=== PATIENT | male | born 1950 | race Caucasian/White ===

== ENCOUNTER → 2017-04-26 | Outpatient (CLI) | payer OTHER ==
[~2017-04-26] MED LIST: ASPI-482 PO; CANA300T PO; CARV12.5 PO; CELE200C PO; CHOL10003 PO; CHOL500016 PO; FOLI1TAB16 PO; GLUC100018 PO; HYDR-2758 PO; LISI2.5T PO; MELA300T PO; SIMV10TA3 PO; TORS20TA2 PO; TRAM50TA PO; UBID200C8 PO; VITA80003 PO
--- NOTE | 2017-04-26 16:24 | RAD ---
FDG tumor localization scan, PET/CT, 04/26/2017: History: Restaging melanoma Following IV injection of 13.6 mCi of 18 F-FDG imaging was performed from the skull base through the proximal thighs. The patient refused to allow his legs to be scanned at this time. The noncontrast CT component was performed for attenuation correction and anatomic localization purposes rather than for primary diagnosis. The patient's blood glucose level at the time of injection was 107 MG/DL. There appears to have been prior surgical resection of the left parotid gland. There is a small hypermetabolic focus along the superior aspect of the surgical site along the lateral aspect of the left mandibular condyle. The maximum SUV at this level is 4.0. Just medial to this level along the posterior inferior aspect of the left mandibular condyle there is a smaller focus of mildly increased FDG uptake demonstrating a maximum SUV of 2.8. Just inferior to this level on the left there is an additional small focus of mildly increased activity demonstrated a maximum SUV of 3.1. This lies along the superior margin of a cluster of surgical clips. No other significant abnormal FDG uptake is seen in the neck. No abnormal pulmonary or mediastinal FDG uptake is seen. Normal GI tract and urinary tract activity is present in the abdomen and pelvis. No hypermetabolic abdominal or pelvic process is seen. There is a tiny focus of mildly increased activity involving the skin along the dorsal aspect of the distal left forearm. This is a nonspecific appearance and may be inflammatory. Clinical correlation is suggested. Incidental CT findings include the presence of scattered coronary artery calcifications. There is mild nonspecific prostatic enlargement. IMPRESSION: 1. Status post left parotid gland resection with small foci of increased FDG uptake near the surgical bed as described above. Tumor recurrence is a possibility. 2. No PET evidence of distant metastatic disease.
== END | disposition home or self-care (01) ==
LOC: PETSC 12:33
PROVIDERS: ATTEND Radiology Radiation Oncology
DX: N40.0 Benign prostatic hyperplasia without lower urinary tract symptoms (principal); C43.9 Malignant melanoma of skin, unspecified
CPT/HCPCS: 78815; A9552

== ENCOUNTER → 2017-06-01 | Outpatient (CLI) | payer OTHER ==
[2017-06-01] MEDS: GADOBUTROL 10 MMOL/10 ML VIAL IV (11:22)
== END | disposition home or self-care (01) ==
LOC: MRI 10:17
DX: R51 Headache (principal); C07 Malignant neoplasm of parotid gland; C77.0 Secondary and unspecified malignant neoplasm of lymph nodes of head, face and neck; C44.320 Squamous cell carcinoma of skin of unspecified parts of face; Z98.890 Other specified postprocedural states
CPT/HCPCS: 70553; A9585

== ENCOUNTER → 2017-11-15 | Outpatient (CLI) | payer OTHER | END | disposition home or self-care (01) | LOC: PETSC 10:37 | DX: C07 Malignant neoplasm of parotid gland (principal); I10 Essential (primary) hypertension; Z92.3 Personal history of irradiation | CPT/HCPCS: 78815; A9552 ==

== ENCOUNTER 2017-11-16 06:39 | Outpatient (CLI) | payer OTHER ==
[2017-11-16 07:04] LABS: ADD MAN DIFF? NO; BASO % 1 % (0-3); EOS # 0.2 x10^3/uL (0.0-0.7); EOS % 3 % (0-3); HEMATOCRIT 41.3 % (39.0-53.0); HEMOGLOBIN 14.5 g/dL (13.0-17.5); LYMPH # 0.9 x10^3/uL (1.0-4.8); LYMPH % 12 % (24-48); MEAN CORPUSCULAR HEMOGLOBIN 33 pg (25-35); MEAN CORPUSCULAR HGB CONC 35 g/dL (31-37); MEAN CORPUSCULAR VOLUME 95 fL (79-100); MONO # 0.7 x10^3/uL (0.0-1.1); MONO % 9 % (0-9); NEUT # 5.6 x10^3uL (1.8-7.7); NEUT % 75 % (31-73); PLATELET COUNT 241 x10^3/uL (140-400); RED BLOOD COUNT 4.38 x10^6/uL (4.30-5.70); RED CELL DISTRIBUTION WIDTH 12.8 % (11.5-14.5); WHITE BLOOD COUNT 7.4 x10^3/uL (4.0-11.0)
[2017-11-16 07:31] LABS: ANION GAP 2 (6-14); BLOOD UREA NITROGEN 21 mg/dL (8-26); CALCIUM 9.6 mg/dL (8.5-10.1); CARBON DIOXIDE 31 mmol/L (21-32); CHLORIDE 103 mmol/L (98-107); CREATININE 0.9 mg/dL (0.7-1.3); GFR 84.2; GLUCOSE 123 mg/dL (70-99); POTASSIUM 4.1 mmol/L (3.5-5.1); SODIUM 136 mmol/L (136-145)
[2017-11-16 07:51] LABS: INR 1.2 (0.8-1.1); PARTIAL THROMBOPLASTIN TIME 31 SEC (24-38); PROTHROMBIN TIME PATIENT 14.2 SEC (11.7-14.0)
[2017-11-16] MEDS ORDERED: HEPARIN PF 500 UNIT/5 ML DISP.SYRIN. IV (08:12)
[2017-11-16] MEDS ORDERED: LIDOCAINE 1%/EPI 1:100,000 20 ML VIAL. (08:12)
[2017-11-16] MEDS ORDERED: fentaNYL PF VIAL 100 MCG/2 ML VIAL (08:46)
[2017-11-16] MEDS ORDERED: MIDAZOLAM HCL/PF 2 MG/2 ML VIAL. (08:46)
[2017-11-16] MEDS: LIDOCAINE 1%/EPI 1:100,000 20 ML VIAL. INJ (09:31)
[2017-11-16] MEDS: HEPARIN PF 500 UNIT/5 ML DISP.SYRIN. IV (09:31)
[2017-11-16] MEDS: fentaNYL PF VIAL 100 MCG/2 ML VIAL IV (09:32)
[2017-11-16] MEDS: MIDAZOLAM HCL/PF 2 MG/2 ML VIAL. IV (09:33)
== END 2017-11-16 12:10 | disposition home or self-care (01) ==
LOC: INTRAD 06:39
DX: Z45.2 Encounter for adjustment and management of vascular access device (principal); C76.0 Malignant neoplasm of head, face and neck; I11.0 Hypertensive heart disease with heart failure; I50.9 Heart failure, unspecified; I25.10 Atherosclerotic heart disease of native coronary artery without angina pectoris; E11.9 Type 2 diabetes mellitus without complications; F41.9 Anxiety disorder, unspecified; I48.91 Unspecified atrial fibrillation; Z95.5 Presence of coronary angioplasty implant and graft; Z85.118 Personal history of other malignant neoplasm of bronchus and lung; Z87.440 Personal history of urinary (tract) infections; M19.90 Unspecified osteoarthritis, unspecified site; Z79.01 Long term (current) use of anticoagulants; Z79.84 Long term (current) use of oral hypoglycemic drugs
CPT/HCPCS: 36415; 36561; 76937; 77001; 80048; 85025; 85610; 85730; 99152; 99153; C1751; C1788; C1892; J0690; J2250; J3010; J3490

== ENCOUNTER 2017-12-31 16:36 | Inpatient (IN) | payer OTHER ==
[2017-12-31] MEDS: PANTOPRAZOLE IV PUSH 40 MG VIAL. IVP (17:56)
[2017-12-31] MEDS: ONDANSETRON PF 4 MG/2 ML VIAL. IV (17:57)
[2017-12-31] MEDS: LIDOCAINE 5% TOPICAL OINTMENT 35GM TUBE. TP (17:58)
[2017-12-31 18:06] LABS: ADD MAN DIFF? NO
[2017-12-31 18:08] LABS: BASO % 1 % (0-3); EOS % 0 % (0-3); HEMATOCRIT 32.7 % (39.0-53.0); HEMOGLOBIN 11.9 g/dL (13.0-17.5); LYMPH # 0.9 x10^3/uL (1.0-4.8); LYMPH % 11 % (24-48); MEAN CORPUSCULAR HEMOGLOBIN 34 pg (25-35); MEAN CORPUSCULAR HGB CONC 36 g/dL (31-37); MEAN CORPUSCULAR VOLUME 93 fL (79-100); MONO # 0.9 x10^3/uL (0.0-1.1); MONO % 11 % (0-9); NEUT # 6.4 x10^3uL (1.8-7.7); NEUT % 78 % (31-73); PLATELET COUNT 185 x10^3/uL (140-400); RED BLOOD COUNT 3.54 x10^6/uL (4.30-5.70); RED CELL DISTRIBUTION WIDTH 13.1 % (11.5-14.5); WHITE BLOOD COUNT 8.2 x10^3/uL (4.0-11.0)
[2017-12-31] MEDS: IV NORMAL SALINE 1000ML BAG 1,000 ML IV ×2 (18:15→22:59)
[2017-12-31 18:20] LABS: ANION GAP 9 (6-14); BLOOD UREA NITROGEN 16 mg/dL (8-26); CALCIUM 8.2 mg/dL (8.5-10.1); CARBON DIOXIDE 28 mmol/L (21-32); CHLORIDE 98 mmol/L (98-107); CREATININE 0.9 mg/dL (0.7-1.3); GFR 84.2; GLUCOSE 154 mg/dL (70-99); MAGNESIUM 1.4 mg/dL (1.8-2.4); SODIUM 135 mmol/L (136-145)
[2017-12-31 18:25] LABS: POTASSIUM 2.9 mmol/L (3.5-5.1)
[2017-12-31 18:27] LABS: TROPONINI < 0.017 ng/mL (0.000-0.055)
[2017-12-31 18:34] LABS: NT-PRO BNP 739 pg/mL (0-124)
[2017-12-31 18:34] LABS: CKMB MASS < 0.5 ng/mL (0.0-3.6); CREATINE KINASE 16 U/L (39-308)
[2017-12-31] MEDS: POTASSIUM CHLORIDE 20 MEQ TABLET.ER. PO (18:40)
[2017-12-31 18:53] LABS: BILIRUBIN,URINE NEGATIVE (NEG); CLARITY,URINE CLOUDY; COLOR,URINE YELLOW; GLUCOSE,URINE 250 mg/dL (NEG); NITRITE,URINE NEGATIVE (NEG); PROTEIN,URINE 30 mg/dL (NEG-TRACE); UROBILINOGEN,URINE 0.2 mg/dL (0.2 mg/dL)
[2017-12-31 19:01] LABS: AMORPHOUS SEDIMENT,UR PRESENT /HPF; BACTERIA,URINE 0 /HPF (0-FEW); RBC,URINE OCC /HPF (0-2)
[2017-12-31] MEDS ORDERED: ACETAMINOPHEN 325 MG TABLET. PO (21:00)
[2017-12-31] MEDS ORDERED: DEXTROSE 50% 25 GM / 50ML DISP.SYRIN. IV (21:00)
[2017-12-31] MEDS ORDERED: MORPHINE SULFATE 4 MG/ML DISP.SYRIN. IV (21:00)
[2017-12-31] MEDS: AMOXICILLIN 250 MG CAPSULE. PO (22:57)
[2017-12-31] MEDS: MORPHINE ER 15 MG TABLET.ER PO (22:58)
[2017-12-31] MEDS: ZOLPIDEM 5 MG TABLET. PO (23:15)
[2018-01-01] MEDS: oxyCODONE/APAP 10/325 1 TAB TABLET PO ×3 (02:13→23:20)
[2018-01-01 04:33] LABS: ADD MAN DIFF? NO
[2018-01-01 04:43] LABS: BASO % 0 % (0-3); EOS % 0 % (0-3); HEMATOCRIT 30.1 % (39.0-53.0); HEMOGLOBIN 10.9 g/dL (13.0-17.5); LYMPH % 14 % (24-48); MEAN CORPUSCULAR HEMOGLOBIN 33 pg (25-35); MEAN CORPUSCULAR HGB CONC 36 g/dL (31-37); MEAN CORPUSCULAR VOLUME 92 fL (79-100); MONO # 0.9 x10^3/uL (0.0-1.1); MONO % 13 % (0-9); NEUT # 5.4 x10^3uL (1.8-7.7); NEUT % 73 % (31-73); PLATELET COUNT 169 x10^3/uL (140-400); RED BLOOD COUNT 3.28 x10^6/uL (4.30-5.70); RED CELL DISTRIBUTION WIDTH 13.2 % (11.5-14.5); WHITE BLOOD COUNT 7.5 x10^3/uL (4.0-11.0)
[2018-01-01 05:02] LABS: ANION GAP 8 (6-14); BLOOD UREA NITROGEN 13 mg/dL (8-26); CALCIUM 7.5 mg/dL (8.5-10.1); CARBON DIOXIDE 28 mmol/L (21-32); CHLORIDE 101 mmol/L (98-107); GFR 74.5; GLUCOSE 132 mg/dL (70-99); POTASSIUM 3.1 mmol/L (3.5-5.1); SODIUM 137 mmol/L (136-145)
[2018-01-01] MEDS ORDERED: ZOLPIDEM 5 MG TABLET. PO (09:00)
[2018-01-01] MEDS: AMOXICILLIN 250 MG CAPSULE. PO (09:10)
[2018-01-01] MEDS: MORPHINE ER 15 MG TABLET.ER PO ×2 (09:10→21:07)
[2018-01-01 09:30] LABS: ALBUMIN 2.4 g/dL (3.4-5.0)
[2018-01-01] MEDS: MAGNESIUM SULFATE 4GM 100 ML IV (10:13)
[2018-01-01] MEDS: cefTRIAXone IV Push 1 GM VIAL. IVP (10:15)
[2018-01-01] MEDS: POTASSIUM CHLORIDE 20 MEQ TABLET.ER. PO ×2 (10:16)
[2018-01-01] MEDS: PIPERACILLIN/TAZOBACTAM 3.375 GM in IV NORMAL SALINE 50ML 50 ML IV ×3 (12:17→23:22)
[2018-01-01] MEDS: ONDANSETRON PF 4 MG/2 ML VIAL. IV (17:41)
[2018-01-01 18:16] LABS: POC GLUCOSE 141 mg/dL (70-99)
[2018-01-01 20:28] LABS: POC GLUCOSE 157 mg/dL (70-99)
[2018-01-01] MEDS ORDERED: MELATONIN PO (21:00)
[2018-01-01] MEDS: ZOLPIDEM 5 MG TABLET. PO (23:20)
[2018-01-02 04:42] LABS: ANION GAP 5 (6-14); BLOOD UREA NITROGEN 12 mg/dL (8-26); CALCIUM 8.1 mg/dL (8.5-10.1); CARBON DIOXIDE 30 mmol/L (21-32); CHLORIDE 102 mmol/L (98-107); GFR 74.5; GLUCOSE 118 mg/dL (70-99); POTASSIUM 3.3 mmol/L (3.5-5.1); SODIUM 137 mmol/L (136-145)
[2018-01-02] MEDS: PIPERACILLIN/TAZOBACTAM 3.375 GM in IV NORMAL SALINE 50ML 50 ML IV ×3 (06:29→18:24)
[2018-01-02] MEDS: FLUoxetine HCL 20 MG CAPSULE PO ×2 (09:00→21:57)
[2018-01-02] MEDS: POTASSIUM CHLORIDE 20 MEQ TABLET.ER. PO ×2 (09:16→17:10)
[2018-01-02] MEDS: MORPHINE ER 15 MG TABLET.ER PO ×2 (09:16→21:57)
[2018-01-02] MEDS ORDERED: MAG HYDROX/ALUMINUM HYD/SIMETH 30 ML ORAL.SUSP PO (13:00)
[2018-01-02] MEDS: ONDANSETRON PF 4 MG/2 ML VIAL. IV (13:16)
[2018-01-02 13:32] LABS: POC GLUCOSE 150 mg/dL (70-99)
[2018-01-02 17:03] LABS: POC GLUCOSE 144 mg/dL (70-99)
[2018-01-02] MEDS: oxyCODONE/APAP 10/325 1 TAB TABLET PO (17:10)
[2018-01-02 21:18] LABS: POC GLUCOSE 127 mg/dL (70-99)
[2018-01-02] MEDS: ZOLPIDEM 5 MG TABLET. PO (21:57)
[2018-01-03] MEDS: PIPERACILLIN/TAZOBACTAM 3.375 GM in IV NORMAL SALINE 50ML 50 ML IV ×3 (01:09→12:00)
[2018-01-03] MEDS: oxyCODONE/APAP 10/325 1 TAB TABLET PO ×2 (02:22→13:44)
[2018-01-03 08:24] LABS: POC GLUCOSE 97 mg/dL (70-99)
[2018-01-03] MEDS: POTASSIUM CHLORIDE 20 MEQ TABLET.ER. PO (08:48)
[2018-01-03] MEDS: MORPHINE ER 15 MG TABLET.ER PO (08:48)
[2018-01-03] MEDS: FLUoxetine HCL 20 MG CAPSULE PO (08:48)
[2018-01-03] MEDS: SIMETHICONE/SOD BICARB/CITRIC ACID PACKET. PO (09:30)
[2018-01-03] MEDS: BARIUM SULFATE 340 GM SUSPENSION. PO (09:30)
[2018-01-03] MEDS: BARIUM SULFATE 40% (APPLE) 148 GM PWD. PO (09:30)
[2018-01-03] MEDS: BARIUM SULFATE 60% 355 ML SUSP PO (10:25)
[2018-01-03 11:31] LABS: HEMOGLOBIN A1C 5.9 % (4.8-5.6)
[2018-01-03 12:12] LABS: POC GLUCOSE 118 mg/dL (70-99)
== END 2018-01-03 15:35 | disposition home or self-care (01) | DRG 146 ==
LOC: ER 16:36 → 6 SOUTH 20:37
DX: C07 Malignant neoplasm of parotid gland (principal); E43 Unspecified severe protein-calorie malnutrition; E87.6 Hypokalemia; E11.9 Type 2 diabetes mellitus without complications; E78.00 Pure hypercholesterolemia, unspecified; E78.5 Hyperlipidemia, unspecified; E86.0 Dehydration; G47.33 Obstructive sleep apnea (adult) (pediatric); H66.92 Otitis media, unspecified, left ear; I10 Essential (primary) hypertension; I25.10 Atherosclerotic heart disease of native coronary artery without angina pectoris; I48.91 Unspecified atrial fibrillation; Z80.3 Family history of malignant neoplasm of breast; Z85.818 Personal history of malignant neoplasm of other sites of lip, oral cavity, and pharynx; Z85.828 Personal history of other malignant neoplasm of skin; Z92.21 Personal history of antineoplastic chemotherapy; Z92.3 Personal history of irradiation; F32.9 Major depressive disorder, single episode, unspecified; E87.8 Other disorders of electrolyte and fluid balance, not elsewhere classified; E83.42 Hypomagnesemia; Z68.27 Body mass index [BMI] 27.0-27.9, adult
CPT/HCPCS: 36415; 71045; 74220; 80048; 81001; 82040; 82553; 82962; 83036; 83735; 83880; 84484; 85025; 87086; 92526-GN; 92610-GN; 93005; 96361; 96374; 96375; 99285; 99285-25; C9113; J0696; J2405; J2543; J3475; J7030

== ENCOUNTER → 2018-01-07 | Outpatient (CLI) | payer OTHER ==
[2018-01-03 14:52] VITALS: BP 139/70
[~2018-01-07] MED LIST changes: +AMOX1TAB61 PO; +AMPI500C2 PO; +APIX5TAB4 PO; +ASPI-630 PO; +CLIN300C8 PO; +DICL100G18 TP; +DIGO125T PO; +FLUO40CA9 PO; +GABA-586 PO; +HYDR-2766 PO; +HYDR-963 PO; +IOHEXOL 300 MG/ML 100ML VIAL. IV ONE; +KETO10TA PO; +MELA3TAB2 PO; +METO50TA6 PO; +MORP30TA83 PO; +OXYC-328 PO; +POTA20TA82 PO; +POTA500T5 PO; +PREG75CA PO; +RANI300C PO; +RANI300T PO; +RIVA20TA2 PO; +SIMV20TA3 PO; +TORS20TA PO; +UBID10CA5 PO; +UBID200C32 PO; -UBID200C8 PO; +ZOLP5TAB PO
--- NOTE | 2018-01-07 15:04 | RAD ---
Examination: CT head without and with IV contrast HISTORY: History of squamous cell cancer of the parotid Exposure: One or more of the following individualized dose reduction techniques were utilized for this examination: 1. Automated exposure control 2. Adjustment of the mA and/or kV according to patient size 3. Use of iterative reconstruction technique Technique: Axial CT images of the head was performed without and with IV contrast. FINDINGS: There is no evidence of midline shift. There is no acute intracranial bleed or extra-axial fluid collection identified. The wang-white matter differentiation is maintained. The visualized lateral ventricles, third ventricle, fourth ventricle are appropriate for age. There is no obvious enhancing large lesion in the brain. Partially visualized peripherally enhancing mass identified in the left parotid region measuring 5.1 x 3.5 cm. The visualized paranasal sinuses are clear. There is a opacification the left mastoid air cells. IMPRESSION: 1. No acute intracranial findings. 2. Partially visualized enhancing mass identified in the left parotid gland probably known squamous cell carcinoma. Please see CT report for further details. 3. Opacification of the left mastoid air cells could be fluid in the mastoid air cells or mastoiditis without coalescence. Electronically signed by: Ismael Mcnamara MD (01/07/2018 2:59 PM) [id number]
--- NOTE | 2018-01-08 16:56 | RAD ---
Examination: CT soft tissue neck with IV contrast HISTORY: History of squamous cell carcinoma of the parotid COMPARISON: None available TECHNIQUE: Axial CT images of the soft tissue neck were performed with IV contrast. Coronal and sagittal reformats are performed Exposure: One or more of the following individualized dose reduction techniques were utilized for this examination: 1. Automated exposure control 2. Adjustment of the mA and/or kV according to patient size 3. Use of iterative reconstruction technique FINDINGS: Visualized intracranial portion grossly appears unremarkable. There is a peripherally enhancing, centrally necrotic ill-defined mass identified in the left parotid region measuring 7.3 cm in CC dimension, 3.5 cm in transverse dimension, 5.7 cm in AP dimension likely known left parotid mass. In the inferior aspect of the mass there appears to be an ulceration extending to the skin. There is mild bony cortical disruption of the left posterior zygomatic arch and also possible cortical disruption of the skull bone just anterior to the left mastoid air cells, best visualized on coronal image 31. Medially and posteriorly the mass appears to extend into the external auditory canal. The evaluation the medial extent is limited. Anteriorly and inferiorly the mass appears to extend superficial to the mandible abutting the left masseter muscle posteriorly. There is opacification of the left mastoid air cells. Surgical clips identified in the left carotid region. Moderate degenerative changes cervical spine. No radiologically significant cervical lymphadenopathy is identified. IMPRESSION: 1. Large mass likely malignancy identified in the left parotid region. Recommend MRI for further evaluation for better delineation of the mass. Electronically signed by: Ismael Mcnamara MD (01/08/2018 4:52 PM) [id number]
== END | disposition home or self-care (01) ==
LOC: CT 08:57
PROVIDERS: ATTEND Internal Medicine Hematology & Oncology
DX: C07 Malignant neoplasm of parotid gland (principal); I11.0 Hypertensive heart disease with heart failure; I50.9 Heart failure, unspecified; E11.9 Type 2 diabetes mellitus without complications; I25.10 Atherosclerotic heart disease of native coronary artery without angina pectoris; E78.00 Pure hypercholesterolemia, unspecified; Z95.5 Presence of coronary angioplasty implant and graft
CPT/HCPCS: 70470; 70491; Q9967

== ENCOUNTER 2018-03-26 13:04 | Inpatient (IN) | payer OTHER ==
[~2018-03-26] VITALS: Ht 177.8 cm; Wt 80.0 kg
[~2018-03-26 13:04] MED LIST changes: +APIX5TAB PO; +DOCU-109 PO; -IOHEXOL 300 MG/ML 100ML VIAL. IV ONE; +MORP15TA PO; +ONDA8TAB9 PO; +POLY17PO3 PO
[2018-03-26 15:00] VITALS: BP 124/61
--- NOTE | 2018-03-26 15:09 | PDOC1 ---
History and Physical Date of Admission Date of Admission 03/26/18 Identification/Chief Complaint Chief Complaint weakness, N/V Source Source: Caregiver, Chart review, Patient History of Present Illness History of Present Illness Mr. 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 Jeronimo's office for weakness. pt has a huge left face Ca ulcer following with [facility] once every 2 weeks, last week saw them and started levaquin from yesterday. He had RT 1 year ago, and last chemo was 2 weeks ago, currently fu with dr. Gaona with chemo and also got some autoimmune meds as per dr. Go. Pt has chronic severe left face, ear pain discharge and i see the dressing stuffed inside with foul smell. pt also has left forearm ca on RT from yesterday,total 10 times as per pt. pt also feels very weak, has 3 times N/V last week, low po intake. Pt looks calm to me, but admited has cough ,sob at home. He was dced here 1 month ago for similar symptoms. on oxycodone at home for pain. Past Medical History Cardiovascular: HTN Pulmonary: No pertinent hx GI: No pertinent hx Heme/Onc: Cancer Hepatobiliary: No pertinent hx Past Surgical History Past Surgical History: No pertinent history Family History Family History: Hypertension Social History Smoke: No ALCOHOL: none Allergies Allergies Allergies Coded Allergies Type Severity Reaction Last Updated Verified No Known Drug Allergies 10/02/16 No ROS Review of System CONSTITUTIONAL: No fever or chills EYES: No recent changes SKIN: No rash or itching CARDIOVASCULAR: No chest pain, syncope, palpitations, or edema RESPIRATORY: No SOB or cough GASTROINTESTINAL: No nausea, vomiting or abdominal pain NEUROLOGICAL: No headaches or weakness ENDOCRINE: No cold or heat intolerance GENITOURINARY: No urgency or frequency of urination MUSCULOSKELETAL: No back pain or joint pain LYMPHATICS: No enlarged lymph nodes PSYCHIATRIC: No anxiety or depression Physical Exam Physical Exam GEN.: No apparent distress. Alert and oriented. HEENT: left face has a huge Ca ulcer, with necrotic edges, with dressing stuffed in, severe tenderness, foul smell. NECK: Supple. LUNGS: Clear to auscultation. HEART: RRR, S1, S2 present. Peripheral pulses intact ABDOMEN: Soft, nontender. Positive bowel sounds. EXTREMITIES: Without any cyanosis. NEUROLOGIC: Normal speech, normal tone PSYCHIATRIC: Normal affect, normal mood. SKIN: left forearm has a skin Ca lesion. VTE Prophylaxis Ordered VTE Prophylaxis Devices: No VTE Pharmacological Prophylaxi: Yes Assessment/Plan Assessment/Plan generalized weakness. N/V with Chemo and RT left face squamous cell Ca s/p RT, CHEMO, mets to left forearm chronic pain opoids dependence. HTN DNR plan: RT, onco CONSULT id CONSUlt, levaquin for now wound care consult nutrition consult PPN for now labs CXR pain control dvt ppx PTOT need verify home meds pt looks depressed. RAFAT ROWAN MD Mar 26, 2018 15:09
[2018-03-26] MEDS ORDERED: traMADol 50 MG TABLET PO PRN (15:15)
[2018-03-26] MEDS ORDERED: DOCUSATE SODIUM 100 MG CAPSULE. PO PRN (15:15)
[2018-03-26] MEDS ORDERED: ACETAMINOPHEN 325 MG TABLET. PO PRN (15:15)
[2018-03-26] MEDS ORDERED: ALBUTEROL SULFATE 2.5 MG/3 ML NEBU. NEB PRN (15:15)
[2018-03-26] MEDS ORDERED: MORPHINE SULFATE 2 MG/ML VIAL. IV PRN (15:15)
--- NOTE | 2018-03-26 16:23 | PDOC ---
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 He had a complete response and recurred in the treatment field. He had palliative chemo with cisplat which was poorly tolerated. Had Opdivo.recently. Also has biopsy proven separate squamous cell carcinoma of left forearm and just initiated a 10 day course of treatment. Lesion progressed with bleeding after initial shave bx. Now progressively weak. Unable to eat well due to 4 day history of progressive sore throat. PE Thin, emaciated. Lt face and ear covered with bandage, Left forearm lesion also covered. Neck subtle fullness left neck with no discrete adenopathy. 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 On Opdivo trial. 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 Plan Routine labs, IVF or PPN as directed by Dr. Fátima Vazquez. Wound care eval for both sites, left face and left forearm. GI eval for assessment of sore throat. HELEN ROSALES MD Mar 26, 2018 16:23
--- NOTE | 2018-03-26 16:55 | RAD ---
AP and Lateral Views of the Chest 03/26/2018 3:14 PM Indication: COUGH AND SHORT OF BREATH, HISTORY OF SKIN CANCER Comparison: Chest radiograph December 31, 2017. Findings: Right internal jugular port is well-positioned. There is no focal consolidation or infiltrate identified. The cardiomediastinal silhouette is within normal limits. There is no evidence of pneumothorax or pleural effusion. No acute osseous abnormalities are identified. Impression: No evidence of acute cardiopulmonary process. Electronically signed by: Joseluis Elkins MD (03/26/2018 4:52 PM) [id number]
[2018-03-26] MEDS: AMINO AC 3%/ELECTROLYTE/GLYCER 1,000 ML IV SCH (17:50)
[2018-03-26 18:39] LABS: BASO # 0.1 x10^3/uL (0.0-0.2); BASO % 1 % (0-3); EOS # 0.1 x10^3/uL (0.0-0.7); EOS % 1 % (0-3); HEMATOCRIT 26.6 % (39.0-53.0); HEMOGLOBIN 9.8 g/dL (13.0-17.5); LYMPH # 0.7 x10^3/uL (1.0-4.8); LYMPH % 6 % (24-48); MEAN CORPUSCULAR HEMOGLOBIN 35 pg (25-35); MEAN CORPUSCULAR HGB CONC 37 g/dL (31-37); MEAN CORPUSCULAR VOLUME 96 fL (79-100); MONO % 9 % (0-9); NEUT % 84 % (31-73); PLATELET COUNT 263 x10^3/uL (140-400); RED BLOOD COUNT 2.77 x10^6/uL (4.30-5.70); RED CELL DISTRIBUTION WIDTH 13.7 % (11.5-14.5); WHITE BLOOD COUNT 10.7 x10^3/uL (4.0-11.0)
[2018-03-26 18:43] LABS: CALCIUM 8.5 mg/dL (8.5-10.1); CREATININE 0.7 mg/dL (0.7-1.3); GFR 112.5
[2018-03-26 18:47] LABS: MAGNESIUM 1.5 mg/dL (1.8-2.4); PHOSPHORUS 3.5 mg/dL (2.6-4.7)
[2018-03-26 18:54] LABS: POTASSIUM 2.9 mmol/L (3.5-5.1)
[2018-03-26] MEDS ORDERED: POTASSIUM CHLORIDE 20 MEQ TABLET.ER. PO ONE (19:30)
[2018-03-26 19:48] VITALS: BP 88/54
[2018-03-26] MEDS: HYDROmorphone 2 MG/ML VIAL IV PRN (20:52)
[2018-03-26 23:35] VITALS: BP 83/59
[2018-03-27] MEDS: HYDROmorphone 2 MG/ML VIAL IV PRN ×5 (01:39→19:07)
--- NOTE | 2018-03-27 02:42 | CONS ---
DATE OF CONSULTATION: 03/26/2018 REQUESTING PHYSICIAN: Dr. Sandra Vazquez. REASON FOR CONSULTATION: Recurrent squamous cell carcinoma of the left parotid gland, now on treatment with Opdivo and the patient admitted for dehydration and progressive weakness. HISTORY OF PRESENT ILLNESS: The patient is a 67-year-old gentleman who had a left parotid gland carcinoma in 04/2016 with local recurrence, status post aggressive surgery. Fine needle aspiration of the left parotid gland on 04/11/2016 revealed squamous cell carcinoma. He underwent left parotidectomy and left modified neck dissection on 04/28/2016 which revealed a T2 N1 M0, stage 3 squamous cell carcinoma. He had recurrent disease in 2016 requiring radiation therapy between September to November of 2016. He had progressive disease in 09/2017 and he was started on chemotherapy with cisplatin in 11/2017. He completed 3 cycles and then it was discontinued due to worsening wound infection in 01/2018. CT scan on 02/13/2018 revealed a large necrotic parotid mass and possible internal jugular vein thrombosis and osseous destruction. Second line treatment with nivolumab was begun on 03/08/2018. He is now admitted to [facility] on 03/26/2018 with progressive generalized weakness and poor oral intake. PAST MEDICAL HISTORY: Hypertension. FAMILY HISTORY: Positive for hypertension. SOCIAL HISTORY: No smoking or alcohol abuse. REVIEW OF SYSTEMS: A 12-point review of system was performed. Pertinent positives are mentioned in the history of present illness. Rest of the system review is negative. PHYSICAL EXAMINATION: GENERAL APPEARANCE: The patient is a 67-year-old gentleman who is poorly nourished and in no acute cardiorespiratory distress. VITAL SIGNS: Blood pressure 124/61, temperature 98.7. HEAD: Atraumatic, normocephalic. He has dressing in place over the left face from management of the wound from malignancy. NECK: Supple. CHEST: Bilaterally symmetrical. HEART: S1, S2 normal. ABDOMEN: Soft, nontender. CENTRAL NERVOUS SYSTEM: No focal deficits. LYMPHATICS: No lymphadenopathy. SKIN: No rashes. PSYCHOLOGIC: He has a flat affect. LABORATORY DATA: Last CBC from 02/16/2018 revealed hemoglobin of 8.1. Further labs are pending. IMPRESSION AND PLAN: 1. 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 He was started on palliative treatment with Opdivo on 03/14/2018. He is due for cycle #2 on 03/28/2018. I will defer cycle 2 because of worsening weakness, dehydration, and declining functional status. I have advised him to follow up with Dr. Gaona next week for reevaluation to see if he would be fit enough to continue treatment. 2. Generalized weakness and dehydration. Management per Dr. Vazquez. 3. Left facial wound. Consult wound management. LYNDSEY WELCH MD DR: BRODERICK/edith JOB#: [id number] / [id number]
[2018-03-27 03:51] VITALS: BP 162/66
[2018-03-27] MEDS: AMINO AC 3%/ELECTROLYTE/GLYCER 1,000 ML IV SCH ×2 (05:43→17:50)
[2018-03-27 06:20] LABS: BASO % 0 % (0-3); EOS # 0.1 x10^3/uL (0.0-0.7); EOS % 1 % (0-3); HEMATOCRIT 26.6 % (39.0-53.0); HEMOGLOBIN 9.3 g/dL (13.0-17.5); LYMPH # 0.6 x10^3/uL (1.0-4.8); LYMPH % 5 % (24-48); MEAN CORPUSCULAR HEMOGLOBIN 34 pg (25-35); MEAN CORPUSCULAR HGB CONC 35 g/dL (31-37); MEAN CORPUSCULAR VOLUME 96 fL (79-100); MONO # 1.1 x10^3/uL (0.0-1.1); MONO % 10 % (0-9); NEUT # 9.3 x10^3uL (1.8-7.7); NEUT % 85 % (31-73); PLATELET COUNT 239 x10^3/uL (140-400); RED BLOOD COUNT 2.76 x10^6/uL (4.30-5.70); RED CELL DISTRIBUTION WIDTH 13.8 % (11.5-14.5)
[2018-03-27 06:31] LABS: CALCIUM 8.7 mg/dL (8.5-10.1); CREATININE 0.8 mg/dL (0.7-1.3); GFR 96.4; POTASSIUM 3.4 mmol/L (3.5-5.1)
--- NOTE | 2018-03-27 09:03 | PDOC ---
PROGRESS NOTES Subjective Subjective HPI -f/u of Recurrent squamous cell carcinoma of the left parotid gland ROS - no fever Objective Objective Vital Signs Date Time Temp Pulse Resp B/P (MAP) Pulse Ox O2 Delivery O2 Flow Rate FiO2 03/27/18 06:33 98 Room Air 03/27/18 03:51 100.4 84 20 162/66 (98) 100.4 Intake and Output 03/27/18 07:00 Intake Total 110 ml Output Total 850 ml Balance -740 ml Intake Oral 110 ml Output Urine Total 850 ml Physical Exam General: Alert, Oriented X3, No acute distress Neuro: Normal speech Psych/Mental Status: Mental status NL Assessment Assessment IMPRESSION AND PLAN: 1. 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 He was started on palliative treatment with Opdivo on 03/14/2018. He is due for cycle #2 on 03/28/2018. I will defer cycle 2 because of worsening weakness, dehydration, and declining functional status. I have advised him to follow up with Dr. Gaona next week to continue treatment. 2. Generalized weakness. I d/w Dr. Vazquez. Continue supportive care. 3. Left facial wound. Consult wound management. I d/w Dr Campos, agree with broad spectrum abx coverage. Comment Review of Relevant I have reviewed the following items daniella (where applicable) has been applied. Labs Laboratory Tests Test 03/26/18 18:20 03/27/18 05:30 White Blood Count 10.7 x10^3/uL (4.0-11.0) 11.0 x10^3/uL (4.0-11.0) Red Blood Count 2.77 x10^6/uL (4.30-5.70) 2.76 x10^6/uL (4.30-5.70) Hemoglobin 9.8 g/dL (13.0-17.5) 9.3 g/dL (13.0-17.5) Hematocrit 26.6 % (39.0-53.0) 26.6 % (39.0-53.0) Mean Corpuscular Volume 96 fL (79-100) 96 fL (79-100) Mean Corpuscular Hemoglobin 35 pg (25-35) 34 pg (25-35) Mean Corpuscular Hemoglobin Concent 37 g/dL (31-37) 35 g/dL (31-37) Red Cell Distribution Width 13.7 % (11.5-14.5) 13.8 % (11.5-14.5) Platelet Count 263 x10^3/uL (140-400) 239 x10^3/uL (140-400) Neutrophils (%) (Auto) 84 % (31-73) 85 % (31-73) Lymphocytes (%) (Auto) 6 % (24-48) 5 % (24-48) Monocytes (%) (Auto) 9 % (0-9) 10 % (0-9) Eosinophils (%) (Auto) 1 % (0-3) 1 % (0-3) Basophils (%) (Auto) 1 % (0-3) 0 % (0-3) Neutrophils # (Auto) 9.0 x10^3uL (1.8-7.7) 9.3 x10^3uL (1.8-7.7) Lymphocytes # (Auto) 0.7 x10^3/uL (1.0-4.8) 0.6 x10^3/uL (1.0-4.8) Monocytes # (Auto) 1.0 x10^3/uL (0.0-1.1) 1.1 x10^3/uL (0.0-1.1) Eosinophils # (Auto) 0.1 x10^3/uL (0.0-0.7) 0.1 x10^3/uL (0.0-0.7) Basophils # (Auto) 0.1 x10^3/uL (0.0-0.2) 0.0 x10^3/uL (0.0-0.2) Sodium Level 133 mmol/L (136-145) 135 mmol/L (136-145) Potassium Level 2.9 mmol/L (3.5-5.1) 3.4 mmol/L (3.5-5.1) Chloride Level 95 mmol/L (98-107) 97 mmol/L (98-107) Carbon Dioxide Level 31 mmol/L (21-32) 31 mmol/L (21-32) Anion Gap 7 (6-14) 7 (6-14) Blood Urea Nitrogen 12 mg/dL (8-26) 12 mg/dL (8-26) Creatinine 0.7 mg/dL (0.7-1.3) 0.8 mg/dL (0.7-1.3) Estimated GFR (Cockcroft-Gault) 112.5 96.4 Glucose Level 127 mg/dL (70-99) 151 mg/dL (70-99) Calcium Level 8.5 mg/dL (8.5-10.1) 8.7 mg/dL (8.5-10.1) Phosphorus Level 3.5 mg/dL (2.6-4.7) Magnesium Level 1.5 mg/dL (1.8-2.4) Laboratory Tests Test 03/26/18 18:20 03/27/18 05:30 White Blood Count 10.7 x10^3/uL (4.0-11.0) 11.0 x10^3/uL (4.0-11.0) Red Blood Count 2.77 x10^6/uL (4.30-5.70) 2.76 x10^6/uL (4.30-5.70) Hemoglobin 9.8 g/dL (13.0-17.5) 9.3 g/dL (13.0-17.5) Hematocrit 26.6 % (39.0-53.0) 26.6 % (39.0-53.0) Mean Corpuscular Volume 96 fL (79-100) 96 fL (79-100) Mean Corpuscular Hemoglobin 35 pg (25-35) 34 pg (25-35) Mean Corpuscular Hemoglobin Concent 37 g/dL (31-37) 35 g/dL (31-37) Red Cell Distribution Width 13.7 % (11.5-14.5) 13.8 % (11.5-14.5) Platelet Count 263 x10^3/uL (140-400) 239 x10^3/uL (140-400) Neutrophils (%) (Auto) 84 % (31-73) 85 % (31-73) Lymphocytes (%) (Auto) 6 % (24-48) 5 % (24-48) Monocytes (%) (Auto) 9 % (0-9) 10 % (0-9) Eosinophils (%) (Auto) 1 % (0-3) 1 % (0-3) Basophils (%) (Auto) 1 % (0-3) 0 % (0-3) Neutrophils # (Auto) 9.0 x10^3uL (1.8-7.7) 9.3 x10^3uL (1.8-7.7) Lymphocytes # (Auto) 0.7 x10^3/uL (1.0-4.8) 0.6 x10^3/uL (1.0-4.8) Monocytes # (Auto) 1.0 x10^3/uL (0.0-1.1) 1.1 x10^3/uL (0.0-1.1) Eosinophils # (Auto) 0.1 x10^3/uL (0.0-0.7) 0.1 x10^3/uL (0.0-0.7) Basophils # (Auto) 0.1 x10^3/uL (0.0-0.2) 0.0 x10^3/uL (0.0-0.2) Sodium Level 133 mmol/L (136-145) 135 mmol/L (136-145) Potassium Level 2.9 mmol/L (3.5-5.1) 3.4 mmol/L (3.5-5.1) Chloride Level 95 mmol/L (98-107) 97 mmol/L (98-107) Carbon Dioxide Level 31 mmol/L (21-32) 31 mmol/L (21-32) Anion Gap 7 (6-14) 7 (6-14) Blood Urea Nitrogen 12 mg/dL (8-26) 12 mg/dL (8-26) Creatinine 0.7 mg/dL (0.7-1.3) 0.8 mg/dL (0.7-1.3) Estimated GFR (Cockcroft-Gault) 112.5 96.4 Glucose Level 127 mg/dL (70-99) 151 mg/dL (70-99) Calcium Level 8.5 mg/dL (8.5-10.1) 8.7 mg/dL (8.5-10.1) Phosphorus Level 3.5 mg/dL (2.6-4.7) Magnesium Level 1.5 mg/dL (1.8-2.4) Medications Current Medications Amino Acids/ Glycerin/ Electrolytes 1,000 ml @ 80 mls/hr [id number] IV Last administered on 03/27/18at 05:43; Start 03/26/18 at 16:00 Levofloxacin/ Dextrose 150 ml @ 100 mls/hr Q24H IV Last administered on at 17:51; Start 03/26/18 at 16:00 Acetaminophen (Tylenol) 650 mg PRN Q6HRS PRN PO FEVER; Start 03/26/18 at 15:15 Ondansetron HCl (Zofran) 4 mg PRN Q6HRS PRN IV NAUSEA/VOMITING; Start at 15:15 Morphine Sulfate (Morphine Sulfate) 2 mg PRN Q2HR PRN IV MODERATE TO SEVERE PAIN; Start 03/26/18 at 15:15 Tramadol HCl (Ultram) 50 mg PRN Q6HRS PRN PO MILD TO MODERATE PAIN; Start at 15:15 Docusate Sodium (Colace) 100 mg PRN DAILY PRN PO CONSTIPATION; Start 03/26/18 at 15:15 Oxycodone/ Acetaminophen (Percocet 10/325) 1 tab PRN Q6HRS PRN PO SEVERE PAIN; Start 03/26/18 at 15:15 Albuterol Sulfate (Ventolin Neb Soln) 2.5 mg PRN Q4HRS PRN NEB SHORTNESS OF BREATH; Start 03/26/18 at 15:15 Hydromorphone HCl (Dilaudid) 1 mg Q3HRS PRN IV MODERATE PAIN Last administered on 03/27/18at 01:39; Start 03/26/18 at 19:30 Hydromorphone HCl (Dilaudid) 2 mg Q3HRS PRN IV SEVERE PAIN Last administered on 03/27/18at 06:03; Start 03/26/18 at 19:30 Potassium Chloride (Klor-Con) 40 meq 1X ONCE PO Last administered on at 20:51; Start 03/26/18 at 19:30; Stop 03/26/18 at 19:35; Status DC Active Scripts Active Augmentin 875-125 Tablet (Amoxicillin/Potassium Clav) 1 Each Tablet 1 Tab PO BID Polyethylene Glycol 3350 17 Gm Powd.pack 17 Gm PO PRN DAILY PRN Colace (Docusate Sodium) 100 Mg Capsule 100 Mg PO BID Reported Xarelto (Rivaroxaban) 20 Mg Tablet 20 Mg PO DAILYWSUP Zofran (Ondansetron Hcl) 8 Mg Tablet 8 Mg PO BID PRN Morphine Sulfate 15 Mg Tablet 15 Mg PO BID Ambien (Zolpidem Tartrate) 5 Mg Tablet 1 Tab PO QHS PRN Potassium Chloride 20 Meq Tablet.er 20 Meq PO DAILY Metoprolol Tartrate 50 Mg Tablet 25 Mg PO HS Simvastatin 20 Mg Tablet 20 Mg PO HS Percocet 10-325 Mg Tablet (Oxycodone/Acetaminophen) 1 Each Tablet 1 Tab PO PRN Q6HRS PRN Vitals/I & O Vital Sign - Last 24 Hours 03/26/18 03/26/18 03/26/18 03/26/18 14:37 15:00 15:56 19:48 Temp 98.7 100.8 98.7 100.8 Pulse 84 91 Resp 18 18 B/P (MAP) 124/61 (82) 88/54 (65) Pulse Ox 99 96 96 O2 Delivery Room Air Room Air Room Air Room Air 03/26/18 03/26/18 03/26/18 03/27/18 20:00 20:52 23:35 01:39 Temp 99.0 99.0 Pulse 95 Resp 18 B/P (MAP) 83/59 (67) Pulse Ox 95 O2 Delivery Room Air Room Air Room Air Room Air 03/27/18 03/27/18 03/27/18 03/27/18 02:09 03:51 06:03 06:33 Temp 100.4 100.4 Pulse 84 Resp 20 B/P (MAP) 162/66 (98) Pulse Ox 98 98 O2 Delivery Room Air Room Air Room Air Room Air Intake and Output 03/26/18 03/26/18 03/27/18 15:00 23:00 07:00 Intake Total 50 ml 60 ml Output Total 850 ml Balance 50 ml -790 ml LYNDSEY WELCH MD Mar 27, 2018 09:03
[2018-03-27 09:44] VITALS: BP 134/75
--- NOTE | 2018-03-27 10:41 | PDOC2 ---
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 Admitted w/ weakness and left facial wound. Also has separate SCC of left forearm. History from chart, pt, and [facility]. They tell me he hasn't eatne much for 2 weeks due to decreased appetite. Then started vomiting 4 days ago ( thinks related to antibiotics). As a result, now hurts to swallow and is "scared to eat." Denies dysphagia. Not sure when last vomited - maybe yesterday - generally occurs soon after eating. Has "a little" GERD on ranitidine PRN. No previous dysphagia or odynophagia. Has lost weight. Denies diarrhea or constipation - says last BM ~4 days ago. Denies abd pain. No hematemesis, hematochezia, or melena. No previous EGD or colonoscopy. No liver, GB, pancreas, or PUD history. Reviewed w/ RN - asks for pain medication for face. On PPN. PMH: PMH: per HPI - also A Fib s/p ablation, CAD w/ stent, HTN, RYLEE, GERD, HLD, depression FH: Family History: Cancer (mother - stomach), CVA Social History: Smoke: No ALCOHOL: none ROS: GEN: Denies fevers, chills, sweats HEENT: +sore throat CV: Denies chest pain RESP: Denies shortness of air, cough GI: Per HPI : Denies hematuria, dysuria ENDO: +weight loss NEURO: Denies confusion, dizziness MSK: +weakness SKIN: facial and arm wounds Vitals: Vitals: Vital Signs Date Time Temp Pulse Resp B/P (MAP) Pulse Ox O2 Delivery O2 Flow Rate FiO2 03/27/18 09:44 97.9 91 20 134/75 (94) 97 Room Air 97.9 Labs: Labs: Laboratory Tests Test 03/26/18 18:20 03/27/18 05:30 White Blood Count 10.7 x10^3/uL (4.0-11.0) 11.0 x10^3/uL (4.0-11.0) Red Blood Count 2.77 x10^6/uL (4.30-5.70) 2.76 x10^6/uL (4.30-5.70) Hemoglobin 9.8 g/dL (13.0-17.5) 9.3 g/dL (13.0-17.5) Hematocrit 26.6 % (39.0-53.0) 26.6 % (39.0-53.0) Mean Corpuscular Volume 96 fL (79-100) 96 fL (79-100) Mean Corpuscular Hemoglobin 35 pg (25-35) 34 pg (25-35) Mean Corpuscular Hemoglobin Concent 37 g/dL (31-37) 35 g/dL (31-37) Red Cell Distribution Width 13.7 % (11.5-14.5) 13.8 % (11.5-14.5) Platelet Count 263 x10^3/uL (140-400) 239 x10^3/uL (140-400) Neutrophils (%) (Auto) 84 % (31-73) 85 % (31-73) Lymphocytes (%) (Auto) 6 % (24-48) 5 % (24-48) Monocytes (%) (Auto) 9 % (0-9) 10 % (0-9) Eosinophils (%) (Auto) 1 % (0-3) 1 % (0-3) Basophils (%) (Auto) 1 % (0-3) 0 % (0-3) Neutrophils # (Auto) 9.0 x10^3uL (1.8-7.7) 9.3 x10^3uL (1.8-7.7) Lymphocytes # (Auto) 0.7 x10^3/uL (1.0-4.8) 0.6 x10^3/uL (1.0-4.8) Monocytes # (Auto) 1.0 x10^3/uL (0.0-1.1) 1.1 x10^3/uL (0.0-1.1) Eosinophils # (Auto) 0.1 x10^3/uL (0.0-0.7) 0.1 x10^3/uL (0.0-0.7) Basophils # (Auto) 0.1 x10^3/uL (0.0-0.2) 0.0 x10^3/uL (0.0-0.2) Sodium Level 133 mmol/L (136-145) 135 mmol/L (136-145) Potassium Level 2.9 mmol/L (3.5-5.1) 3.4 mmol/L (3.5-5.1) Chloride Level 95 mmol/L (98-107) 97 mmol/L (98-107) Carbon Dioxide Level 31 mmol/L (21-32) 31 mmol/L (21-32) Anion Gap 7 (6-14) 7 (6-14) Blood Urea Nitrogen 12 mg/dL (8-26) 12 mg/dL (8-26) Creatinine 0.7 mg/dL (0.7-1.3) 0.8 mg/dL (0.7-1.3) Estimated GFR (Cockcroft-Gault) 112.5 96.4 Glucose Level 127 mg/dL (70-99) 151 mg/dL (70-99) Calcium Level 8.5 mg/dL (8.5-10.1) 8.7 mg/dL (8.5-10.1) Phosphorus Level 3.5 mg/dL (2.6-4.7) Magnesium Level 1.5 mg/dL (1.8-2.4) Allergies: Coded Allergies: No Known Drug Allergies (Unverified , 10/02/16) Medications: Current Medications Medications (Trade) Dose Ordered Sig/Sancho Route PRN Reason Start Time Stop Time Status Last Admin Dose Admin Amino Acids/ Glycerin/ Electrolytes 1,000 ml @ 80 mls/hr [id number] IV 03/26/18 16:00 03/27/18 05:43 Levofloxacin/ Dextrose 150 ml @ 100 mls/hr Q24H IV 03/26/18 16:00 03/27/18 09:01 DC 03/26/18 17:51 Hydromorphone HCl (Dilaudid) 1 mg Q3HRS PRN IV MODERATE PAIN 03/26/18 19:30 03/27/18 01:39 Hydromorphone HCl (Dilaudid) 2 mg Q3HRS PRN IV SEVERE PAIN 03/26/18 19:30 03/27/18 06:03 Potassium Chloride (Klor-Con) 40 meq 1X ONCE PO 03/26/18 19:30 03/26/18 19:35 DC 03/26/18 20:51 Imaging: Imaging: CXR Impression: No evidence of acute cardiopulmonary process. Soft Tissue Neck CT (pending) PE: GEN: looks ill HEENT: wound w/ gauze left face - malodorous LUNGS: CTAB HEART: RRR ABD: NABS, S/ND/NT EXTREMITY: No edema SKIN: left arm bandage NEURO/PSYCH: A & O 3, flat - keeps eyes closed for majority or interview, doesn 't offer much A/P: A/P: Weakness, weight loss, odynophagia, vomiting Squamous carcinoma left parotid gland -s/p resection, radiation, chemo Left facial wound/infection SCC left forearm H/o GERD - on H2 [place] PRN CRC screen - none -- ?GI cocktail ?empiric anti-fungal ?EGD/PEG Add acid-weaver needle loom, review w/ Dr. Cloud. ZEB CAMPBELL Mar 27, 2018 10:41
[2018-03-27] MEDS ORDERED: LIDOCAINE 2% VISCOUS 15 ML SOLUTION. SWSW PRN (11:30)
[2018-03-27] MEDS: PIPERACILLIN/TAZOBACTAM 4.5 GM in IV NORMAL SALINE 100ML 100 ML IV SCH ×2 (12:28→17:49)
--- NOTE | 2018-03-27 13:22 | PDOC ---
PROGRESS NOTES History of Present Illness History of Present Illness Assessment/Plan Assessment/Plan generalized weakness. 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 There is also increased bone destruction of the left zygomatic arch, left mastoid air cells, left temporal and left temporal calvarium with possible intracranial extent to the lateral aspect of the left middle cranial fossa. Progression of findings may be due to progression of neoplasm although also consideration of associated infection and osteomyelitis. chronic pain opoids dependence. HTN DNR reactive depression plan: RT, onco CONSULT id CONSUlt, levaquin for now wound care consult nutrition consult PPN for now labs CXR pain control dvt ppx PTOT need verify home meds Vitals Vitals Vital Signs Date Time Temp Pulse Resp B/P (MAP) Pulse Ox O2 Delivery O2 Flow Rate FiO2 03/27/18 12:28 18 Room Air 03/27/18 09:44 97.9 91 134/75 (94) 97 97.9 Physical Exam General: Alert, Oriented X3, No acute distress, moderate distress Lungs: Clear Abdomen: Soft Extremities: No cyanosis Labs LABS CT SOFT TISSUE NECK WO CONTRST Indication: Foul-smelling drainage, parotid cancer Technique: Noncontrast CT imaging was performed of the neck, multiplanar reconstruction images submitted. One or more of the following individualized dose reduction techniques were utilized for this examination: 1. Automated exposure control 2. Adjustment of the mA and/or kV according to patient size 3. Use of iterative reconstruction technique. Comparison: January 07, 2018 Findings: There is again large area of heterogeneous density about expected the left parotid gland extending more superiorly as well as anteriorly to site of left parotidectomy. Overall findings have increased since previous exam, area of heterogeneous density located more lateral to the left zygomatic arch and left the mandible up to about 4.8 cm AP by 3.1 cm transverse by about 8 cm CC, more superiorly contiguous with heterogeneous density extending more posteriorly, this area also larger. For example this measures about 6.5 cm AP by 3 cm on axial images 80 versus previously 4.9 cm AP by 2.5 cm transverse in a similar location on previous exam. There is increased bone destruction of the left zygomatic arch, segmentally now not visualized. There is also increased coalescence of abnormal density of left mastoid air cells with associated bone destruction. There is also new segmental bone erosion of the left temporal calvarium. There are also pockets of gas about the left lateral margin of the left temporomandibular joint, associated degree of bony erosion. Accurate evaluation for intracranial extent is limited without contrast although possible intracranial extent of density in the lateral aspect of the left middle cranial fossa. Right mastoid air cells and paranasal sinuses are aerated. There is degenerative disc disease and spondylosis greatest C3-4 at which there is likely mild spinal stenosis about 8 mm. There is multilevel cervical facet degenerative change as well as uncovertebral degenerative change contributing to neural foramina compromise, more significant narrowing bilaterally at C3-4, on the right at C2-C3, left greater than right at C4-5, on right at C5-6, lesser degree of narrowing at C6-7. IMPRESSION: 1. There is again large area of heterogeneous density about left parotidectomy site extending both anteriorly as well as superiorly. There is also increased bone destruction of the left zygomatic arch, left mastoid air cells, left temporal and left temporal calvarium with possible intracranial extent to the lateral aspect of the left middle cranial fossa. Progression of findings may be due to progression of neoplasm although also consideration of associated infection and osteomyelitis. Electronically signed by: Marcos Morrow MD (03/27/2018 3:30 PM) Laboratory Tests Test 03/26/18 18:20 03/27/18 05:30 White Blood Count 10.7 x10^3/uL (4.0-11.0) 11.0 x10^3/uL (4.0-11.0) Red Blood Count 2.77 x10^6/uL (4.30-5.70) 2.76 x10^6/uL (4.30-5.70) Hemoglobin 9.8 g/dL (13.0-17.5) 9.3 g/dL (13.0-17.5) Hematocrit 26.6 % (39.0-53.0) 26.6 % (39.0-53.0) Mean Corpuscular Volume 96 fL (79-100) 96 fL (79-100) Mean Corpuscular Hemoglobin 35 pg (25-35) 34 pg (25-35) Mean Corpuscular Hemoglobin Concent 37 g/dL (31-37) 35 g/dL (31-37) Red Cell Distribution Width 13.7 % (11.5-14.5) 13.8 % (11.5-14.5) Platelet Count 263 x10^3/uL (140-400) 239 x10^3/uL (140-400) Neutrophils (%) (Auto) 84 % (31-73) 85 % (31-73) Lymphocytes (%) (Auto) 6 % (24-48) 5 % (24-48) Monocytes (%) (Auto) 9 % (0-9) 10 % (0-9) Eosinophils (%) (Auto) 1 % (0-3) 1 % (0-3) Basophils (%) (Auto) 1 % (0-3) 0 % (0-3) Neutrophils # (Auto) 9.0 x10^3uL (1.8-7.7) 9.3 x10^3uL (1.8-7.7) Lymphocytes # (Auto) 0.7 x10^3/uL (1.0-4.8) 0.6 x10^3/uL (1.0-4.8) Monocytes # (Auto) 1.0 x10^3/uL (0.0-1.1) 1.1 x10^3/uL (0.0-1.1) Eosinophils # (Auto) 0.1 x10^3/uL (0.0-0.7) 0.1 x10^3/uL (0.0-0.7) Basophils # (Auto) 0.1 x10^3/uL (0.0-0.2) 0.0 x10^3/uL (0.0-0.2) Sodium Level 133 mmol/L (136-145) 135 mmol/L (136-145) Potassium Level 2.9 mmol/L (3.5-5.1) 3.4 mmol/L (3.5-5.1) Chloride Level 95 mmol/L (98-107) 97 mmol/L (98-107) Carbon Dioxide Level 31 mmol/L (21-32) 31 mmol/L (21-32) Anion Gap 7 (6-14) 7 (6-14) Blood Urea Nitrogen 12 mg/dL (8-26) 12 mg/dL (8-26) Creatinine 0.7 mg/dL (0.7-1.3) 0.8 mg/dL (0.7-1.3) Estimated GFR (Cockcroft-Gault) 112.5 96.4 Glucose Level 127 mg/dL (70-99) 151 mg/dL (70-99) Calcium Level 8.5 mg/dL (8.5-10.1) 8.7 mg/dL (8.5-10.1) Phosphorus Level 3.5 mg/dL (2.6-4.7) Magnesium Level 1.5 mg/dL (1.8-2.4) Comment Review of Relevant I have reviewed the following items daniella (where applicable) has been applied. Labs Laboratory Tests Test 03/26/18 18:20 03/27/18 05:30 White Blood Count 10.7 x10^3/uL (4.0-11.0) 11.0 x10^3/uL (4.0-11.0) Red Blood Count 2.77 x10^6/uL (4.30-5.70) 2.76 x10^6/uL (4.30-5.70) Hemoglobin 9.8 g/dL (13.0-17.5) 9.3 g/dL (13.0-17.5) Hematocrit 26.6 % (39.0-53.0) 26.6 % (39.0-53.0) Mean Corpuscular Volume 96 fL (79-100) 96 fL (79-100) Mean Corpuscular Hemoglobin 35 pg (25-35) 34 pg (25-35) Mean Corpuscular Hemoglobin Concent 37 g/dL (31-37) 35 g/dL (31-37) Red Cell Distribution Width 13.7 % (11.5-14.5) 13.8 % (11.5-14.5) Platelet Count 263 x10^3/uL (140-400) 239 x10^3/uL (140-400) Neutrophils (%) (Auto) 84 % (31-73) 85 % (31-73) Lymphocytes (%) (Auto) 6 % (24-48) 5 % (24-48) Monocytes (%) (Auto) 9 % (0-9) 10 % (0-9) Eosinophils (%) (Auto) 1 % (0-3) 1 % (0-3) Basophils (%) (Auto) 1 % (0-3) 0 % (0-3) Neutrophils # (Auto) 9.0 x10^3uL (1.8-7.7) 9.3 x10^3uL (1.8-7.7) Lymphocytes # (Auto) 0.7 x10^3/uL (1.0-4.8) 0.6 x10^3/uL (1.0-4.8) Monocytes # (Auto) 1.0 x10^3/uL (0.0-1.1) 1.1 x10^3/uL (0.0-1.1) Eosinophils # (Auto) 0.1 x10^3/uL (0.0-0.7) 0.1 x10^3/uL (0.0-0.7) Basophils # (Auto) 0.1 x10^3/uL (0.0-0.2) 0.0 x10^3/uL (0.0-0.2) Sodium Level 133 mmol/L (136-145) 135 mmol/L (136-145) Potassium Level 2.9 mmol/L (3.5-5.1) 3.4 mmol/L (3.5-5.1) Chloride Level 95 mmol/L (98-107) 97 mmol/L (98-107) Carbon Dioxide Level 31 mmol/L (21-32) 31 mmol/L (21-32) Anion Gap 7 (6-14) 7 (6-14) Blood Urea Nitrogen 12 mg/dL (8-26) 12 mg/dL (8-26) Creatinine 0.7 mg/dL (0.7-1.3) 0.8 mg/dL (0.7-1.3) Estimated GFR (Cockcroft-Gault) 112.5 96.4 Glucose Level 127 mg/dL (70-99) 151 mg/dL (70-99) Calcium Level 8.5 mg/dL (8.5-10.1) 8.7 mg/dL (8.5-10.1) Phosphorus Level 3.5 mg/dL (2.6-4.7) Magnesium Level 1.5 mg/dL (1.8-2.4) Laboratory Tests Test 10/30/18 18:20 03/27/18 05:30 White Blood Count 10.7 x10^3/uL (4.0-11.0) 11.0 x10^3/uL (4.0-11.0) Red Blood Count 2.77 x10^6/uL (4.30-5.70) 2.76 x10^6/uL (4.30-5.70) Hemoglobin 9.8 g/dL (13.0-17.5) 9.3 g/dL (13.0-17.5) Hematocrit 26.6 % (39.0-53.0) 26.6 % (39.0-53.0) Mean Corpuscular Volume 96 fL (79-100) 96 fL (79-100) Mean Corpuscular Hemoglobin 35 pg (25-35) 34 pg (25-35) Mean Corpuscular Hemoglobin Concent 37 g/dL (31-37) 35 g/dL (31-37) Red Cell Distribution Width 13.7 % (11.5-14.5) 13.8 % (11.5-14.5) Platelet Count 263 x10^3/uL (140-400) 239 x10^3/uL (140-400) Neutrophils (%) (Auto) 84 % (31-73) 85 % (31-73) Lymphocytes (%) (Auto) 6 % (24-48) 5 % (24-48) Monocytes (%) (Auto) 9 % (0-9) 10 % (0-9) Eosinophils (%) (Auto) 1 % (0-3) 1 % (0-3) Basophils (%) (Auto) 1 % (0-3) 0 % (0-3) Neutrophils # (Auto) 9.0 x10^3uL (1.8-7.7) 9.3 x10^3uL (1.8-7.7) Lymphocytes # (Auto) 0.7 x10^3/uL (1.0-4.8) 0.6 x10^3/uL (1.0-4.8) Monocytes # (Auto) 1.0 x10^3/uL (0.0-1.1) 1.1 x10^3/uL (0.0-1.1) Eosinophils # (Auto) 0.1 x10^3/uL (0.0-0.7) 0.1 x10^3/uL (0.0-0.7) Basophils # (Auto) 0.1 x10^3/uL (0.0-0.2) 0.0 x10^3/uL (0.0-0.2) Sodium Level 133 mmol/L (136-145) 135 mmol/L (136-145) Potassium Level 2.9 mmol/L (3.5-5.1) 3.4 mmol/L (3.5-5.1) Chloride Level 95 mmol/L (98-107) 97 mmol/L (98-107) Carbon Dioxide Level 31 mmol/L (21-32) 31 mmol/L (21-32) Anion Gap 7 (6-14) 7 (6-14) Blood Urea Nitrogen 12 mg/dL (8-26) 12 mg/dL (8-26) Creatinine 0.7 mg/dL (0.7-1.3) 0.8 mg/dL (0.7-1.3) Estimated GFR (Cockcroft-Gault) 112.5 96.4 Glucose Level 127 mg/dL (70-99) 151 mg/dL (70-99) Calcium Level 8.5 mg/dL (8.5-10.1) 8.7 mg/dL (8.5-10.1) Phosphorus Level 3.5 mg/dL (2.6-4.7) Magnesium Level 1.5 mg/dL (1.8-2.4) Medications Current Medications Amino Acids/ Glycerin/ Electrolytes 1,000 ml @ 80 mls/hr [id number] IV Last administered on 03/27/18at 05:43; Start 03/26/18 at 16:00 Levofloxacin/ Dextrose 150 ml @ 100 mls/hr Q24H IV Last administered on at 17:51; Start 03/26/18 at 16:00; Stop 03/27/18 at 09:01; Status DC Acetaminophen (Tylenol) 650 mg PRN Q6HRS PRN PO FEVER; Start 03/26/18 at 15:15 Ondansetron HCl (Zofran) 4 mg PRN Q6HRS PRN IV NAUSEA/VOMITING; Start at 15:15 Morphine Sulfate (Morphine Sulfate) 2 mg PRN Q2HR PRN IV MODERATE TO SEVERE PAIN; Start 03/26/18 at 15:15 Tramadol HCl (Ultram) 50 mg PRN Q6HRS PRN PO MILD TO MODERATE PAIN; Start at 15:15 Docusate Sodium (Colace) 100 mg PRN DAILY PRN PO CONSTIPATION; Start 03/26/18 at 15:15 Oxycodone/ Acetaminophen (Percocet 10/325) 1 tab PRN Q6HRS PRN PO SEVERE PAIN; Start 03/26/18 at 15:15 Albuterol Sulfate (Ventolin Neb Soln) 2.5 mg PRN Q4HRS PRN NEB SHORTNESS OF BREATH; Start 03/26/18 at 15:15 Hydromorphone HCl (Dilaudid) 1 mg Q3HRS PRN IV MODERATE PAIN Last administered on 03/27/18at 01:39; Start 03/26/18 at 19:30 Hydromorphone HCl (Dilaudid) 2 mg Q3HRS PRN IV SEVERE PAIN Last administered on 03/27/18at 12:28; Start 03/26/18 at 19:30 Potassium Chloride (Klor-Con) 40 meq 1X ONCE PO Last administered on at 20:51; Start 03/26/18 at 19:30; Stop 03/26/18 at 19:35; Status DC Piperacillin Sod/ Tazobactam Sod 4.5 gm/Sodium Chloride 100 ml @ 200 mls/hr Q6HRS IV Last administered on 03/27/18at 12:28; Start 03/27/18 at 10:00 Linezolid/Dextrose 300 ml @ 300 mls/hr Q12HR IV Last administered on at 12:27; Start 03/27/18 at 10:00 Pantoprazole Sodium (PROTONIX VIAL for IV PUSH) 40 mg DAILYAC IVP ; Start 03/27 at 11:30 Lidocaine HCl (Viscous Lidocaine) 15 ml PRN TID PRN SWSW mouth/throat pain; Start 03/27/18 at 11:30 Lactobacillus Rhamnosus (Culturelle) 1 cap BID PO ; Start 03/27/18 at 12:00 Active Scripts Active Augmentin 875-125 Tablet (Amoxicillin/Potassium Clav) 1 Each Tablet 1 Tab PO BID Polyethylene Glycol 3350 17 Gm Powd.pack 17 Gm PO PRN DAILY PRN Colace (Docusate Sodium) 100 Mg Capsule 100 Mg PO BID Reported Xarelto (Rivaroxaban) 20 Mg Tablet 20 Mg PO DAILYWSUP Zofran (Ondansetron Hcl) 8 Mg Tablet 8 Mg PO BID PRN Morphine Sulfate 15 Mg Tablet 15 Mg PO BID Ambien (Zolpidem Tartrate) 5 Mg Tablet 1 Tab PO QHS PRN Potassium Chloride 20 Meq Tablet.er 20 Meq PO DAILY Metoprolol Tartrate 50 Mg Tablet 25 Mg PO HS Simvastatin 20 Mg Tablet 20 Mg PO HS Percocet 10-325 Mg Tablet (Oxycodone/Acetaminophen) 1 Each Tablet 1 Tab PO PRN Q6HRS PRN Vitals/I & O Vital Sign - Last 24 Hours 03/26/18 03/26/18 03/26/18 03/26/18 14:37 15:00 15:56 19:48 Temp 98.7 100.8 98.7 100.8 Pulse 84 91 Resp 18 18 B/P (MAP) 124/61 (82) 88/54 (65) Pulse Ox 99 96 96 O2 Delivery Room Air Room Air Room Air Room Air 03/26/18 03/26/18 03/26/18 03/27/18 20:00 20:52 23:35 01:39 Temp 99.0 99.0 Pulse 95 Resp 18 B/P (MAP) 83/59 (67) Pulse Ox 95 O2 Delivery Room Air Room Air Room Air Room Air 03/27/18 03/27/18 03/27/18 03/27/18 02:09 03:51 06:03 06:33 Temp 100.4 100.4 Pulse 84 Resp 20 B/P (MAP) 162/66 (98) Pulse Ox 98 98 O2 Delivery Room Air Room Air Room Air Room Air 03/27/18 03/27/18 03/27/18 08:00 09:44 12:28 Temp 97.9 97.9 Pulse 91 Resp 20 18 B/P (MAP) 134/75 (94) Pulse Ox 97 O2 Delivery Room Air Room Air Room Air Intake and Output 03/26/18 03/26/18 03/27/18 15:00 23:00 07:00 Intake Total 50 ml 60 ml Output Total 850 ml Balance 50 ml -790 ml SUSAN GREENE MD Mar 27, 2018 13:22
[2018-03-27] MEDS: LACTOBACILLUS RHAMNOSUS GG 1 CAPSULE. PO SCH ×2 (14:21→21:17)
[2018-03-27] MEDS: PANTOPRAZOLE IV PUSH 40 MG VIAL. IVP SCH (14:23)
[2018-03-27 15:08] VITALS: BP 100/53
--- NOTE | 2018-03-27 15:32 | RAD ---
CT SOFT TISSUE NECK WO CONTRST Indication: Foul-smelling drainage, parotid cancer Technique: Noncontrast CT imaging was performed of the neck, multiplanar reconstruction images submitted. One or more of the following individualized dose reduction techniques were utilized for this examination: 1. Automated exposure control 2. Adjustment of the mA and/or kV according to patient size 3. Use of iterative reconstruction technique. Comparison: January 07, 2018 Findings: There is again large area of heterogeneous density about expected the left parotid gland extending more superiorly as well as anteriorly to site of left parotidectomy. Overall findings have increased since previous exam, area of heterogeneous density located more lateral to the left zygomatic arch and left the mandible up to about 4.8 cm AP by 3.1 cm transverse by about 8 cm CC, more superiorly contiguous with heterogeneous density extending more posteriorly, this area also larger. For example this measures about 6.5 cm AP by 3 cm on axial images 80 versus previously 4.9 cm AP by 2.5 cm transverse in a similar location on previous exam. There is increased bone destruction of the left zygomatic arch, segmentally now not visualized. There is also increased coalescence of abnormal density of left mastoid air cells with associated bone destruction. There is also new segmental bone erosion of the left temporal calvarium. There are also pockets of gas about the left lateral margin of the left temporomandibular joint, associated degree of bony erosion. Accurate evaluation for intracranial extent is limited without contrast although possible intracranial extent of density in the lateral aspect of the left middle cranial fossa. Right mastoid air cells and paranasal sinuses are aerated. There is degenerative disc disease and spondylosis greatest C3-4 at which there is likely mild spinal stenosis about 8 mm. There is multilevel cervical facet degenerative change as well as uncovertebral degenerative change contributing to neural foramina compromise, more significant narrowing bilaterally at C3-4, on the right at C2-C3, left greater than right at C4-5, on right at C5-6, lesser degree of narrowing at C6-7. IMPRESSION: 1. There is again large area of heterogeneous density about left parotidectomy site extending both anteriorly as well as superiorly. There is also increased bone destruction of the left zygomatic arch, left mastoid air cells, left temporal and left temporal calvarium with possible intracranial extent to the lateral aspect of the left middle cranial fossa. Progression of findings may be due to progression of neoplasm although also consideration of associated infection and osteomyelitis. Electronically signed by: Marcos Morrow MD (03/27/2018 3:30 PM) [id number]
--- NOTE | 2018-03-27 17:55 | CONS ---
DATE OF CONSULTATION: 03/27/2018 REFERRING PHYSICIAN: Dr. 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 HISTORY OF PRESENT ILLNESS: A 67-year-old gentleman diagnosed with a left parotid gland carcinoma in 04/2016, with a recurrence, status post aggressive surgery. The patient underwent left parotidectomy and left modified dissection in 04/2016, subsequent to which he had recurrent disease in 2017 requiring radiation therapy. He had progressive disease, was on chemotherapy and on 02/12/2018, he was started on immunotherapy. The patient has worsening drainage for 1-1/2 months, for which they have been following up with [facility], and has been doing it at home twice a day. He continues to have foul smelling drainage. Yesterday, he was admitted due to weakness and not feeling well after getting one day of Levaquin. The patient also has poor p.o. intake. He has lost 17 pounds in the last couple of weeks. He has a Gao palsy affecting the left eye. He is unable to open his mouth and denies any fevers, chills, nausea, vomiting, diarrhea, abdominal pain, headache, difficulty with vision, rash, though he has a skin cancer affecting the left wrist. 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 SOCIAL HISTORY: Denies smoking, EtOH. Lives with his , . REVIEW OF SYSTEMS: Negative except for above in HPI. CURRENT MEDICATIONS: Levaquin. Other medications reviewed in medication list. ALLERGIES: No known drug allergies. PHYSICAL EXAMINATION: VITAL SIGNS: Temperature 100.4, pulse 84, respiratory rate 20, blood pressure 162/66, oxygen saturation 98% on room air. HEENT: Dressing over the left side of face, foul smelling drainage, swelling. Left Gao palsy changes present chronic, unable to close left eyelid completely due to same. Atraumatic, normocephalic. Pupils equal, reactive. Extraocular movements intact. NECK: Supple. Left-sided swelling present, chronic. LUNGS: Clear bilaterally. CARDIOVASCULAR: S1, S2. ABDOMEN: Soft, nontender. No rebound, no guarding. CENTRAL NERVOUS SYSTEM: Grossly nonfocal. Alert and oriented x 3. DERMATOLOGIC: Left upper extremity lesion from previous skin cancer. No evidence of secondary bacterial infection. Left-sided facial dressing in place with foul smell odor, swelling. The patient did not let me take the dressing down due to pain. He is awaiting wound team to evaluate the patient, see wound care description for full details, which is pending at this time. No generalized rash. PSYCHOLOGICAL: Flat affect. LABORATORY DATA: WBC 11.0, hemoglobin 9.3, hematocrit 26.6, platelets 239. Sodium 135, potassium 3.4, chloride 97, BUN 12, creatinine 0.8, glucose 151, calcium 8.7. Labs pending at this time. Blood cultures ordered. CT neck ordered. CT scan on 02/12/2018 revealed large necrotic parotid mass and internal jugular vein thrombosis and osseous destruction. IMPRESSION: 1. 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 2. Generalized weakness and dehydration. 3. Anemia. 4. Generalized debility. 5. Hypokalemia. 6. History of skin cancer. 7. Immunosuppression, status post chemotherapy. 8. Atrial fibrillation. RECOMMENDATIONS: 1. We will start the patient on empiric Zyvox and Zosyn to cover potential Pseudomonas. 2. Obtain blood cultures. 3. Obtain CT neck soft tissue. 4. Follow up labs and cultures. 5. 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 The patient may need further intervention including surgical, though unable to say the extent of involvement at this time without imaging. 6. Wound care evaluation pending at this time, was discussed with family. 7. Discussed with RN. Thank you for allowing us to participate in this patient's care. If you have any questions, do not hesitate to contact me. XIOMY CALROS MD DR: TAI/edith JOB#: [id number] / [id number]
--- NOTE | 2018-03-27 18:29 | PDOC ---
Provider Note Provider Note 67 yo man with recurrent left parotid squamous cell carcinoma s/p prior resection and salvage radiation. Previous treatment with Cisplat and Opdivo/ ALso has left forearm squamous cell carcinoma. Admitted for dehydration and weakness. Doing better with PPn and IV antibiotics. He has had 2 of ten treatments to left forearm squamous cell carcinoma. Now with less bleeding of this lesion. Sore throat unchanged. Impression: General improvement with current supportive care. Will resume forearm treatment in am (tomorrow is day 3 of 10). HELEN ROSALES MD Mar 27, 2018 18:29
[2018-03-27] MEDS: oxyCODONE/APAP 10/325 1 TAB TABLET PO PRN (19:07)
[2018-03-27 19:43] VITALS: BP 112/63
[2018-03-27 23:50] VITALS: BP 131/62
[2018-03-28] VITALS (7 sets, daily range): BP systolic 88–123; BP diastolic 50–71
[2018-03-28] MEDS: HYDROmorphone 2 MG/ML VIAL IV PRN ×5 (00:11→18:25)
[2018-03-28] MEDS: PIPERACILLIN/TAZOBACTAM 4.5 GM in IV NORMAL SALINE 100ML 100 ML IV SCH ×4 (00:11→18:26)
[2018-03-28] MEDS: AMINO AC 3%/ELECTROLYTE/GLYCER 1,000 ML IV SCH ×2 (06:34→18:25)
[2018-03-28 06:44] LABS: BASO % 1 % (0-3); EOS # 0.1 x10^3/uL (0.0-0.7); EOS % 1 % (0-3); HEMATOCRIT 25.5 % (39.0-53.0); HEMOGLOBIN 9.2 g/dL (13.0-17.5); LYMPH # 0.5 x10^3/uL (1.0-4.8); LYMPH % 5 % (24-48); MEAN CORPUSCULAR HEMOGLOBIN 35 pg (25-35); MEAN CORPUSCULAR HGB CONC 36 g/dL (31-37); MEAN CORPUSCULAR VOLUME 96 fL (79-100); MONO # 0.8 x10^3/uL (0.0-1.1); MONO % 8 % (0-9); NEUT # 8.7 x10^3uL (1.8-7.7); NEUT % 85 % (31-73); PLATELET COUNT 239 x10^3/uL (140-400); RED BLOOD COUNT 2.65 x10^6/uL (4.30-5.70); RED CELL DISTRIBUTION WIDTH 13.7 % (11.5-14.5); WHITE BLOOD COUNT 10.2 x10^3/uL (4.0-11.0)
[2018-03-28 07:00] LABS: ALBUMIN/GLOBULIN RATIO 0.5 (1.0-1.7); CALCIUM 8.7 mg/dL (8.5-10.1); CREATININE 0.7 mg/dL (0.7-1.3); GFR 112.5; POTASSIUM 3.4 mmol/L (3.5-5.1); TOTAL BILIRUBIN 0.3 mg/dL (0.2-1.0)
[2018-03-28] MEDS: PANTOPRAZOLE IV PUSH 40 MG VIAL. IVP SCH (08:39)
[2018-03-28] MEDS: LACTOBACILLUS RHAMNOSUS GG 1 CAPSULE. PO SCH ×2 (10:00→21:34)
[2018-03-28] MEDS: ONDANSETRON PF 4 MG/2 ML VIAL. IV PRN (10:10)
--- NOTE | 2018-03-28 10:16 | PDOC ---
Subjective: Subjective: Still with left facial pain - hurts to swallow. Did manage to eat some eggs this morning. Didn't take lidocaine. No vomiting. Neither pt or offer much. Objective: Vital Signs: Vital Signs Date Time Temp Pulse Resp B/P (MAP) Pulse Ox O2 Delivery O2 Flow Rate FiO2 03/28/18 10:00 94 Room Air 03/28/18 07:20 98.2 95 17 114/56 (75) 98.2 Labs: Laboratory Tests Test 03/28/18 06:15 White Blood Count 10.2 x10^3/uL Red Blood Count 2.65 x10^6/uL Hemoglobin 9.2 g/dL Hematocrit 25.5 % Mean Corpuscular Volume 96 fL Mean Corpuscular Hemoglobin 35 pg Mean Corpuscular Hemoglobin Concent 36 g/dL Red Cell Distribution Width 13.7 % Platelet Count 239 x10^3/uL Neutrophils (%) (Auto) 85 % Lymphocytes (%) (Auto) 5 % Monocytes (%) (Auto) 8 % Eosinophils (%) (Auto) 1 % Basophils (%) (Auto) 1 % Neutrophils # (Auto) 8.7 x10^3uL Lymphocytes # (Auto) 0.5 x10^3/uL Monocytes # (Auto) 0.8 x10^3/uL Eosinophils # (Auto) 0.1 x10^3/uL Basophils # (Auto) 0.0 x10^3/uL Platelet Estimate Pending Sodium Level 135 mmol/L Potassium Level 3.4 mmol/L Chloride Level 96 mmol/L Carbon Dioxide Level 32 mmol/L Anion Gap 7 Blood Urea Nitrogen 11 mg/dL Creatinine 0.7 mg/dL Estimated GFR (Cockcroft-Gault) 112.5 BUN/Creatinine Ratio 16 Glucose Level 150 mg/dL Calcium Level 8.7 mg/dL Total Bilirubin 0.3 mg/dL Aspartate Amino Transf (AST/SGOT) 9 U/L Alanine Aminotransferase (ALT/SGPT) 11 U/L Alkaline Phosphatase 52 U/L Total Protein 6.0 g/dL Albumin 2.0 g/dL Albumin/Globulin Ratio 0.5 Imaging: Soft Tissue Neck CT IMPRESSION: 1. There is again large area of heterogeneous density about left parotidectomy site extending both anteriorly as well as superiorly. There is also increased bone destruction of the left zygomatic arch, left mastoid air cells, left temporal and left temporal calvarium with possible intracranial extent to the lateral aspect of the left middle cranial fossa. Progression of findings may be due to progression of neoplasm although also consideration of associated infection and osteomyelitis. PE: GEN: NAD LUNGS: room air HEART: RRR ABD: S/ND/NT NEURO/PSYCH: A & O 3, flat A/P: Left parotid SCC Left facial pain/infection, painful swallowing Vomiting - resolved -- No more vomiting, able to swallow some, hasn't tried lidocaine - discussed w/ RN , pt, and - RN indicates not given because ordered as PRN, so will change to scheduled dosing before meals. Consider PEG if indicated. ZEB CAMPBELL Mar 28, 2018 10:16
[2018-03-28 10:27] LABS: % BANDS 2 % (0-9); % LYMPHS 3 % (24-48); % MONOS 6 % (0-10); % SEGS 89 % (35-66)
[2018-03-28 10:28] LABS: PLT ESTIMATE ADEQUATE (ADEQUATE)
--- NOTE | 2018-03-28 10:37 | PDOC ---
PROGRESS NOTES History of Present Illness History of Present Illness Assessment/Plan Assessment/Plan generalized weakness. 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 There is also increased bone destruction of the left zygomatic arch, left mastoid air cells, left temporal and left temporal calvarium with possible intracranial extent to the lateral aspect of the left middle cranial fossa. Progression of findings may be due to progression of neoplasm although also consideration of associated infection and osteomyelitis. chronic pain opoids dependence. HTN DNR reactive depression plan: RT, onco following id CONSUlt, wound care consult nutrition consult PPN for now labs CXR pain control dvt ppx PTOT need verify home meds on palliative treatment with Opdivo Vitals Vitals Vital Signs Date Time Temp Pulse Resp B/P (MAP) Pulse Ox O2 Delivery O2 Flow Rate FiO2 03/28/18 10:00 94 Room Air 03/28/18 07:20 98.2 95 17 114/56 (75) 98.2 Physical Exam General: Alert, Oriented X3, No acute distress, moderate distress Heart: Other (irrr rapid) Lungs: Clear Abdomen: Soft Extremities: No cyanosis Labs LABS Laboratory Tests Test 03/28/18 06:15 White Blood Count 10.2 x10^3/uL (4.0-11.0) Red Blood Count 2.65 x10^6/uL (4.30-5.70) Hemoglobin 9.2 g/dL (13.0-17.5) Hematocrit 25.5 % (39.0-53.0) Mean Corpuscular Volume 96 fL (79-100) Mean Corpuscular Hemoglobin 35 pg (25-35) Mean Corpuscular Hemoglobin Concent 36 g/dL (31-37) Red Cell Distribution Width 13.7 % (11.5-14.5) Platelet Count 239 x10^3/uL (140-400) Neutrophils (%) (Auto) 85 % (31-73) Lymphocytes (%) (Auto) 5 % (24-48) Monocytes (%) (Auto) 8 % (0-9) Eosinophils (%) (Auto) 1 % (0-3) Basophils (%) (Auto) 1 % (0-3) Neutrophils # (Auto) 8.7 x10^3uL (1.8-7.7) Lymphocytes # (Auto) 0.5 x10^3/uL (1.0-4.8) Monocytes # (Auto) 0.8 x10^3/uL (0.0-1.1) Eosinophils # (Auto) 0.1 x10^3/uL (0.0-0.7) Basophils # (Auto) 0.0 x10^3/uL (0.0-0.2) Segmented Neutrophils % 89 % (35-66) Band Neutrophils % 2 % (0-9) Lymphocytes % 3 % (24-48) Monocytes % 6 % (0-10) Platelet Estimate Adequate (ADEQUATE) Sodium Level 135 mmol/L (136-145) Potassium Level 3.4 mmol/L (3.5-5.1) Chloride Level 96 mmol/L (98-107) Carbon Dioxide Level 32 mmol/L (21-32) Anion Gap 7 (6-14) Blood Urea Nitrogen 11 mg/dL (8-26) Creatinine 0.7 mg/dL (0.7-1.3) Estimated GFR (Cockcroft-Gault) 112.5 BUN/Creatinine Ratio 16 (6-20) Glucose Level 150 mg/dL (70-99) Calcium Level 8.7 mg/dL (8.5-10.1) Total Bilirubin 0.3 mg/dL (0.2-1.0) Aspartate Amino Transf (AST/SGOT) 9 U/L (15-37) Alanine Aminotransferase (ALT/SGPT) 11 U/L (16-63) Alkaline Phosphatase 52 U/L (46-116) Total Protein 6.0 g/dL (6.4-8.2) Albumin 2.0 g/dL (3.4-5.0) Albumin/Globulin Ratio 0.5 (1.0-1.7) Comment Review of Relevant I have reviewed the following items daniella (where applicable) has been applied. Labs Laboratory Tests Test 03/26/18 18:20 03/27/18 05:30 03/28/18 06:15 White Blood Count 10.7 x10^3/uL (4.0-11.0) 11.0 x10^3/uL (4.0-11.0) 10.2 x10^3/uL (4.0-11.0) Red Blood Count 2.77 x10^6/uL (4.30-5.70) 2.76 x10^6/uL (4.30-5.70) 2.65 x10^6/uL (4.30-5.70) Hemoglobin 9.8 g/dL (13.0-17.5) 9.3 g/dL (13.0-17.5) 9.2 g/dL (13.0-17.5) Hematocrit 26.6 % (39.0-53.0) 26.6 % (39.0-53.0) 25.5 % (39.0-53.0) Mean Corpuscular Volume 96 fL (79-100) 96 fL (79-100) 96 fL (79-100) Mean Corpuscular Hemoglobin 35 pg (25-35) 34 pg (25-35) 35 pg (25-35) Mean Corpuscular Hemoglobin Concent 37 g/dL (31-37) 35 g/dL (31-37) 36 g/dL (31-37) Red Cell Distribution Width 13.7 % (11.5-14.5) 13.8 % (11.5-14.5) 13.7 % (11.5-14.5) Platelet Count 263 x10^3/uL (140-400) 239 x10^3/uL (140-400) 239 x10^3/uL (140-400) Neutrophils (%) (Auto) 84 % (31-73) 85 % (31-73) 85 % (31-73) Lymphocytes (%) (Auto) 6 % (24-48) 5 % (24-48) 5 % (24-48) Monocytes (%) (Auto) 9 % (0-9) 10 % (0-9) 8 % (0-9) Eosinophils (%) (Auto) 1 % (0-3) 1 % (0-3) 1 % (0-3) Basophils (%) (Auto) 1 % (0-3) 0 % (0-3) 1 % (0-3) Neutrophils # (Auto) 9.0 x10^3uL (1.8-7.7) 9.3 x10^3uL (1.8-7.7) 8.7 x10^3uL (1.8-7.7) Lymphocytes # (Auto) 0.7 x10^3/uL (1.0-4.8) 0.6 x10^3/uL (1.0-4.8) 0.5 x10^3/uL (1.0-4.8) Monocytes # (Auto) 1.0 x10^3/uL (0.0-1.1) 1.1 x10^3/uL (0.0-1.1) 0.8 x10^3/uL (0.0-1.1) Eosinophils # (Auto) 0.1 x10^3/uL (0.0-0.7) 0.1 x10^3/uL (0.0-0.7) 0.1 x10^3/uL (0.0-0.7) Basophils # (Auto) 0.1 x10^3/uL (0.0-0.2) 0.0 x10^3/uL (0.0-0.2) 0.0 x10^3/uL (0.0-0.2) Sodium Level 133 mmol/L (136-145) 135 mmol/L (136-145) 135 mmol/L (136-145) Potassium Level 2.9 mmol/L (3.5-5.1) 3.4 mmol/L (3.5-5.1) 3.4 mmol/L (3.5-5.1) Chloride Level 95 mmol/L (98-107) 97 mmol/L (98-107) 96 mmol/L (98-107) Carbon Dioxide Level 31 mmol/L (21-32) 31 mmol/L (21-32) 32 mmol/L (21-32) Anion Gap 7 (6-14) 7 (6-14) 7 (6-14) Blood Urea Nitrogen 12 mg/dL (8-26) 12 mg/dL (8-26) 11 mg/dL (8-26) Creatinine 0.7 mg/dL (0.7-1.3) 0.8 mg/dL (0.7-1.3) 0.7 mg/dL (0.7-1.3) Estimated GFR (Cockcroft-Gault) 112.5 96.4 112.5 Glucose Level 127 mg/dL (70-99) 151 mg/dL (70-99) 150 mg/dL (70-99) Calcium Level 8.5 mg/dL (8.5-10.1) 8.7 mg/dL (8.5-10.1) 8.7 mg/dL (8.5-10.1) Phosphorus Level 3.5 mg/dL (2.6-4.7) Magnesium Level 1.5 mg/dL (1.8-2.4) Segmented Neutrophils % 89 % (35-66) Band Neutrophils % 2 % (0-9) Lymphocytes % 3 % (24-48) Monocytes % 6 % (0-10) Platelet Estimate Adequate (ADEQUATE) BUN/Creatinine Ratio 16 (6-20) Total Bilirubin 0.3 mg/dL (0.2-1.0) Aspartate Amino Transf (AST/SGOT) 9 U/L (15-37) Alanine Aminotransferase (ALT/SGPT) 11 U/L (16-63) Alkaline Phosphatase 52 U/L (46-116) Total Protein 6.0 g/dL (6.4-8.2) Albumin 2.0 g/dL (3.4-5.0) Albumin/Globulin Ratio 0.5 (1.0-1.7) Laboratory Tests Test 03/28/18 06:15 White Blood Count 10.2 x10^3/uL (4.0-11.0) Red Blood Count 2.65 x10^6/uL (4.30-5.70) Hemoglobin 9.2 g/dL (13.0-17.5) Hematocrit 25.5 % (39.0-53.0) Mean Corpuscular Volume 96 fL (79-100) Mean Corpuscular Hemoglobin 35 pg (25-35) Mean Corpuscular Hemoglobin Concent 36 g/dL (31-37) Red Cell Distribution Width 13.7 % (11.5-14.5) Platelet Count 239 x10^3/uL (140-400) Neutrophils (%) (Auto) 85 % (31-73) Lymphocytes (%) (Auto) 5 % (24-48) Monocytes (%) (Auto) 8 % (0-9) Eosinophils (%) (Auto) 1 % (0-3) Basophils (%) (Auto) 1 % (0-3) Neutrophils # (Auto) 8.7 x10^3uL (1.8-7.7) Lymphocytes # (Auto) 0.5 x10^3/uL (1.0-4.8) Monocytes # (Auto) 0.8 x10^3/uL (0.0-1.1) Eosinophils # (Auto) 0.1 x10^3/uL (0.0-0.7) Basophils # (Auto) 0.0 x10^3/uL (0.0-0.2) Segmented Neutrophils % 89 % (35-66) Band Neutrophils % 2 % (0-9) Lymphocytes % 3 % (24-48) Monocytes % 6 % (0-10) Platelet Estimate Adequate (ADEQUATE) Sodium Level 135 mmol/L (136-145) Potassium Level 3.4 mmol/L (3.5-5.1) Chloride Level 96 mmol/L (98-107) Carbon Dioxide Level 32 mmol/L (21-32) Anion Gap 7 (6-14) Blood Urea Nitrogen 11 mg/dL (8-26) Creatinine 0.7 mg/dL (0.7-1.3) Estimated GFR (Cockcroft-Gault) 112.5 BUN/Creatinine Ratio 16 (6-20) Glucose Level 150 mg/dL (70-99) Calcium Level 8.7 mg/dL (8.5-10.1) Total Bilirubin 0.3 mg/dL (0.2-1.0) Aspartate Amino Transf (AST/SGOT) 9 U/L (15-37) Alanine Aminotransferase (ALT/SGPT) 11 U/L (16-63) Alkaline Phosphatase 52 U/L (46-116) Total Protein 6.0 g/dL (6.4-8.2) Albumin 2.0 g/dL (3.4-5.0) Albumin/Globulin Ratio 0.5 (1.0-1.7) Medications Current Medications Amino Acids/ Glycerin/ Electrolytes 1,000 ml @ 80 mls/hr [id number] IV Last administered on 03/28/18at 06:34; Start 03/26/18 at 16:00 Levofloxacin/ Dextrose 150 ml @ 100 mls/hr Q24H IV Last administered on at 17:51; Start 03/26/18 at 16:00; Stop 03/27/18 at 09:01; Status DC Acetaminophen (Tylenol) 650 mg PRN Q6HRS PRN PO FEVER; Start 03/26/18 at 15:15 Ondansetron HCl (Zofran) 4 mg PRN Q6HRS PRN IV NAUSEA/VOMITING Last administered on 03/28/18at 10:10; Start 03/26/18 at 15:15 Morphine Sulfate (Morphine Sulfate) 2 mg PRN Q2HR PRN IV MODERATE TO SEVERE PAIN; Start 03/26/18 at 15:15; Stop 03/27/18 at 16:33; Status DC Tramadol HCl (Ultram) 50 mg PRN Q6HRS PRN PO MILD TO MODERATE PAIN; Start at 15:15 Docusate Sodium (Colace) 100 mg PRN DAILY PRN PO CONSTIPATION; Start 03/26/18 at 15:15 Oxycodone/ Acetaminophen (Percocet 10/325) 1 tab PRN Q6HRS PRN PO SEVERE PAIN Last administered on 03/27/18at 19:07; Start 03/26/18 at 15:15 Albuterol Sulfate (Ventolin Neb Soln) 2.5 mg PRN Q4HRS PRN NEB SHORTNESS OF BREATH; Start 03/26/18 at 15:15 Hydromorphone HCl (Dilaudid) 1 mg Q3HRS PRN IV MODERATE PAIN Last administered on 03/27/18at 01:39; Start 03/26/18 at 19:30; Stop 03/27/18 at 19:30; Status DC Hydromorphone HCl (Dilaudid) 2 mg Q3HRS PRN IV SEVERE PAIN Last administered on 03/27/18at 19:07; Start 03/26/18 at 19:30; Stop 03/27/18 at 19:33; Status DC Potassium Chloride (Klor-Con) 40 meq 1X ONCE PO Last administered on at 20:51; Start 03/26/18 at 19:30; Stop 03/26/18 at 19:35; Status DC Piperacillin Sod/ Tazobactam Sod 4.5 gm/Sodium Chloride 100 ml @ 200 mls/hr Q6HRS IV Last administered on 03/28/18at 06:13; Start 03/27/18 at 10:00 Linezolid/Dextrose 300 ml @ 300 mls/hr Q12HR IV Last administered on at 08:39; Start 03/27/18 at 10:00 Pantoprazole Sodium (PROTONIX VIAL for IV PUSH) 40 mg DAILYAC IVP Last administered on 03/28/18at 08:39; Start 03/27/18 at 11:30 Lidocaine HCl (Viscous Lidocaine) 15 ml PRN TID PRN SWSW mouth/throat pain; Start 03/27/18 at 11:30; Stop 03/28/18 at 10:17; Status DC Lactobacillus Rhamnosus (Culturelle) 1 cap BID PO Last administered on at 10:00; Start 03/27/18 at 12:00 Morphine Sulfate (Morphine Sulfate) 4 mg PRN Q2HR PRN IV MODERATE TO SEVERE PAIN; Start 03/27/18 at 16:45 Hydromorphone HCl (Dilaudid) 2 mg PRN Q3HRS PRN IV MODERATE PAIN; Start at 19:30 Hydromorphone HCl (Dilaudid) 2 mg PRN Q3HRS PRN IV SEVERE PAIN Last administered on 03/28/18at 10:00; Start 03/27/18 at 19:45 Lidocaine HCl (Viscous Lidocaine) 15 ml TIDAC SWSW ; Start 03/28/18 at 11:30 Active Scripts Active Augmentin 875-125 Tablet (Amoxicillin/Potassium Clav) 1 Each Tablet 1 Tab PO BID Polyethylene Glycol 3350 17 Gm Powd.pack 17 Gm PO PRN DAILY PRN Colace (Docusate Sodium) 100 Mg Capsule 100 Mg PO BID Reported Xarelto (Rivaroxaban) 20 Mg Tablet 20 Mg PO DAILYWSUP Zofran (Ondansetron Hcl) 8 Mg Tablet 8 Mg PO BID PRN Morphine Sulfate 15 Mg Tablet 15 Mg PO BID Ambien (Zolpidem Tartrate) 5 Mg Tablet 1 Tab PO QHS PRN Potassium Chloride 20 Meq Tablet.er 20 Meq PO DAILY Metoprolol Tartrate 50 Mg Tablet 25 Mg PO HS Simvastatin 20 Mg Tablet 20 Mg PO HS Percocet 10-325 Mg Tablet (Oxycodone/Acetaminophen) 1 Each Tablet 1 Tab PO PRN Q6HRS PRN Vitals/I & O Vital Sign - Last 24 Hours 10/31/03/27/18 03/27/18 03/27/18 12:28 15:08 15:52 16:41 Temp 97.8 97.8 Pulse 82 Resp 18 17 B/P (MAP) 100/53 (69) Pulse Ox 95 95 95 O2 Delivery Room Air Room Air Room Air Room Air 03/27/18 03/27/18 03/27/18 03/27/18 19:07 19:07 19:43 20:00 Temp 99.9 99.9 Pulse 87 Resp 16 B/P (MAP) 112/63 (79) Pulse Ox 95 O2 Delivery Room Air Room Air Room Air Room Air 03/27/18 03/27/18 03/28/18 03/28/18 20:07 23:50 00:11 00:41 Temp 98.2 98.2 Pulse 88 Resp 18 B/P (MAP) 131/62 (85) Pulse Ox 97 97 O2 Delivery Room Air Room Air Room Air 03/28/18 03/28/18 03/28/18 03/28/18 03:43 06:16 06:46 07:20 Temp 98.4 98.2 98.4 98.2 Pulse 84 95 Resp 18 17 B/P (MAP) 107/68 (81) 114/56 (75) Pulse Ox 96 94 O2 Delivery Room Air Room Air Room Air Room Air 03/28/18 10:00 Pulse Ox 94 O2 Delivery Room Air Intake and Output 03/27/18 03/27/18 03/28/18 15:00 23:00 07:00 Intake Total 50 ml 120 ml Output Total 400 ml 200 ml 850 ml Balance -350 ml -80 ml -850 ml Nutrition Consultation Dietary Evaluation: Recommendations by RD: Increase Calorie Intake, Protein supplementation, PPN/ TPN Comments: diet changed to mech soft due to sore throat from hx vomiting ensure tid continue PPN until po intake improves Expected Outcomes/Goals: to meet > 75% est nutr needs via po intake Interpretation of weight loss: >7.5% in 3 months Malnutrition Findings: Food and Nutrition Intake (Sev: <50% est energy req 5days Weight Status: Appropriate SUSAN GREENE MD Mar 28, 2018 10:37
[2018-03-28] MEDS: LIDOCAINE 2% VISCOUS 15 ML SOLUTION. SWSW SCH ×2 (13:08→16:30)
--- NOTE | 2018-03-28 13:51 | PDOC ---
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 He was started on palliative treatment with Opdivo on 03/14/2018. ROS - no fever Objective Objective Vital Signs Date Time Temp Pulse Resp B/P (MAP) Pulse Ox O2 Delivery O2 Flow Rate FiO2 03/28/18 12:30 95 Room Air 03/28/18 11:13 97.8 75 18 110/65 (80) 97.8 Intake and Output 03/28/18 07:00 Intake Total 170 ml Output Total 1450 ml Balance -1280 ml Intake Oral 170 ml Output Urine Total 1450 ml Physical Exam Heart: Normal S1, Normal S2 General: Alert, Oriented X3 Lungs: Clear to auscultation Neuro: Normal speech Psych/Mental Status: Mental status NL Assessment Assessment IMPRESSION AND PLAN: 1. 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 He was started on palliative treatment with Opdivo on 03/14/2018. He is due for cycle #2 on 03/28/2018. I will defer cycle 2 because of worsening weakness, and declining functional status. I have advised him to follow up with Dr. Gaona next week to continue treatment. 2. Generalized weakness. Continue supportive care. PPN ongoing. 3. Left facial wound. Consult wound management. I d/w Dr Campos, agree with broad spectrum abx coverage. 4. ALso has left forearm squamous cell carcinoma. He has had 2 of ten treatments to left forearm squamous cell carcinoma. Now with less bleeding of this lesion. Agree to resume forearm treatment (day 3 of 10). I d/w Dr Jeronimo Comment Review of Relevant I have reviewed the following items daniella (where applicable) has been applied. Labs Laboratory Tests Test 03/26/18 18:20 03/27/18 05:30 03/28/18 06:15 White Blood Count 10.7 x10^3/uL (4.0-11.0) 11.0 x10^3/uL (4.0-11.0) 10.2 x10^3/uL (4.0-11.0) Red Blood Count 2.77 x10^6/uL (4.30-5.70) 2.76 x10^6/uL (4.30-5.70) 2.65 x10^6/uL (4.30-5.70) Hemoglobin 9.8 g/dL (13.0-17.5) 9.3 g/dL (13.0-17.5) 9.2 g/dL (13.0-17.5) Hematocrit 26.6 % (39.0-53.0) 26.6 % (39.0-53.0) 25.5 % (39.0-53.0) Mean Corpuscular Volume 96 fL (79-100) 96 fL (79-100) 96 fL (79-100) Mean Corpuscular Hemoglobin 35 pg (25-35) 34 pg (25-35) 35 pg (25-35) Mean Corpuscular Hemoglobin Concent 37 g/dL (31-37) 35 g/dL (31-37) 36 g/dL (31-37) Red Cell Distribution Width 13.7 % (11.5-14.5) 13.8 % (11.5-14.5) 13.7 % (11.5-14.5) Platelet Count 263 x10^3/uL (140-400) 239 x10^3/uL (140-400) 239 x10^3/uL (140-400) Neutrophils (%) (Auto) 84 % (31-73) 85 % (31-73) 85 % (31-73) Lymphocytes (%) (Auto) 6 % (24-48) 5 % (24-48) 5 % (24-48) Monocytes (%) (Auto) 9 % (0-9) 10 % (0-9) 8 % (0-9) Eosinophils (%) (Auto) 1 % (0-3) 1 % (0-3) 1 % (0-3) Basophils (%) (Auto) 1 % (0-3) 0 % (0-3) 1 % (0-3) Neutrophils # (Auto) 9.0 x10^3uL (1.8-7.7) 9.3 x10^3uL (1.8-7.7) 8.7 x10^3uL (1.8-7.7) Lymphocytes # (Auto) 0.7 x10^3/uL (1.0-4.8) 0.6 x10^3/uL (1.0-4.8) 0.5 x10^3/uL (1.0-4.8) Monocytes # (Auto) 1.0 x10^3/uL (0.0-1.1) 1.1 x10^3/uL (0.0-1.1) 0.8 x10^3/uL (0.0-1.1) Eosinophils # (Auto) 0.1 x10^3/uL (0.0-0.7) 0.1 x10^3/uL (0.0-0.7) 0.1 x10^3/uL (0.0-0.7) Basophils # (Auto) 0.1 x10^3/uL (0.0-0.2) 0.0 x10^3/uL (0.0-0.2) 0.0 x10^3/uL (0.0-0.2) Sodium Level 133 mmol/L (136-145) 135 mmol/L (136-145) 135 mmol/L (136-145) Potassium Level 2.9 mmol/L (3.5-5.1) 3.4 mmol/L (3.5-5.1) 3.4 mmol/L (3.5-5.1) Chloride Level 95 mmol/L (98-107) 97 mmol/L (98-107) 96 mmol/L (98-107) Carbon Dioxide Level 31 mmol/L (21-32) 31 mmol/L (21-32) 32 mmol/L (21-32) Anion Gap 7 (6-14) 7 (6-14) 7 (6-14) Blood Urea Nitrogen 12 mg/dL (8-26) 12 mg/dL (8-26) 11 mg/dL (8-26) Creatinine 0.7 mg/dL (0.7-1.3) 0.8 mg/dL (0.7-1.3) 0.7 mg/dL (0.7-1.3) Estimated GFR (Cockcroft-Gault) 112.5 96.4 112.5 Glucose Level 127 mg/dL (70-99) 151 mg/dL (70-99) 150 mg/dL (70-99) Calcium Level 8.5 mg/dL (8.5-10.1) 8.7 mg/dL (8.5-10.1) 8.7 mg/dL (8.5-10.1) Phosphorus Level 3.5 mg/dL (2.6-4.7) Magnesium Level 1.5 mg/dL (1.8-2.4) Segmented Neutrophils % 89 % (35-66) Band Neutrophils % 2 % (0-9) Lymphocytes % 3 % (24-48) Monocytes % 6 % (0-10) Platelet Estimate Adequate (ADEQUATE) BUN/Creatinine Ratio 16 (6-20) Total Bilirubin 0.3 mg/dL (0.2-1.0) Aspartate Amino Transf (AST/SGOT) 9 U/L (15-37) Alanine Aminotransferase (ALT/SGPT) 11 U/L (16-63) Alkaline Phosphatase 52 U/L (46-116) Total Protein 6.0 g/dL (6.4-8.2) Albumin 2.0 g/dL (3.4-5.0) Albumin/Globulin Ratio 0.5 (1.0-1.7) Laboratory Tests Test 03/28/18 06:15 White Blood Count 10.2 x10^3/uL (4.0-11.0) Red Blood Count 2.65 x10^6/uL (4.30-5.70) Hemoglobin 9.2 g/dL (13.0-17.5) Hematocrit 25.5 % (39.0-53.0) Mean Corpuscular Volume 96 fL (79-100) Mean Corpuscular Hemoglobin 35 pg (25-35) Mean Corpuscular Hemoglobin Concent 36 g/dL (31-37) Red Cell Distribution Width 13.7 % (11.5-14.5) Platelet Count 239 x10^3/uL (140-400) Neutrophils (%) (Auto) 85 % (31-73) Lymphocytes (%) (Auto) 5 % (24-48) Monocytes (%) (Auto) 8 % (0-9) Eosinophils (%) (Auto) 1 % (0-3) Basophils (%) (Auto) 1 % (0-3) Neutrophils # (Auto) 8.7 x10^3uL (1.8-7.7) Lymphocytes # (Auto) 0.5 x10^3/uL (1.0-4.8) Monocytes # (Auto) 0.8 x10^3/uL (0.0-1.1) Eosinophils # (Auto) 0.1 x10^3/uL (0.0-0.7) Basophils # (Auto) 0.0 x10^3/uL (0.0-0.2) Segmented Neutrophils % 89 % (35-66) Band Neutrophils % 2 % (0-9) Lymphocytes % 3 % (24-48) Monocytes % 6 % (0-10) Platelet Estimate Adequate (ADEQUATE) Sodium Level 135 mmol/L (136-145) Potassium Level 3.4 mmol/L (3.5-5.1) Chloride Level 96 mmol/L (98-107) Carbon Dioxide Level 32 mmol/L (21-32) Anion Gap 7 (6-14) Blood Urea Nitrogen 11 mg/dL (8-26) Creatinine 0.7 mg/dL (0.7-1.3) Estimated GFR (Cockcroft-Gault) 112.5 BUN/Creatinine Ratio 16 (6-20) Glucose Level 150 mg/dL (70-99) Calcium Level 8.7 mg/dL (8.5-10.1) Total Bilirubin 0.3 mg/dL (0.2-1.0) Aspartate Amino Transf (AST/SGOT) 9 U/L (15-37) Alanine Aminotransferase (ALT/SGPT) 11 U/L (16-63) Alkaline Phosphatase 52 U/L (46-116) Total Protein 6.0 g/dL (6.4-8.2) Albumin 2.0 g/dL (3.4-5.0) Albumin/Globulin Ratio 0.5 (1.0-1.7) Microbiology 03/27/18 Blood Culture - Preliminary, Resulted NO GROWTH AFTER 1 DAY Medications Current Medications Amino Acids/ Glycerin/ Electrolytes 1,000 ml @ 80 mls/hr [id number] IV Last administered on 03/28/18at 06:34; Start 03/26/18 at 16:00 Levofloxacin/ Dextrose 150 ml @ 100 mls/hr Q24H IV Last administered on at 17:51; Start 03/26/18 at 16:00; Stop 03/27/18 at 09:01; Status DC Acetaminophen (Tylenol) 650 mg PRN Q6HRS PRN PO FEVER; Start 03/26/18 at 15:15 Ondansetron HCl (Zofran) 4 mg PRN Q6HRS PRN IV NAUSEA/VOMITING Last administered on 03/28/18at 10:10; Start 03/26/18 at 15:15 Morphine Sulfate (Morphine Sulfate) 2 mg PRN Q2HR PRN IV MODERATE TO SEVERE PAIN; Start 03/26/18 at 15:15; Stop 03/27/18 at 16:33; Status DC Tramadol HCl (Ultram) 50 mg PRN Q6HRS PRN PO MILD TO MODERATE PAIN; Start at 15:15 Docusate Sodium (Colace) 100 mg PRN DAILY PRN PO CONSTIPATION; Start 03/26/18 at 15:15 Oxycodone/ Acetaminophen (Percocet 10/325) 1 tab PRN Q6HRS PRN PO SEVERE PAIN Last administered on 03/27/18at 19:07; Start 03/26/18 at 15:15 Albuterol Sulfate (Ventolin Neb Soln) 2.5 mg PRN Q4HRS PRN NEB SHORTNESS OF BREATH; Start 03/26/18 at 15:15 Hydromorphone HCl (Dilaudid) 1 mg Q3HRS PRN IV MODERATE PAIN Last administered on 03/27/18at 01:39; Start 03/26/18 at 19:30; Stop 03/27/18 at 19:30; Status DC Hydromorphone HCl (Dilaudid) 2 mg Q3HRS PRN IV SEVERE PAIN Last administered on 03/27/18at 19:07; Start 03/26/18 at 19:30; Stop 03/27/18 at 19:33; Status DC Potassium Chloride (Klor-Con) 40 meq 1X ONCE PO Last administered on at 20:51; Start 03/26/18 at 19:30; Stop 03/26/18 at 19:35; Status DC Piperacillin Sod/ Tazobactam Sod 4.5 gm/Sodium Chloride 100 ml @ 200 mls/hr Q6HRS IV Last administered on 03/28/18at 12:30; Start 03/27/18 at 10:00 Linezolid/Dextrose 300 ml @ 300 mls/hr Q12HR IV Last administered on at 08:39; Start 03/27/18 at 10:00 Pantoprazole Sodium (PROTONIX VIAL for IV PUSH) 40 mg DAILYAC IVP Last administered on 03/28/18at 08:39; Start 03/27/18 at 11:30 Lidocaine HCl (Viscous Lidocaine) 15 ml PRN TID PRN SWSW mouth/throat pain; Start 03/27/18 at 11:30; Stop 03/28/18 at 10:17; Status DC Lactobacillus Rhamnosus (Culturelle) 1 cap BID PO Last administered on at 10:00; Start 03/27/18 at 12:00 Morphine Sulfate (Morphine Sulfate) 4 mg PRN Q2HR PRN IV MODERATE TO SEVERE PAIN; Start 03/27/18 at 16:45 Hydromorphone HCl (Dilaudid) 2 mg PRN Q3HRS PRN IV MODERATE PAIN; Start at 19:30 Hydromorphone HCl (Dilaudid) 2 mg PRN Q3HRS PRN IV SEVERE PAIN Last administered on 03/28/18at 10:00; Start 03/27/18 at 19:45 Lidocaine HCl (Viscous Lidocaine) 15 ml TIDAC SWSW Last administered on at 13:08; Start 03/28/18 at 11:30 Active Scripts Active Augmentin 875-125 Tablet (Amoxicillin/Potassium Clav) 1 Each Tablet 1 Tab PO BID Polyethylene Glycol 3350 17 Gm Powd.pack 17 Gm PO PRN DAILY PRN Colace (Docusate Sodium) 100 Mg Capsule 100 Mg PO BID Reported Xarelto (Rivaroxaban) 20 Mg Tablet 20 Mg PO DAILYWSUP Zofran (Ondansetron Hcl) 8 Mg Tablet 8 Mg PO BID PRN Morphine Sulfate 15 Mg Tablet 15 Mg PO BID Ambien (Zolpidem Tartrate) 5 Mg Tablet 1 Tab PO QHS PRN Potassium Chloride 20 Meq Tablet.er 20 Meq PO DAILY Metoprolol Tartrate 50 Mg Tablet 25 Mg PO HS Simvastatin 20 Mg Tablet 20 Mg PO HS Percocet 10-325 Mg Tablet (Oxycodone/Acetaminophen) 1 Each Tablet 1 Tab PO PRN Q6HRS PRN Vitals/I & O Vital Sign - Last 24 Hours 03/27/18 03/27/18 03/27/18 03/27/18 15:08 15:52 16:41 19:07 Temp 97.8 97.8 Pulse 82 Resp 17 B/P (MAP) 100/53 (69) Pulse Ox 95 95 95 O2 Delivery Room Air Room Air Room Air Room Air 03/27/18 03/27/18 03/27/18 03/27/18 19:07 19:43 20:00 20:07 Temp 99.9 99.9 Pulse 87 Resp 16 B/P (MAP) 112/63 (79) Pulse Ox 95 O2 Delivery Room Air Room Air Room Air Room Air 03/27/18 03/28/18 03/28/18 03/28/18 23:50 00:11 03:43 06:16 Temp 98.2 98.4 98.2 98.4 Pulse 88 84 Resp 18 18 B/P (MAP) 131/62 (85) 107/68 (81) Pulse Ox 97 96 O2 Delivery Room Air Room Air Room Air Room Air 03/28/18 03/28/18 03/28/18 03/28/18 07:20 08:00 10:00 11:13 Temp 98.2 97.8 98.2 97.8 Pulse 95 75 Resp 17 18 B/P (MAP) 114/56 (75) 110/65 (80) Pulse Ox 94 94 95 O2 Delivery Room Air Room Air Room Air Room Air 03/28/18 12:30 Pulse Ox 95 O2 Delivery Room Air Intake and Output 03/27/18 03/27/18 03/28/18 15:00 23:00 07:00 Intake Total 50 ml 120 ml Output Total 400 ml 200 ml 850 ml Balance -350 ml -80 ml -850 ml Nutrition Consultation Dietary Evaluation: Recommendations by RD: Increase Calorie Intake, Protein supplementation, PPN/ TPN Comments: diet changed to mech soft due to sore throat from hx vomiting ensure tid continue PPN until po intake improves Expected Outcomes/Goals: to meet > 75% est nutr needs via po intake Interpretation of weight loss: >7.5% in 3 months Malnutrition Findings: Food and Nutrition Intake (Sev: <50% est energy req 5days Weight Status: Appropriate LYNDSEY WELCH MD Mar 28, 2018 13:51
[2018-03-28] MEDS: oxyCODONE/APAP 10/325 1 TAB TABLET PO PRN (15:23)
--- NOTE | 2018-03-28 17:35 | PDOC ---
Infectious Disease Note Subjective Subjective Pain so-so No fevers last 24 hours ROS ROS per HPI otherwise neg Vital Sign Vital Signs Vital Signs Date Time Temp Pulse Resp B/P (MAP) Pulse Ox O2 Delivery O2 Flow Rate FiO2 03/28/18 16:56 95 Room Air 03/28/18 15:23 97.9 103 17 123/63 (83) 97.9 Physical Exam PHYSICAL EXAM GENERAL: Propped up in bed, NAD HEENT: Dressing over the left side of face. Left Gao palsy changes present chronic, unable to close left eyelid completely due to same. Not able to open mouth fully LUNGS: Clear bilaterally. CARDIOVASCULAR: S1, S2. ABDOMEN: Soft, nontender. No rebound, no guarding. GEM TECHNICIAN: Sleepy, responds appropriately SKIN: without rash Labs Lab Laboratory Tests Test 03/28/18 06:15 White Blood Count 10.2 x10^3/uL (4.0-11.0) Red Blood Count 2.65 x10^6/uL (4.30-5.70) Hemoglobin 9.2 g/dL (13.0-17.5) Hematocrit 25.5 % (39.0-53.0) Mean Corpuscular Volume 96 fL (79-100) Mean Corpuscular Hemoglobin 35 pg (25-35) Mean Corpuscular Hemoglobin Concent 36 g/dL (31-37) Red Cell Distribution Width 13.7 % (11.5-14.5) Platelet Count 239 x10^3/uL (140-400) Neutrophils (%) (Auto) 85 % (31-73) Lymphocytes (%) (Auto) 5 % (24-48) Monocytes (%) (Auto) 8 % (0-9) Eosinophils (%) (Auto) 1 % (0-3) Basophils (%) (Auto) 1 % (0-3) Neutrophils # (Auto) 8.7 x10^3uL (1.8-7.7) Lymphocytes # (Auto) 0.5 x10^3/uL (1.0-4.8) Monocytes # (Auto) 0.8 x10^3/uL (0.0-1.1) Eosinophils # (Auto) 0.1 x10^3/uL (0.0-0.7) Basophils # (Auto) 0.0 x10^3/uL (0.0-0.2) Segmented Neutrophils % 89 % (35-66) Band Neutrophils % 2 % (0-9) Lymphocytes % 3 % (24-48) Monocytes % 6 % (0-10) Platelet Estimate Adequate (ADEQUATE) Sodium Level 135 mmol/L (136-145) Potassium Level 3.4 mmol/L (3.5-5.1) Chloride Level 96 mmol/L (98-107) Carbon Dioxide Level 32 mmol/L (21-32) Anion Gap 7 (6-14) Blood Urea Nitrogen 11 mg/dL (8-26) Creatinine 0.7 mg/dL (0.7-1.3) Estimated GFR (Cockcroft-Gault) 112.5 BUN/Creatinine Ratio 16 (6-20) Glucose Level 150 mg/dL (70-99) Calcium Level 8.7 mg/dL (8.5-10.1) Total Bilirubin 0.3 mg/dL (0.2-1.0) Aspartate Amino Transf (AST/SGOT) 9 U/L (15-37) Alanine Aminotransferase (ALT/SGPT) 11 U/L (16-63) Alkaline Phosphatase 52 U/L (46-116) Total Protein 6.0 g/dL (6.4-8.2) Albumin 2.0 g/dL (3.4-5.0) Albumin/Globulin Ratio 0.5 (1.0-1.7) Micro Microbiology 03/27/18 Blood Culture - Preliminary, Resulted NO GROWTH AFTER 1 DAY Objective Assessment Large left necrotic wound draining foul smelling drainage with underlying history of 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 Admitted for dehydration and weakness. Generalized weakness and dehydration. Anemia. Generalized debility. Hypokalemia. History of skin cancer. Immunosuppression, status post chemotherapy. Atrial fibrillation. Plan Plan of Care Continue Zyvox an Zosyn Probiotics D/w Attending Co-Sign Attending Co-Sign The patient was seen and interviewed as well as examined at the bedside. The chart was reviewed. The case was discussed. Agree with the plan of care. POLO BAH APRN Mar 28, 2018 17:35 ZENON COOK MD Mar 28, 2018 17:48
[2018-03-29] MEDS: PIPERACILLIN/TAZOBACTAM 4.5 GM in IV NORMAL SALINE 100ML 100 ML IV SCH ×3 (00:12→12:06)
[2018-03-29] MEDS: oxyCODONE/APAP 10/325 1 TAB TABLET PO PRN ×2 (00:13→08:36)
[2018-03-29 03:35] VITALS: BP 126/68
[2018-03-29] MEDS: HYDROmorphone 2 MG/ML VIAL IV PRN ×3 (04:51→20:41)
[2018-03-29] MEDS: AMINO AC 3%/ELECTROLYTE/GLYCER 1,000 ML IV SCH ×2 (06:22→20:42)
--- NOTE | 2018-03-29 06:35 | EKG ---
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
[2018-03-29 07:00] VITALS: BP 113/62
[2018-03-29] MEDS: LACTOBACILLUS RHAMNOSUS GG 1 CAPSULE. PO SCH (08:15)
[2018-03-29] MEDS: LIDOCAINE 2% VISCOUS 15 ML SOLUTION. SWSW SCH ×3 (08:35→15:49)
[2018-03-29] MEDS: PANTOPRAZOLE IV PUSH 40 MG VIAL. IVP SCH (08:36)
--- NOTE | 2018-03-29 10:19 | PDOC ---
Infectious Disease Note Subjective Subjective Rating pain level a 3. Feeling more rested No fevers/chills/N/V/D ROS ROS per HPI otherwise neg Vital Sign Vital Signs Vital Signs Date Time Temp Pulse Resp B/P (MAP) Pulse Ox O2 Delivery O2 Flow Rate FiO2 03/29/18 09:29 Room Air 03/29/18 07:00 97.7 86 16 113/62 (79) 94 97.7 Physical Exam PHYSICAL EXAM GENERAL: Propped up in bed, NAD HEENT: Dressing over the left side of face. Left Gao palsy changes present chronic, unable to close left eyelid completely due to same. Not able to open mouth fully LUNGS: Clear bilaterally. CARDIOVASCULAR: S1, S2. ABDOMEN: Soft, nontender. SERVICE ORDER DISPATCHER: More alert and engaging SKIN: without rash. 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 Undergoing radiation Generalized weakness and dehydration on admission Anemia. Generalized debility. Hypokalemia. History of skin cancer. Immunosuppression, status post chemotherapy. Atrial fibrillation. Plan Plan of Care Continue Zyvox but po and change Zosyn to Augmentin Probiotics D/w Attending Co-Sign Attending Co-Sign The patient was seen and interviewed as well as examined at the bedside. The chart was reviewed. The case was discussed. Agree with the plan of care. POLO BAH APRN Mar 29, 2018 10:19 ZENON COOK MD Mar 29, 2018 15:12
--- NOTE | 2018-03-29 10:38 | PDOC ---
PROGRESS NOTES History of Present Illness History of Present Illness Assessment/Plan Assessment/Plan generalized weakness. 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 There is also increased bone destruction of the left zygomatic arch, left mastoid air cells, left temporal and left temporal calvarium with possible intracranial extent to the lateral aspect of the left middle cranial fossa. Progression of findings may be due to progression of neoplasm although also consideration of associated infection and osteomyelitis. chronic pain opoid dependence. HTN DNR reactive depression plan: iv zyvox, zosyn RT, onco following id FOLLOWING wound care following nutrition consult PPN , adat labs CXR pain control dvt ppx PTOT need verify home meds on palliative treatment with Opdivo CONSULT PALLIATIVE CARE for nursing home goals Vitals Vitals Vital Signs Date Time Temp Pulse Resp B/P (MAP) Pulse Ox O2 Delivery O2 Flow Rate FiO2 03/29/18 09:29 Room Air 03/29/18 07:00 97.7 86 16 113/62 (79) 94 97.7 Physical Exam Physical Exam GENERAL: Propped up in bed, NAD HEENT: Dressing over the left side of face. Left Gao palsy changes present chronic, unable to close left eyelid completely due to same. Not able to open mouth fully LUNGS: Clear bilaterally. CARDIOVASCULAR: S1, S2. ABDOMEN: Soft, nontender. [employer]: More alert and engaging SKIN: without rash. Left arm dressing dry/intact Port - wo signs of complications General: Alert, Oriented X3, Cooperative Heart: Other (irrr rapid) Lungs: Clear Abdomen: Soft Extremities: No clubbing, No cyanosis Comment Review of Relevant I have reviewed the following items daniella (where applicable) has been applied. Labs Laboratory Tests Test 03/28/18 06:15 White Blood Count 10.2 x10^3/uL (4.0-11.0) Red Blood Count 2.65 x10^6/uL (4.30-5.70) Hemoglobin 9.2 g/dL (13.0-17.5) Hematocrit 25.5 % (39.0-53.0) Mean Corpuscular Volume 96 fL (79-100) Mean Corpuscular Hemoglobin 35 pg (25-35) Mean Corpuscular Hemoglobin Concent 36 g/dL (31-37) Red Cell Distribution Width 13.7 % (11.5-14.5) Platelet Count 239 x10^3/uL (140-400) Neutrophils (%) (Auto) 85 % (31-73) Lymphocytes (%) (Auto) 5 % (24-48) Monocytes (%) (Auto) 8 % (0-9) Eosinophils (%) (Auto) 1 % (0-3) Basophils (%) (Auto) 1 % (0-3) Neutrophils # (Auto) 8.7 x10^3uL (1.8-7.7) Lymphocytes # (Auto) 0.5 x10^3/uL (1.0-4.8) Monocytes # (Auto) 0.8 x10^3/uL (0.0-1.1) Eosinophils # (Auto) 0.1 x10^3/uL (0.0-0.7) Basophils # (Auto) 0.0 x10^3/uL (0.0-0.2) Segmented Neutrophils % 89 % (35-66) Band Neutrophils % 2 % (0-9) Lymphocytes % 3 % (24-48) Monocytes % 6 % (0-10) Platelet Estimate Adequate (ADEQUATE) Sodium Level 135 mmol/L (136-145) Potassium Level 3.4 mmol/L (3.5-5.1) Chloride Level 96 mmol/L (98-107) Carbon Dioxide Level 32 mmol/L (21-32) Anion Gap 7 (6-14) Blood Urea Nitrogen 11 mg/dL (8-26) Creatinine 0.7 mg/dL (0.7-1.3) Estimated GFR (Cockcroft-Gault) 112.5 BUN/Creatinine Ratio 16 (6-20) Glucose Level 150 mg/dL (70-99) Calcium Level 8.7 mg/dL (8.5-10.1) Total Bilirubin 0.3 mg/dL (0.2-1.0) Aspartate Amino Transf (AST/SGOT) 9 U/L (15-37) Alanine Aminotransferase (ALT/SGPT) 11 U/L (16-63) Alkaline Phosphatase 52 U/L (46-116) Total Protein 6.0 g/dL (6.4-8.2) Albumin 2.0 g/dL (3.4-5.0) Albumin/Globulin Ratio 0.5 (1.0-1.7) Microbiology 03/27/18 Blood Culture - Preliminary, Resulted NO GROWTH AFTER 1 DAY Medications Current Medications Amino Acids/ Glycerin/ Electrolytes 1,000 ml @ 80 mls/hr [id number] IV Last administered on 03/29/18at 06:22; Start 03/26/18 at 16:00 Levofloxacin/ Dextrose 150 ml @ 100 mls/hr Q24H IV Last administered on at 17:51; Start 03/26/18 at 16:00; Stop 03/27/18 at 09:01; Status DC Acetaminophen (Tylenol) 650 mg PRN Q6HRS PRN PO FEVER; Start 03/26/18 at 15:15 Ondansetron HCl (Zofran) 4 mg PRN Q6HRS PRN IV NAUSEA/VOMITING Last administered on 03/28/18at 10:10; Start 03/26/18 at 15:15 Morphine Sulfate (Morphine Sulfate) 2 mg PRN Q2HR PRN IV MODERATE TO SEVERE PAIN; Start 03/26/18 at 15:15; Stop 03/27/18 at 16:33; Status DC Tramadol HCl (Ultram) 50 mg PRN Q6HRS PRN PO MILD TO MODERATE PAIN; Start at 15:15 Docusate Sodium (Colace) 100 mg PRN DAILY PRN PO CONSTIPATION; Start 03/26/18 at 15:15 Oxycodone/ Acetaminophen (Percocet 10/325) 1 tab PRN Q6HRS PRN PO SEVERE PAIN Last administered on 03/29/18at 08:36; Start 03/26/18 at 15:15 Albuterol Sulfate (Ventolin Neb Soln) 2.5 mg PRN Q4HRS PRN NEB SHORTNESS OF BREATH; Start 03/26/18 at 15:15 Hydromorphone HCl (Dilaudid) 1 mg Q3HRS PRN IV MODERATE PAIN Last administered on 03/27/18at 01:39; Start 03/26/18 at 19:30; Stop 03/27/18 at 19:30; Status DC Hydromorphone HCl (Dilaudid) 2 mg Q3HRS PRN IV SEVERE PAIN Last administered on 03/27/18at 19:07; Start 03/26/18 at 19:30; Stop 03/27/18 at 19:33; Status DC Potassium Chloride (Klor-Con) 40 meq 1X ONCE PO Last administered on at 20:51; Start 03/26/18 at 19:30; Stop 03/26/18 at 19:35; Status DC Piperacillin Sod/ Tazobactam Sod 4.5 gm/Sodium Chloride 100 ml @ 200 mls/hr Q6HRS IV Last administered on 03/29/18at 06:22; Start 03/27/18 at 10:00 Linezolid/Dextrose 300 ml @ 300 mls/hr Q12HR IV Last administered on at 08:37; Start 03/27/18 at 10:00 Pantoprazole Sodium (PROTONIX VIAL for IV PUSH) 40 mg DAILYAC IVP Last administered on 03/29/18at 08:36; Start 03/27/18 at 11:30 Lidocaine HCl (Viscous Lidocaine) 15 ml PRN TID PRN SWSW mouth/throat pain; Start 03/27/18 at 11:30; Stop 03/28/18 at 10:17; Status DC Lactobacillus Rhamnosus (Culturelle) 1 cap BID PO Last administered on at 21:34; Start 03/27/18 at 12:00 Morphine Sulfate (Morphine Sulfate) 4 mg PRN Q2HR PRN IV MODERATE TO SEVERE PAIN; Start 03/27/18 at 16:45 Hydromorphone HCl (Dilaudid) 2 mg PRN Q3HRS PRN IV MODERATE PAIN Last administered on 03/29/18at 04:51; Start 03/27/18 at 19:30 Hydromorphone HCl (Dilaudid) 2 mg PRN Q3HRS PRN IV SEVERE PAIN Last administered on 03/28/18at 15:24; Start 03/27/18 at 19:45 Lidocaine HCl (Viscous Lidocaine) 15 ml TIDAC SWSW Last administered on at 08:35; Start 03/28/18 at 11:30 Active Scripts Active Augmentin 875-125 Tablet (Amoxicillin/Potassium Clav) 1 Each Tablet 1 Tab PO BID Polyethylene Glycol 3350 17 Gm Powd.pack 17 Gm PO PRN DAILY PRN Colace (Docusate Sodium) 100 Mg Capsule 100 Mg PO BID Reported Xarelto (Rivaroxaban) 20 Mg Tablet 20 Mg PO DAILYWSUP Zofran (Ondansetron Hcl) 8 Mg Tablet 8 Mg PO BID PRN Morphine Sulfate 15 Mg Tablet 15 Mg PO BID Ambien (Zolpidem Tartrate) 5 Mg Tablet 1 Tab PO QHS PRN Potassium Chloride 20 Meq Tablet.er 20 Meq PO DAILY Metoprolol Tartrate 50 Mg Tablet 25 Mg PO HS Simvastatin 20 Mg Tablet 20 Mg PO HS Percocet 10-325 Mg Tablet (Oxycodone/Acetaminophen) 1 Each Tablet 1 Tab PO PRN Q6HRS PRN Vitals/I & O Vital Sign - Last 24 Hours 03/28/18 03/28/18 03/28/18 03/28/18 11:13 15:23 15:23 15:24 Temp 97.8 97.9 97.8 97.9 Pulse 75 103 Resp 18 17 B/P (MAP) 110/65 (80) 123/63 (83) Pulse Ox 95 95 95 95 O2 Delivery Room Air Room Air Room Air Room Air 03/28/18 03/28/18 03/28/18 03/28/18 15:57 16:56 18:25 19:47 Temp 97.5 97.5 Pulse 66 Resp 16 B/P (MAP) 88/50 (63) Pulse Ox 95 95 95 95 O2 Delivery Room Air Room Air Room Air 03/28/18 03/28/18 03/28/18 03/29/18 20:00 20:40 23:31 00:13 Temp 97.5 98.5 97.5 98.5 Pulse 66 110 Resp 16 B/P (MAP) 100/59 (73) 117/71 (86) Pulse Ox 95 96 O2 Delivery Room Air Room Air Room Air Room Air 03/29/18 03/29/18 03/29/18 03/29/18 03:35 04:51 05:21 07:00 Temp 98.4 97.7 98.4 97.7 Pulse 97 86 Resp 16 16 B/P (MAP) 126/68 (87) 113/62 (79) Pulse Ox 96 94 O2 Delivery Room Air Room Air Room Air Room Air 03/29/18 03/29/18 03/29/18 07:35 08:36 09:29 O2 Delivery Room Air Room Air Room Air Intake and Output 03/28/18 03/28/18 03/29/18 15:00 23:00 07:00 Intake Total 0 ml 100 ml Output Total 350 ml 1260 ml Balance -350 ml 100 ml -1260 ml Nutrition Consultation Dietary Evaluation: Recommendations by RD: Increase Calorie Intake, Protein supplementation, PPN/ TPN Comments: continue mech soft diet, pt tolerating continue ensure tid continue PPN until po intake improves Expected Outcomes/Goals: to meet > 75% est nutr needs via po intake- not met, goal ongoing Interpretation of weight loss: >7.5% in 3 months Malnutrition Findings: Food and Nutrition Intake (Sev: <50% est energy req 5days Weight Status: Appropriate SUSAN GREENE MD Mar 29, 2018 10:38
--- NOTE | 2018-03-29 10:42 | PDOC ---
Subjective: Subjective: I saw him earlier this morning. Hard to clarify - put having some sort of issue swallowing a pill - doesn't hurt and doesn't get stuck, but "won't get past my tongue." Says throat feels "thick" after lidocaine. First says water doesn't go down, then says it does. Doesn't want to try any food right now. Denies vomiting - really hard to tell if he has nausea. Objective: Vital Signs: Vital Signs Date Time Temp Pulse Resp B/P (MAP) Pulse Ox O2 Delivery O2 Flow Rate FiO2 03/29/18 09:29 Room Air 03/29/18 07:00 97.7 86 16 113/62 (09) 94 97.7 PE: GEN: NAD, sitting in bed with LUNGS: CTAB HEART: RRR ABD: soft NEURO/PSYCH: A & O 3, anxious A/P: ?odynophagia/dysphagia ?nausea -- Very hard to clarify his symptoms but not feeling well this morning. Mentioned the possibility of PEG again - not much response from pt or . Will return later w/ Dr. Cloud. ZEB CAMPBELL Mar 29, 2018 10:42
[2018-03-29] MEDS: ONDANSETRON PF 4 MG/2 ML VIAL. IV PRN (11:01)
--- NOTE | 2018-03-29 11:33 | PDOC ---
SUBJECTIVE Subjective Radiation Oncology Progress Note: Mr. Elliott is a 67 yo male with history of a parotid malignancy now undergoing radiation therapy for a left forearm tumor. I visited with the patient after radiation treatment today and notes overall improvement since being in the hospital. He complains of mild fatigue and chronic issues with the large left sided head/face mass. For the left forearm, he is not complaining of any pain, soreness or pruritis. Currently not applying any topical skin cream to this region. OBJECTIVE Vital Signs Vital Signs Date Time Temp Pulse Resp B/P (MAP) Pulse Ox O2 Delivery O2 Flow Rate FiO2 03/29/18 09:29 Room Air 03/29/18 08:36 Room Air 03/29/18 07:35 Room Air 03/29/18 07:00 97.7 86 16 113/62 (79) 94 Room Air 97.7 03/29/18 05:21 Room Air 03/29/18 04:51 Room Air 03/29/18 03:35 98.4 97 16 126/68 (87) 96 Room Air 98.4 03/29/18 00:13 Room Air 03/28/18 23:31 98.5 110 16 117/71 (86) 96 Room Air 98.5 03/28/18 20:40 97.5 66 100/59 (73) 95 Room Air 97.5 03/28/18 20:00 Room Air 03/28/18 19:47 97.5 66 16 88/50 (63) 95 Room Air 97.5 03/28/18 18:25 95 Room Air 03/28/18 16:56 95 03/28/18 15:57 95 Room Air 03/28/18 15:24 95 Room Air 03/28/18 15:23 97.9 103 17 123/63 (83) 95 Room Air 97.9 03/28/18 15:23 95 Room Air I & O Intake and Output 03/29/18 07:00 Intake Total 100 ml Output Total 1610 ml Balance -1510 ml Intake Oral 100 ml Output Urine Total 1610 ml # Voids 4 ASSESSMENT/PLAN Assessment/Plan Left Forearm Mass: -continue with radiation therapy as per Dr. Liborio Jeronimo All questions answered. Instructed the patient to call us if any additional issues/questions. ROSIE SANDOVAL MD Mar 29, 2018 11:33
--- NOTE | 2018-03-29 11:45 | PDOC ---
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 ROS - no fever Objective Objective Vital Signs Date Time Temp Pulse Resp B/P (MAP) Pulse Ox O2 Delivery O2 Flow Rate FiO2 03/29/18 09:29 Room Air 03/29/18 07:00 97.7 86 16 113/62 (79) 94 97.7 Intake and Output 03/29/18 07:00 Intake Total 100 ml Output Total 1610 ml Balance -1510 ml Intake Oral 100 ml Output Urine Total 1610 ml # Voids 4 Physical Exam Heart: Normal S1, Normal S2 General: Alert, Oriented X3 Lungs: Clear to auscultation Neuro: Normal speech Psych/Mental Status: Mental status NL Assessment Assessment IMPRESSION AND PLAN: 1. 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 He was started on palliative treatment with Opdivo on 03/14/2018. He is due for cycle #2 on 03/28/2018. I will defer cycle 2 because of worsening weakness, and declining functional status. I have advised him to follow up with Dr. Gaona next week to continue treatment. 2. Generalized weakness. Continue supportive care. PPN ongoing. 3. Left facial wound. Consult wound management. I d/w Dr Campos, agree with broad spectrum abx coverage. 4. ALso has left forearm squamous cell carcinoma. He has had 2 of ten treatments to left forearm squamous cell carcinoma. Now with less bleeding of this lesion. Agree to resume forearm treatment (day 3 of 10). I d/w Dr Jeronimo. Dr Gaona will return on 04/01/18 for f/u. Comment Review of Relevant I have reviewed the following items daniella (where applicable) has been applied. Labs Laboratory Tests Test 03/28/18 06:15 White Blood Count 10.2 x10^3/uL (4.0-11.0) Red Blood Count 2.65 x10^6/uL (4.30-5.70) Hemoglobin 9.2 g/dL (13.0-17.5) Hematocrit 25.5 % (39.0-53.0) Mean Corpuscular Volume 96 fL (79-100) Mean Corpuscular Hemoglobin 35 pg (25-35) Mean Corpuscular Hemoglobin Concent 36 g/dL (31-37) Red Cell Distribution Width 13.7 % (11.5-14.5) Platelet Count 239 x10^3/uL (140-400) Neutrophils (%) (Auto) 85 % (31-73) Lymphocytes (%) (Auto) 5 % (24-48) Monocytes (%) (Auto) 8 % (0-9) Eosinophils (%) (Auto) 1 % (0-3) Basophils (%) (Auto) 1 % (0-3) Neutrophils # (Auto) 8.7 x10^3uL (1.8-7.7) Lymphocytes # (Auto) 0.5 x10^3/uL (1.0-4.8) Monocytes # (Auto) 0.8 x10^3/uL (0.0-1.1) Eosinophils # (Auto) 0.1 x10^3/uL (0.0-0.7) Basophils # (Auto) 0.0 x10^3/uL (0.0-0.2) Segmented Neutrophils % 89 % (35-66) Band Neutrophils % 2 % (0-9) Lymphocytes % 3 % (24-48) Monocytes % 6 % (0-10) Platelet Estimate Adequate (ADEQUATE) Sodium Level 135 mmol/L (136-145) Potassium Level 3.4 mmol/L (3.5-5.1) Chloride Level 96 mmol/L (98-107) Carbon Dioxide Level 32 mmol/L (21-32) Anion Gap 7 (6-14) Blood Urea Nitrogen 11 mg/dL (8-26) Creatinine 0.7 mg/dL (0.7-1.3) Estimated GFR (Cockcroft-Gault) 112.5 BUN/Creatinine Ratio 16 (6-20) Glucose Level 150 mg/dL (70-99) Calcium Level 8.7 mg/dL (8.5-10.1) Total Bilirubin 0.3 mg/dL (0.2-1.0) Aspartate Amino Transf (AST/SGOT) 9 U/L (15-37) Alanine Aminotransferase (ALT/SGPT) 11 U/L (16-63) Alkaline Phosphatase 52 U/L (46-116) Total Protein 6.0 g/dL (6.4-8.2) Albumin 2.0 g/dL (3.4-5.0) Albumin/Globulin Ratio 0.5 (1.0-1.7) Microbiology 03/27/18 Blood Culture - Preliminary, Resulted NO GROWTH AFTER 1 DAY Medications Current Medications Amino Acids/ Glycerin/ Electrolytes 1,000 ml @ 80 mls/hr [id number] IV Last administered on 03/29/18at 06:22; Start 03/26/18 at 16:00 Levofloxacin/ Dextrose 150 ml @ 100 mls/hr Q24H IV Last administered on at 17:51; Start 03/26/18 at 16:00; Stop 03/27/18 at 09:01; Status DC Acetaminophen (Tylenol) 650 mg PRN Q6HRS PRN PO FEVER; Start 03/26/18 at 15:15 Ondansetron HCl (Zofran) 4 mg PRN Q6HRS PRN IV NAUSEA/VOMITING Last administered on 03/29/18at 11:01; Start 03/26/18 at 15:15 Morphine Sulfate (Morphine Sulfate) 2 mg PRN Q2HR PRN IV MODERATE TO SEVERE PAIN; Start 03/26/18 at 15:15; Stop 03/27/18 at 16:33; Status DC Tramadol HCl (Ultram) 50 mg PRN Q6HRS PRN PO MILD TO MODERATE PAIN; Start at 15:15 Docusate Sodium (Colace) 100 mg PRN DAILY PRN PO CONSTIPATION; Start 03/26/18 at 15:15 Oxycodone/ Acetaminophen (Percocet 10/325) 1 tab PRN Q6HRS PRN PO SEVERE PAIN Last administered on 03/29/18at 08:36; Start 03/26/18 at 15:15 Albuterol Sulfate (Ventolin Neb Soln) 2.5 mg PRN Q4HRS PRN NEB SHORTNESS OF BREATH; Start 03/26/18 at 15:15 Hydromorphone HCl (Dilaudid) 1 mg Q3HRS PRN IV MODERATE PAIN Last administered on 03/27/18at 01:39; Start 03/26/18 at 19:30; Stop 03/27/18 at 19:30; Status DC Hydromorphone HCl (Dilaudid) 2 mg Q3HRS PRN IV SEVERE PAIN Last administered on 03/27/18at 19:07; Start 03/26/18 at 19:30; Stop 03/27/18 at 19:33; Status DC Potassium Chloride (Klor-Con) 40 meq 1X ONCE PO Last administered on at 20:51; Start 03/26/18 at 19:30; Stop 03/26/18 at 19:35; Status DC Piperacillin Sod/ Tazobactam Sod 4.5 gm/Sodium Chloride 100 ml @ 200 mls/hr Q6HRS IV Last administered on 03/29/18at 06:22; Start 03/27/18 at 10:00 Linezolid/Dextrose 300 ml @ 300 mls/hr Q12HR IV Last administered on at 08:37; Start 03/27/18 at 10:00 Pantoprazole Sodium (PROTONIX VIAL for IV PUSH) 40 mg DAILYAC IVP Last administered on 03/29/18at 08:36; Start 03/27/18 at 11:30 Lidocaine HCl (Viscous Lidocaine) 15 ml PRN TID PRN SWSW mouth/throat pain; Start 03/27/18 at 11:30; Stop 03/28/18 at 10:17; Status DC Lactobacillus Rhamnosus (Culturelle) 1 cap BID PO Last administered on at 21:34; Start 03/27/18 at 12:00 Morphine Sulfate (Morphine Sulfate) 4 mg PRN Q2HR PRN IV MODERATE TO SEVERE PAIN; Start 03/27/18 at 16:45 Hydromorphone HCl (Dilaudid) 2 mg PRN Q3HRS PRN IV MODERATE PAIN Last administered on 03/29/18at 04:51; Start 03/27/18 at 19:30 Hydromorphone HCl (Dilaudid) 2 mg PRN Q3HRS PRN IV SEVERE PAIN Last administered on 03/28/18at 15:24; Start 03/27/18 at 19:45 Lidocaine HCl (Viscous Lidocaine) 15 ml TIDAC SWSW Last administered on at 08:35; Start 03/28/18 at 11:30 Active Scripts Active Augmentin 875-125 Tablet (Amoxicillin/Potassium Clav) 1 Each Tablet 1 Tab PO BID Polyethylene Glycol 3350 17 Gm Powd.pack 17 Gm PO PRN DAILY PRN Colace (Docusate Sodium) 100 Mg Capsule 100 Mg PO BID Reported Xarelto (Rivaroxaban) 20 Mg Tablet 20 Mg PO DAILYWSUP Zofran (Ondansetron Hcl) 8 Mg Tablet 8 Mg PO BID PRN Morphine Sulfate 15 Mg Tablet 15 Mg PO BID Ambien (Zolpidem Tartrate) 5 Mg Tablet 1 Tab PO QHS PRN Potassium Chloride 20 Meq Tablet.er 20 Meq PO DAILY Metoprolol Tartrate 50 Mg Tablet 25 Mg PO HS Simvastatin 20 Mg Tablet 20 Mg PO HS Percocet 10-325 Mg Tablet (Oxycodone/Acetaminophen) 1 Each Tablet 1 Tab PO PRN Q6HRS PRN Vitals/I & O Vital Sign - Last 24 Hours 03/28/18 03/28/18 03/28/18 03/28/18 15:23 15:23 15:24 15:57 Temp 97.9 97.9 Pulse 103 Resp 17 B/P (MAP) 123/63 (83) Pulse Ox 95 95 95 95 O2 Delivery Room Air Room Air Room Air Room Air 03/28/18 03/28/18 03/28/18 03/28/18 16:56 18:25 19:47 20:00 Temp 97.5 97.5 Pulse 66 Resp 16 B/P (MAP) 88/50 (63) Pulse Ox 95 95 95 O2 Delivery Room Air Room Air Room Air 03/28/18 03/28/18 03/29/18 03/29/18 20:40 23:31 00:13 03:35 Temp 97.5 98.5 98.4 97.5 98.5 98.4 Pulse 66 110 97 Resp 16 16 B/P (MAP) 100/59 (73) 117/71 (86) 126/68 (87) Pulse Ox 95 96 96 O2 Delivery Room Air Room Air Room Air Room Air 03/29/18 03/29/18 03/29/18 03/29/18 04:51 05:21 07:00 07:35 Temp 97.7 97.7 Pulse 86 Resp 16 B/P (MAP) 113/62 (79) Pulse Ox 94 O2 Delivery Room Air Room Air Room Air Room Air 03/29/18 03/29/18 08:36 09:29 O2 Delivery Room Air Room Air Intake and Output 03/28/18 03/28/18 03/29/18 15:00 23:00 07:00 Intake Total 0 ml 100 ml Output Total 350 ml 1260 ml Balance -350 ml 100 ml -1260 ml Nutrition Consultation Dietary Evaluation: Recommendations by RD: Increase Calorie Intake, Protein supplementation, PPN/ TPN Comments: continue mech soft diet, pt tolerating continue ensure tid continue PPN until po intake improves Expected Outcomes/Goals: to meet > 75% est nutr needs via po intake- not met, goal ongoing Interpretation of weight loss: >7.5% in 3 months Malnutrition Findings: Food and Nutrition Intake (Sev: <50% est energy req 5days Weight Status: Appropriate LYNDSEY WELCH MD Mar 29, 2018 11:45
[2018-03-29 12:18] LABS: BASO # 0.1 x10^3/uL (0.0-0.2); BASO % 1 % (0-3); EOS % 0 % (0-3); HEMATOCRIT 24.8 % (39.0-53.0); HEMOGLOBIN 8.9 g/dL (13.0-17.5); LYMPH # 0.4 x10^3/uL (1.0-4.8); LYMPH % 4 % (24-48); MEAN CORPUSCULAR HEMOGLOBIN 35 pg (25-35); MEAN CORPUSCULAR HGB CONC 36 g/dL (31-37); MEAN CORPUSCULAR VOLUME 97 fL (79-100); MONO # 0.6 x10^3/uL (0.0-1.1); MONO % 6 % (0-9); NEUT # 9.5 x10^3uL (1.8-7.7); NEUT % 89 % (31-73); PLATELET COUNT 240 x10^3/uL (140-400); RED BLOOD COUNT 2.57 x10^6/uL (4.30-5.70); RED CELL DISTRIBUTION WIDTH 13.6 % (11.5-14.5); WHITE BLOOD COUNT 10.6 x10^3/uL (4.0-11.0)
[2018-03-29 12:36] LABS: ALBUMIN 2.1 g/dL (3.4-5.0); ALBUMIN/GLOBULIN RATIO 0.6 (1.0-1.7); CALCIUM 8.6 mg/dL (8.5-10.1); CREATININE 0.9 mg/dL (0.7-1.3); GFR 84.2; MAGNESIUM 1.6 mg/dL (1.8-2.4); POTASSIUM 3.5 mmol/L (3.5-5.1); TOTAL BILIRUBIN 0.3 mg/dL (0.2-1.0); TOTAL PROTEIN 5.9 g/dL (6.4-8.2)
[2018-03-29 15:00] VITALS: BP 139/62
--- NOTE | 2018-03-29 15:01 | PDOC2 ---
KITTY CIFUENTES SUPERVISOR CAB 03/29/18 1501: CARDIAC CONSULT DATE OF CONSULT Date of Consult DATE: 03/29/18 TIME: 14:47 REASON FOR CONSULT Reason for Consult: AFIB RVR REFERRING PHYSICIAN Referring Physician: 03/29/2018, SOURCE Source: Caregiver (spouse), Chart review, Patient HISTORY OF PRESENT ILLNESS HISTORY OF PRESENT ILLNESS This is a 67 yo male admitted for complains of weakness and vomiting. spouse was in at the time and was able to help me with some details. In the last week he has been progressively getting unable to eat and has been vomiting. There has been no chest pain or SOA and no palpitations. 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 Since admission he has not taken his BB and his BP has been low. He continues to have intermittent bursts of AFIB RVR otherwise he spontaneously converts himself to SR. He sees Dr. Bonner from [facility] and was seen 4 months ago and was doing well at that time. He has had PCI stent 7 yrs ago and had stress test mid last yr and was ok accdg to him. PAST MEDICAL HISTORY Cardiovascular: AFIB, CAD, HTN CENTRAL NERVOUS SYSTEM: Other (No pertinent history) Heme/Onc: Anemia NOS, Cancer (recurrent parotid CA with prior chemo; LFA SCC) Musculoskeletal: Osteoarthritis Endocrine: Diabetes (past) Dermatology: Other PAST SURGICAL HISTORY Past Surgical History: Other (PCI/stent; left facial surgery, portacath right chest) FAMILY HISTORY Family History noncontributory to CV SOCIAL HISTORY Smoke: Quit ALCOHOL: none Drugs: None Lives: with Family ALLERGIES ALLERGIES: Coded Allergies: No Known Drug Allergies (Unverified , 10/02/16) ROS Review of System 14 point ROS evaluated with pertinent positives noted per HPI PHYSICAL EXAM General: Alert, Oriented X3, Cooperative, No acute distress HEENT: Other (left parotid CA) Lungs: Other (diminished bases) Heart: Regular rate (SR with bursts of AFIB RVR), Other (2/6 systolic murmur to LLS border) Abdomen: Soft, No tenderness Extremities: No cyanosis, Other (trace LE edema) Skin: Other (LFA and Left parotid SCC) Neuro: Normal speech, Sensation intact Psych/Mental Status: Mental status NL, Mood NL MUSCULOSKELETAL: Osteoarthritic changes both hands VITALS VITALS Vital Signs Date Time Temp Pulse Resp B/P (MAP) Pulse Ox O2 Delivery O2 Flow Rate FiO2 03/29/18 12:44 Room Air 03/29/18 07:00 97.7 86 16 113/62 (79) 94 97.7 LABS Lab: Laboratory Tests Test 03/29/18 12:10 White Blood Count 10.6 x10^3/uL (4.0-11.0) Red Blood Count 2.57 x10^6/uL (4.30-5.70) Hemoglobin 8.9 g/dL (13.0-17.5) Hematocrit 24.8 % (39.0-53.0) Mean Corpuscular Volume 97 fL (79-100) Mean Corpuscular Hemoglobin 35 pg (25-35) Mean Corpuscular Hemoglobin Concent 36 g/dL (31-37) Red Cell Distribution Width 13.6 % (11.5-14.5) Platelet Count 240 x10^3/uL (140-400) Neutrophils (%) (Auto) 89 % (31-73) Lymphocytes (%) (Auto) 4 % (24-48) Monocytes (%) (Auto) 6 % (0-9) Eosinophils (%) (Auto) 0 % (0-3) Basophils (%) (Auto) 1 % (0-3) Neutrophils # (Auto) 9.5 x10^3uL (1.8-7.7) Lymphocytes # (Auto) 0.4 x10^3/uL (1.0-4.8) Monocytes # (Auto) 0.6 x10^3/uL (0.0-1.1) Eosinophils # (Auto) 0.0 x10^3/uL (0.0-0.7) Basophils # (Auto) 0.1 x10^3/uL (0.0-0.2) Sodium Level 134 mmol/L (136-145) Potassium Level 3.5 mmol/L (3.5-5.1) Chloride Level 95 mmol/L (98-107) Carbon Dioxide Level 33 mmol/L (21-32) Anion Gap 6 (6-14) Blood Urea Nitrogen 9 mg/dL (8-26) Creatinine 0.9 mg/dL (0.7-1.3) Estimated GFR (Cockcroft-Gault) 84.2 BUN/Creatinine Ratio 10 (6-20) Glucose Level 168 mg/dL (70-99) Calcium Level 8.6 mg/dL (8.5-10.1) Magnesium Level 1.6 mg/dL (1.8-2.4) Total Bilirubin 0.3 mg/dL (0.2-1.0) Aspartate Amino Transf (AST/SGOT) 7 U/L (15-37) Alanine Aminotransferase (ALT/SGPT) 6 U/L (16-63) Alkaline Phosphatase 48 U/L (46-116) Total Protein 5.9 g/dL (6.4-8.2) Albumin 2.1 g/dL (3.4-5.0) Albumin/Globulin Ratio 0.6 (1.0-1.7) Thyroid Stimulating Hormone (TSH) 0.286 uIU/mL (0.358-3.74) ASSESSMENT/PLAN ASSESSMENT/PLAN 1. 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 2. Vomiting/weakness/odynophagia: per GI 3. PAFIB with RVR: intermittent episodes due to above and missed BB dosing. 4. CAD: stents in the past, clinically stable 5. HTN: controlled 6. HLP 7. Anemia of chronic disease Recommendations 1. Dig IVx1. Resume home BB. Replace K and Mg 2. ASA 81 mg. Resume xarelto if no further invasive procedure such as facial surgery or PEG placement is needed. 3. Follow up with [facility] cardiology as outpt. Resume statin 4. If vomiting recurs then may change lopressor to IV. 5. TTE, TSH, T4/T3 JOSE E OLIVA MD 03/29/18 1606: CARDIAC CONSULT ASSESSMENT/PLAN ASSESSMENT/PLAN Patient seen and examined. Agree with UTILITY OPERATOR's assessment and plan. Patient presently back in sinus rhythm. Telemetry showed paroxysms of atrial fibrillation. Resume beta blockers now and restart xarelto prior to discharge. We will defer antiarrhythmic therapy initiation to primary merchandise flow manager. Thank you for your consultation. KITTY CIFUENTES APRN Mar 29, 2018 15:01 JOSE E OLIVA MD Mar 29, 2018 16:06
[2018-03-29] MEDS ORDERED: DIGOXIN IV 500 MCG/2 ML AMPUL. IV ONE (15:30)
[2018-03-29] MEDS: METOPROLOL TART IMMED RELEASE 25 MG TABLET. PO SCH ×2 (15:39→20:52)
[2018-03-29 15:54] LABS: FREE T4 1.36 ng/dL (0.76-1.46)
[2018-03-29] MEDS ORDERED: POTASSIUM CHLORIDE 20 MEQ/15 ML ORAL LIQUID. PEG ONE (16:00)
[2018-03-29] MEDS ORDERED: MAGNESIUM SULFATE 2GM 50 ML IV ONE (16:00)
--- NOTE | 2018-03-29 16:19 | PDOC2 ---
PALLIATIVE CARE Palliative Care Note PALLIATIVE CARE Consult requested by Dr. Cloud to address intermediate accountant goals of care. 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 He was started on palliative treatment with Opdivo on 03/14/2018. Generalized weakness. Continue supportive care. PPN ongoing. Left facial wound. wound management. left forearm squamous cell carcinoma. has had 2 of ten treatments to left forearm squamous cell carcinoma. Spoke with patient and Negin. Patient has AD. Plan to continue treatments. Patient is DNR/DNI. Outside the Hospital DNR/DNI form completed. Will need physician signature. Patient lives at home with . Has Home Health. Will continue to follow for further planning including discharge plan LAUREL GASTON Mar 29, 2018 16:18
[2018-03-29 19:47] VITALS: BP 143/57
[2018-03-29] MEDS: LINEZOLID 600 MG TABLET PO SCH (20:42)
[2018-03-29] MEDS: ATORVASTATIN CALCIUM 20 MG TABLET PO SCH (20:42)
[2018-03-29] MEDS: AMOXICILLIN/K CLAV 875/125MG TABLET. PO SCH (20:42)
[2018-03-29 23:55] VITALS: BP 133/76
[2018-03-30] MEDS: HYDROmorphone 2 MG/ML VIAL IV PRN ×6 (01:29→22:23)
[2018-03-30 03:00] VITALS: BP 128/64
[2018-03-30 07:00] VITALS: BP 131/68
--- NOTE | 2018-03-30 08:53 | PDOC ---
PROGRESS NOTES History of Present Illness History of Present Illness Assessment/Plan Assessment/Plan generalized weakness. 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 There is also increased bone destruction of the left zygomatic arch, left mastoid air cells, left temporal and left temporal calvarium with possible intracranial extent to the lateral aspect of the left middle cranial fossa. Progression of findings may be due to progression of neoplasm although also consideration of associated infection and osteomyelitis. chronic pain opoid dependence. 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 Left Gao palsy changes present chronic, unable to close left eyelid completely due to same. Not able to open mouth fully LUNGS: Clear bilaterally. CARDIOVASCULAR: S1, S2. ABDOMEN: Soft, nontender. FLOOR POLISHER: More alert and engaging SKIN: without rash. Left arm dressing dry/intact Port - wo signs of complications General: Alert, Oriented X3, Cooperative, No acute distress Heart: Regular rate (SR with bursts of AFIB RVR), Normal S1, Normal S2, Other ( 2/6 systolic murmur to LLS border) Lungs: Clear Abdomen: Soft, No tenderness Extremities: No clubbing, No cyanosis, Other (trace LE edema) Skin: Other (LFA and Left parotid SCC) Labs LABS Laboratory Tests Test 03/29/18 12:10 White Blood Count 10.6 x10^3/uL (4.0-11.0) Red Blood Count 2.57 x10^6/uL (4.30-5.70) Hemoglobin 8.9 g/dL (13.0-17.5) Hematocrit 24.8 % (39.0-53.0) Mean Corpuscular Volume 97 fL (79-100) Mean Corpuscular Hemoglobin 35 pg (25-35) Mean Corpuscular Hemoglobin Concent 36 g/dL (31-37) Red Cell Distribution Width 13.6 % (11.5-14.5) Platelet Count 240 x10^3/uL (140-400) Neutrophils (%) (Auto) 89 % (31-73) Lymphocytes (%) (Auto) 4 % (24-48) Monocytes (%) (Auto) 6 % (0-9) Eosinophils (%) (Auto) 0 % (0-3) Basophils (%) (Auto) 1 % (0-3) Neutrophils # (Auto) 9.5 x10^3uL (1.8-7.7) Lymphocytes # (Auto) 0.4 x10^3/uL (1.0-4.8) Monocytes # (Auto) 0.6 x10^3/uL (0.0-1.1) Eosinophils # (Auto) 0.0 x10^3/uL (0.0-0.7) Basophils # (Auto) 0.1 x10^3/uL (0.0-0.2) Sodium Level 134 mmol/L (136-145) Potassium Level 3.5 mmol/L (3.5-5.1) Chloride Level 95 mmol/L (98-107) Carbon Dioxide Level 33 mmol/L (21-32) Anion Gap 6 (6-14) Blood Urea Nitrogen 9 mg/dL (8-26) Creatinine 0.9 mg/dL (0.7-1.3) Estimated GFR (Cockcroft-Gault) 84.2 BUN/Creatinine Ratio 10 (6-20) Glucose Level 168 mg/dL (70-99) Calcium Level 8.6 mg/dL (8.5-10.1) Magnesium Level 1.6 mg/dL (1.8-2.4) Total Bilirubin 0.3 mg/dL (0.2-1.0) Aspartate Amino Transf (AST/SGOT) 7 U/L (15-37) Alanine Aminotransferase (ALT/SGPT) 6 U/L (16-63) Alkaline Phosphatase 48 U/L (46-116) Total Protein 5.9 g/dL (6.4-8.2) Albumin 2.1 g/dL (3.4-5.0) Albumin/Globulin Ratio 0.6 (1.0-1.7) Thyroid Stimulating Hormone (TSH) 0.286 uIU/mL (0.358-3.74) Free Thyroxine 1.36 ng/dL (0.76-1.46) Free Triiodothyronine (T3) pg/mL 1.64 pg/mL (2.18-3.98) Comment Review of Relevant I have reviewed the following items daniella (where applicable) has been applied. Labs Laboratory Tests Test 03/29/18 12:10 White Blood Count 10.6 x10^3/uL (4.0-11.0) Red Blood Count 2.57 x10^6/uL (4.30-5.70) Hemoglobin 8.9 g/dL (13.0-17.5) Hematocrit 24.8 % (39.0-53.0) Mean Corpuscular Volume 97 fL (79-100) Mean Corpuscular Hemoglobin 35 pg (25-35) Mean Corpuscular Hemoglobin Concent 36 g/dL (31-37) Red Cell Distribution Width 13.6 % (11.5-14.5) Platelet Count 240 x10^3/uL (140-400) Neutrophils (%) (Auto) 89 % (31-73) Lymphocytes (%) (Auto) 4 % (24-48) Monocytes (%) (Auto) 6 % (0-9) Eosinophils (%) (Auto) 0 % (0-3) Basophils (%) (Auto) 1 % (0-3) Neutrophils # (Auto) 9.5 x10^3uL (1.8-7.7) Lymphocytes # (Auto) 0.4 x10^3/uL (1.0-4.8) Monocytes # (Auto) 0.6 x10^3/uL (0.0-1.1) Eosinophils # (Auto) 0.0 x10^3/uL (0.0-0.7) Basophils # (Auto) 0.1 x10^3/uL (0.0-0.2) Sodium Level 134 mmol/L (136-145) Potassium Level 3.5 mmol/L (3.5-5.1) Chloride Level 95 mmol/L (98-107) Carbon Dioxide Level 33 mmol/L (21-32) Anion Gap 6 (6-14) Blood Urea Nitrogen 9 mg/dL (8-26) Creatinine 0.9 mg/dL (0.7-1.3) Estimated GFR (Cockcroft-Gault) 84.2 BUN/Creatinine Ratio 10 (6-20) Glucose Level 168 mg/dL (70-99) Calcium Level 8.6 mg/dL (8.5-10.1) Magnesium Level 1.6 mg/dL (1.8-2.4) Total Bilirubin 0.3 mg/dL (0.2-1.0) Aspartate Amino Transf (AST/SGOT) 7 U/L (15-37) Alanine Aminotransferase (ALT/SGPT) 6 U/L (16-63) Alkaline Phosphatase 48 U/L (46-116) Total Protein 5.9 g/dL (6.4-8.2) Albumin 2.1 g/dL (3.4-5.0) Albumin/Globulin Ratio 0.6 (1.0-1.7) Thyroid Stimulating Hormone (TSH) 0.286 uIU/mL (0.358-3.74) Free Thyroxine 1.36 ng/dL (0.76-1.46) Free Triiodothyronine (T3) pg/mL 1.64 pg/mL (2.18-3.98) Laboratory Tests Test 03/29/18 12:10 White Blood Count 10.6 x10^3/uL (4.0-11.0) Red Blood Count 2.57 x10^6/uL (4.30-5.70) Hemoglobin 8.9 g/dL (13.0-17.5) Hematocrit 24.8 % (39.0-53.0) Mean Corpuscular Volume 97 fL (79-100) Mean Corpuscular Hemoglobin 35 pg (25-35) Mean Corpuscular Hemoglobin Concent 36 g/dL (31-37) Red Cell Distribution Width 13.6 % (11.5-14.5) Platelet Count 240 x10^3/uL (140-400) Neutrophils (%) (Auto) 89 % (31-73) Lymphocytes (%) (Auto) 4 % (24-48) Monocytes (%) (Auto) 6 % (0-9) Eosinophils (%) (Auto) 0 % (0-3) Basophils (%) (Auto) 1 % (0-3) Neutrophils # (Auto) 9.5 x10^3uL (1.8-7.7) Lymphocytes # (Auto) 0.4 x10^3/uL (1.0-4.8) Monocytes # (Auto) 0.6 x10^3/uL (0.0-1.1) Eosinophils # (Auto) 0.0 x10^3/uL (0.0-0.7) Basophils # (Auto) 0.1 x10^3/uL (0.0-0.2) Sodium Level 134 mmol/L (136-145) Potassium Level 3.5 mmol/L (3.5-5.1) Chloride Level 95 mmol/L (98-107) Carbon Dioxide Level 33 mmol/L (21-32) Anion Gap 6 (6-14) Blood Urea Nitrogen 9 mg/dL (8-26) Creatinine 0.9 mg/dL (0.7-1.3) Estimated GFR (Cockcroft-Gault) 84.2 BUN/Creatinine Ratio 10 (6-20) Glucose Level 168 mg/dL (70-99) Calcium Level 8.6 mg/dL (8.5-10.1) Magnesium Level 1.6 mg/dL (1.8-2.4) Total Bilirubin 0.3 mg/dL (0.2-1.0) Aspartate Amino Transf (AST/SGOT) 7 U/L (15-37) Alanine Aminotransferase (ALT/SGPT) 6 U/L (16-63) Alkaline Phosphatase 48 U/L (46-116) Total Protein 5.9 g/dL (6.4-8.2) Albumin 2.1 g/dL (3.4-5.0) Albumin/Globulin Ratio 0.6 (1.0-1.7) Thyroid Stimulating Hormone (TSH) 0.286 uIU/mL (0.358-3.74) Free Thyroxine 1.36 ng/dL (0.76-1.46) Free Triiodothyronine (T3) pg/mL 1.64 pg/mL (2.18-3.98) Microbiology 03/27/18 Blood Culture - Preliminary, Resulted NO GROWTH AFTER 2 DAYS Medications Current Medications Amino Acids/ Glycerin/ Electrolytes 1,000 ml @ 80 mls/hr [id number] IV Last administered on 03/29/18at 20:42; Start 03/26/18 at 16:00 Levofloxacin/ Dextrose 150 ml @ 100 mls/hr Q24H IV Last administered on at 17:51; Start 03/26/18 at 16:00; Stop 03/27/18 at 09:01; Status DC Acetaminophen (Tylenol) 650 mg PRN Q6HRS PRN PO FEVER; Start 03/26/18 at 15:15 Ondansetron HCl (Zofran) 4 mg PRN Q6HRS PRN IV NAUSEA/VOMITING Last administered on 03/29/18at 11:01; Start 03/26/18 at 15:15 Morphine Sulfate (Morphine Sulfate) 2 mg PRN Q2HR PRN IV MODERATE TO SEVERE PAIN; Start 03/26/18 at 15:15; Stop 03/27/18 at 16:33; Status DC Tramadol HCl (Ultram) 50 mg PRN Q6HRS PRN PO MILD TO MODERATE PAIN; Start at 15:15 Docusate Sodium (Colace) 100 mg PRN DAILY PRN PO CONSTIPATION; Start 03/26/18 at 15:15 Oxycodone/ Acetaminophen (Percocet 10/325) 1 tab PRN Q6HRS PRN PO SEVERE PAIN Last administered on 03/29/18at 08:36; Start 03/26/18 at 15:15 Albuterol Sulfate (Ventolin Neb Soln) 2.5 mg PRN Q4HRS PRN NEB SHORTNESS OF BREATH; Start 03/26/18 at 15:15 Hydromorphone HCl (Dilaudid) 1 mg Q3HRS PRN IV MODERATE PAIN Last administered on 03/27/18at 01:39; Start 03/26/18 at 19:30; Stop 03/27/18 at 19:30; Status DC Hydromorphone HCl (Dilaudid) 2 mg Q3HRS PRN IV SEVERE PAIN Last administered on 03/27/18at 19:07; Start 03/26/18 at 19:30; Stop 03/27/18 at 19:33; Status DC Potassium Chloride (Klor-Con) 40 meq 1X ONCE PO Last administered on at 20:51; Start 03/26/18 at 19:30; Stop 03/26/18 at 19:35; Status DC Piperacillin Sod/ Tazobactam Sod 4.5 gm/Sodium Chloride 100 ml @ 200 mls/hr Q6HRS IV Last administered on 03/29/18at 12:06; Start 03/27/18 at 10:00; Stop 03/29/18 at 15:12; Status DC Linezolid/Dextrose 300 ml @ 300 mls/hr Q12HR IV Last administered on at 08:37; Start 03/27/18 at 10:00; Stop 03/29/18 at 15:12; Status DC Pantoprazole Sodium (PROTONIX VIAL for IV PUSH) 40 mg DAILYAC IVP Last administered on 03/29/18at 08:36; Start 03/27/18 at 11:30; Stop 03/29/18 at 18: 54; Status DC Lidocaine HCl (Viscous Lidocaine) 15 ml PRN TID PRN SWSW mouth/throat pain; Start 03/27/18 at 11:30; Stop 03/28/18 at 10:17; Status DC Lactobacillus Rhamnosus (Culturelle) 1 cap BID PO Last administered on at 21:34; Start 03/27/18 at 12:00; Stop 03/29/18 at 18:52; Status DC Morphine Sulfate (Morphine Sulfate) 4 mg PRN Q2HR PRN IV MODERATE TO SEVERE PAIN; Start 03/27/18 at 16:45 Hydromorphone HCl (Dilaudid) 2 mg PRN Q3HRS PRN IV MODERATE PAIN Last administered on 03/30/18at 06:21; Start 03/27/18 at 19:30 Hydromorphone HCl (Dilaudid) 2 mg PRN Q3HRS PRN IV SEVERE PAIN Last administered on 03/28/18at 15:24; Start 03/27/18 at 19:45 Lidocaine HCl (Viscous Lidocaine) 15 ml TIDAC SWSW Last administered on at 15:49; Start 03/28/18 at 11:30 Amoxicillin/ Clavulanate Potassium (Augmentin 875/ 125mg) 1 tab BID PO Last administered on 03/29/18at 20:42; Start 03/29/18 at 21:00 Linezolid (Zyvox) 600 mg BID PO Last administered on 03/29/18at 20:42; Start at 21:00 Magnesium Sulfate 50 ml @ 25 mls/hr 1X ONCE IV Last administered on 03/29/18at 15:45; Start 03/29/18 at 16:00; Stop 03/29/18 at 17:59; Status DC Metoprolol Tartrate (Lopressor) 25 mg BID PO Last administered on 03/29/18at 20: 52; Start 03/29/18 at 15:15 Aspirin (Ecotrin) 81 mg DAILYWBKFT PO ; Start 03/30/18 at 08:00 Potassium Chloride (KCl Oral Soln) 20 meq 1X ONCE PEG Last administered on 03/29/18at 15:34; Start 03/29/18 at 16:00; Stop 03/29/18 at 16:01; Status DC Atorvastatin Calcium (Lipitor) 20 mg QHS PO Last administered on 03/29/18at 20: 42; Start 03/29/18 at 21:00 Digoxin (Lanoxin) 500 mcg 1X ONCE IV Last administered on 03/29/18at 15:40; Start 03/29/18 at 15:30; Stop 03/29/18 at 15:31; Status DC Pantoprazole Sodium (Protonix) 40 mg DAILYAC PO ; Start 03/30/18 at 07:30 Active Scripts Active Augmentin 875-125 Tablet (Amoxicillin/Potassium Clav) 1 Each Tablet 1 Tab PO BID Polyethylene Glycol 3350 17 Gm Powd.pack 17 Gm PO PRN DAILY PRN Colace (Docusate Sodium) 100 Mg Capsule 100 Mg PO BID Reported Xarelto (Rivaroxaban) 20 Mg Tablet 20 Mg PO DAILYWSUP Zofran (Ondansetron Hcl) 8 Mg Tablet 8 Mg PO BID PRN Morphine Sulfate 15 Mg Tablet 15 Mg PO BID Ambien (Zolpidem Tartrate) 5 Mg Tablet 1 Tab PO QHS PRN Potassium Chloride 20 Meq Tablet.er 20 Meq PO DAILY Metoprolol Tartrate 50 Mg Tablet 25 Mg PO HS Simvastatin 20 Mg Tablet 20 Mg PO HS Percocet 10-325 Mg Tablet (Oxycodone/Acetaminophen) 1 Each Tablet 1 Tab PO PRN Q6HRS PRN Vitals/I & O Vital Sign - Last 24 Hours 03/29/18 03/29/18 03/29/18 03/29/18 09:29 12:05 12:44 15:00 Temp 98.0 98.0 Pulse 114 Resp 16 B/P (MAP) 139/62 (87) Pulse Ox 97 O2 Delivery Room Air Room Air Room Air Room Air 03/29/18 03/29/18 03/29/18 03/29/18 15:39 15:40 19:47 20:15 Temp 97.5 97.5 Pulse 96 96 85 Resp 18 B/P (MAP) 139/62 139/62 143/57 (85) Pulse Ox 99 O2 Delivery Room Air Room Air 03/29/18 03/29/18 03/30/18 03/30/18 20:52 23:55 03:00 07:00 Temp 97.9 97.8 97.7 97.9 97.8 97.7 Pulse 85 83 62 79 Resp 18 18 18 B/P (MAP) 143/57 133/76 (95) 128/64 (85) 131/68 (89) Pulse Ox 96 94 92 O2 Delivery Room Air Room Air Room Air Intake and Output 03/29/18 03/29/18 03/30/18 15:00 23:00 07:00 Intake Total 50 ml 340 ml Output Total 500 ml 300 ml 800 ml Balance -450 ml 40 ml -800 ml Nutrition Consultation Dietary Evaluation: Recommendations by RD: Increase Calorie Intake, Protein supplementation, PPN/ TPN Comments: continue mech soft diet, pt tolerating continue ensure tid continue PPN until po intake improves Expected Outcomes/Goals: to meet > 75% est nutr needs via po intake- not met, goal ongoing Interpretation of weight loss: >7.5% in 3 months Malnutrition Findings: Food and Nutrition Intake (Sev: <50% est energy req 5days Weight Status: Appropriate SUSAN GREENE MD Mar 30, 2018 08:53
[2018-03-30] MEDS: AMINO AC 3%/ELECTROLYTE/GLYCER 1,000 ML IV SCH ×2 (09:33→22:26)
[2018-03-30] MEDS: LINEZOLID 600 MG TABLET PO SCH ×2 (09:34→19:40)
[2018-03-30] MEDS: AMOXICILLIN/K CLAV 875/125MG TABLET. PO SCH ×2 (09:34→19:40)
[2018-03-30] MEDS: LIDOCAINE 2% VISCOUS 15 ML SOLUTION. SWSW SCH ×3 (09:34→16:30)
[2018-03-30] MEDS: ASPIRIN ENTERIC COATED 81 MG TABLET.DR. PO SCH (09:35)
[2018-03-30] MEDS: PANTOPRAZOLE 40 MG TABLET.DR. PO SCH (09:35)
[2018-03-30] MEDS: METOPROLOL TART IMMED RELEASE 25 MG TABLET. PO SCH ×2 (09:35→19:40)
--- NOTE | 2018-03-30 10:54 | PDOC ---
Infectious Disease Note Subjective Subjective Doing ok Denies N/V/D Pain level fair No fevers/chills ROS ROS per HPI otherwise neg Vital Sign Vital Signs Vital Signs Date Time Temp Pulse Resp B/P (MAP) Pulse Ox O2 Delivery O2 Flow Rate FiO2 03/30/18 10:08 92 Room Air 03/30/18 09:35 79 131/68 03/30/18 07:00 97.7 18 97.7 Physical Exam PHYSICAL EXAM GENERAL: Sitting on the side of the bed, tired appearance HEENT: Dressing over the left side of face. + odor Left Gao palsy changes present chronic, unable to close left eyelid completely due to same. LUNGS: Clear bilaterally. CARDIOVASCULAR: S1, S2. ABDOMEN: Soft, nontender. 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 Left arm dressing dry/intact Port - wo signs of complications Labs Lab Laboratory Tests Test 03/29/18 12:10 White Blood Count 10.6 x10^3/uL (4.0-11.0) Red Blood Count 2.57 x10^6/uL (4.30-5.70) Hemoglobin 8.9 g/dL (13.0-17.5) Hematocrit 24.8 % (39.0-53.0) Mean Corpuscular Volume 97 fL (79-100) Mean Corpuscular Hemoglobin 35 pg (25-35) Mean Corpuscular Hemoglobin Concent 36 g/dL (31-37) Red Cell Distribution Width 13.6 % (11.5-14.5) Platelet Count 240 x10^3/uL (140-400) Neutrophils (%) (Auto) 89 % (31-73) Lymphocytes (%) (Auto) 4 % (24-48) Monocytes (%) (Auto) 6 % (0-9) Eosinophils (%) (Auto) 0 % (0-3) Basophils (%) (Auto) 1 % (0-3) Neutrophils # (Auto) 9.5 x10^3uL (1.8-7.7) Lymphocytes # (Auto) 0.4 x10^3/uL (1.0-4.8) Monocytes # (Auto) 0.6 x10^3/uL (0.0-1.1) Eosinophils # (Auto) 0.0 x10^3/uL (0.0-0.7) Basophils # (Auto) 0.1 x10^3/uL (0.0-0.2) Sodium Level 134 mmol/L (136-145) Potassium Level 3.5 mmol/L (3.5-5.1) Chloride Level 95 mmol/L (98-107) Carbon Dioxide Level 33 mmol/L (21-32) Anion Gap 6 (6-14) Blood Urea Nitrogen 9 mg/dL (8-26) Creatinine 0.9 mg/dL (0.7-1.3) Estimated GFR (Cockcroft-Gault) 84.2 BUN/Creatinine Ratio 10 (6-20) Glucose Level 168 mg/dL (70-99) Calcium Level 8.6 mg/dL (8.5-10.1) Magnesium Level 1.6 mg/dL (1.8-2.4) Total Bilirubin 0.3 mg/dL (0.2-1.0) Aspartate Amino Transf (AST/SGOT) 7 U/L (15-37) Alanine Aminotransferase (ALT/SGPT) 6 U/L (16-63) Alkaline Phosphatase 48 U/L (46-116) Total Protein 5.9 g/dL (6.4-8.2) Albumin 2.1 g/dL (3.4-5.0) Albumin/Globulin Ratio 0.6 (1.0-1.7) Thyroid Stimulating Hormone (TSH) 0.286 uIU/mL (0.358-3.74) Free Thyroxine 1.36 ng/dL (0.76-1.46) Free Triiodothyronine (T3) pg/mL 1.64 pg/mL (2.18-3.98) Micro 03/27/18 Blood Culture - Preliminary, Resulted NO GROWTH AFTER 2 DAY Objective Assessment Large left necrotic wound draining foul smelling drainage with underlying history of 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 Undergoing radiation Generalized weakness and dehydration on admission Anemia. Generalized debility. Hypokalemia. History of skin cancer. Immunosuppression, status post chemotherapy. Atrial fibrillation. Plan Plan of Care Discontinue po Zyvox and can d/c home on po Augmentin for 6 days Previously on Zosyn (03/27-03/29) Probiotics D/w Attending Co-Sign Attending Co-Sign The patient was seen and interviewed as well as examined at the bedside. The chart was reviewed. The case was discussed. Agree with the plan of care. POLO BAH APRN Mar 30, 2018 10:54 ZENON COOK MD Mar 30, 2018 13:19
[2018-03-30 11:00] VITALS: BP 123/63
--- NOTE | 2018-03-30 11:16 | CARD ---
MR#: [id number] Date of Study: 03/29/2018 Ordering Physician: KITTY CIFUENTES, Referring Physician: RAFAT ROWAN Tech: Patience Munroe APPROVED REPORT EXAM: Two-dimensional and M-mode echocardiogram with Doppler and color Doppler. Other Information Quality : FairHR: 120bpm INDICATION Atrial Fibrillation 2D DIMENSIONS RVDd3.0 (2.9-3.5cm)Left Atrium(2D)3.7 (1.6-4.0cm) IVSd0.9 (0.7-1.1cm)Aortic Root(2D)3.0 (2.0-3.7cm) LVDd4.8 (3.9-5.9cm)LVOT Diameter2.0 (1.8-2.4cm) PWd1.1 (0.7-1.1cm)LVDs3.5 (2.5-4.0cm) FS (%) 25.6 %SV52.9 ml LVEF(%)50.3 (>50%) Aortic Valve AoV Peak Maxim.154.1cm/sAoV VTI31.3cm AO Peak GR.9.5mmHgLVOT Peak Maxim.114.3cm/s AO Mean GR.5mmHgAVA (VMAX)2.40cm2 Mitral Valve MV E Wulusxwc62.3cm/sMV DECEL [id number] MV A Fcbhqrjw25.3cm/sE/A Ratio1.4 Pulmonary Valve PV Peak Iestuezl46.0cm/s Tricuspid Valve TR P. Fyejvvuj848io/sRAP [id number] TR Peak Gr.16uiAuFCHN65hwRl Pulmonary Vein S1 Rbxzaatm31.7cm/s LEFT VENTRICLE The left ventricle is normal size. There is borderline concentric left ventricular hypertrophy. The l eft ventricular systolic function is normal. The Ejection Fraction is 55-60%. There is normal LV segm ental wall motion. Diastolic function indeterminent due to Atril Fibrillation. RIGHT VENTRICLE The right ventricle is normal size. There is normal right ventricular wall thickness. The right ventr icular systolic function is normal. ATRIA The left atrium size is normal. The right atrium is borderline dilated. The interatrial septum is int act with no evidence for an atrial septal defect or patent foramen ovale as noted on 2-D or Doppler i maging. AORTIC VALVE The aortic valve is not well visualized. Doppler and Color Flow revealed no significant aortic regurg itation. There is no significant aortic valvular stenosis. MITRAL VALVE The mitral valve is thickened but opens well. There is no mitral valve stenosis. Doppler and Color-fl ow revealed mild mitral regurgitation. TRICUSPID VALVE The tricuspid valve is normal in structure and function. Doppler and Color Flow revealed mild tricusp id regurgitation. There is no tricuspid valve stenosis. PULMONIC VALVE The pulmonic valve is not well visualized. Doppler and Color Flow revealed no pulmonic valvular regur gitation. GREAT VESSELS The aortic root is normal in size. The IVC is dilated and collapses <50% with inspiration. PERICARDIAL EFFUSION There is no evidence of significant pericardial effusion. Critical Notification Critical Value: No <Conclusion> The left ventricular systolic function is normal. The Ejection Fraction is 55-60%. There is normal LV segmental wall motion. Mild mitral regurgitation. Mild tricuspid regurgitation. There is no evidence of significant pericardial effusion. Signed by : Jose Casas, Electronically Approved : 03/30/2018 11:15:50
--- NOTE | 2018-03-30 13:34 | PDOC ---
PROGRESS NOTES Subjective Subjective c/o of generalized weakness Objective Objective Vital Signs Date Time Temp Pulse Resp B/P (MAP) Pulse Ox O2 Delivery O2 Flow Rate FiO2 03/30/18 11:00 98.9 73 18 123/63 (83) 97 Room Air 98.9 Intake and Output 03/30/18 07:00 Intake Total 390 ml Output Total 1600 ml Balance -1210 ml Intake Oral 390 ml Output Urine Total 1600 ml Physical Exam Abdomen: Soft, No tenderness Heart: Regular rate (SR with bursts of AFIB RVR), Other (2/6 systolic murmur to LLS border) Extremities: No clubbing, No cyanosis, Other (trace LE edema) General: Alert, No acute distress HEENT: Other (left parotid CA) Lungs: Other (diminished bases) Psych/Mental Status: Mood NL Skin: Other (LFA and Left parotid SCC) Assessment Assessment 1. 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 On chemo and RT 2. Vomiting/weakness/odynophagia: per GI 3. PAFIB with episodes of RVR: Resolved after resuming beta blockers. 2-D echo showed normal LV systolic function. Plan for resuming Xarelto possibly at the time of discharge once active issues resolve. 4. CAD: stents in the past, clinically stable 5. HTN: controlled 6. HLP: Statins 7. Anemia of chronic disease Comment Review of Relevant I have reviewed the following items daniella (where applicable) has been applied. Labs Microbiology 03/27/18 Blood Culture - Preliminary, Resulted NO GROWTH AFTER 3 DAYS Medications Current Medications Amoxicillin/ Clavulanate Potassium (Augmentin 875/ 125mg) 1 tab BID PO Last administered on 03/30/18at 09:34; Start 03/29/18 at 21:00 Aspirin (Ecotrin) 81 mg DAILYWBKFT PO Last administered on 03/30/18at 09:35; Start 03/30/18 at 08:00 Atorvastatin Calcium (Lipitor) 20 mg QHS PO Last administered on 03/29/18at 20: 42; Start 03/29/18 at 21:00 Digoxin (Lanoxin) 500 mcg 1X ONCE IV Last administered on 03/29/18at 15:40; Start 03/29/18 at 15:30; Stop 03/29/18 at 15:31; Status DC Linezolid (Zyvox) 600 mg BID PO Last administered on 03/30/18at 09:34; Start at 21:00 Magnesium Sulfate 50 ml @ 25 mls/hr 1X ONCE IV Last administered on 03/29/18at 15:45; Start 03/29/18 at 16:00; Stop 03/29/18 at 17:59; Status DC Metoprolol Tartrate (Lopressor) 25 mg BID PO Last administered on 03/30/18at 09: 35; Start 03/29/18 at 15:15 Pantoprazole Sodium (Protonix) 40 mg DAILYAC PO Last administered on 03/30/18at 09:35; Start 03/30/18 at 07:30 Potassium Chloride (KCl Oral Soln) 20 meq 1X ONCE PEG Last administered on 03/29/18at 15:34; Start 03/29/18 at 16:00; Stop 03/29/18 at 16:01; Status DC Vitals/I & O Vital Sign - Last 24 Hours 03/29/18 03/29/18 03/29/18 03/29/18 15:00 15:39 15:40 19:47 Temp 98.0 97.5 98.0 97.5 Pulse 114 96 96 85 Resp 16 18 B/P (MAP) 139/62 (87) 139/62 139/62 143/57 (85) Pulse Ox 97 99 O2 Delivery Room Air Room Air 03/29/18 03/29/18 03/29/18 03/30/18 20:15 20:52 23:55 03:00 Temp 97.9 97.8 97.9 97.8 Pulse 85 83 62 Resp 18 18 B/P (MAP) 143/57 133/76 (95) 128/64 (85) Pulse Ox 96 94 O2 Delivery Room Air Room Air Room Air 03/30/18 03/30/18 03/30/18 03/30/18 07:00 07:00 09:35 10:08 Temp 97.7 97.7 Pulse 79 79 Resp 18 B/P (MAP) 131/68 (89) 131/68 Pulse Ox 92 92 O2 Delivery Room Air Room Air Room Air 03/30/18 11:00 Temp 98.9 98.9 Pulse 73 Resp 18 B/P (MAP) 123/63 (83) Pulse Ox 97 O2 Delivery Room Air Intake and Output 03/29/18 03/29/1818 15:00 23:00 07:00 Intake Total 50 ml 340 ml Output Total 500 ml 300 ml 800 ml Balance -450 ml 40 ml -800 ml JOSE E OLIVA MD Mar 30, 2018 13:34
[2018-03-30 15:00] VITALS: BP 141/69
[2018-03-30 19:37] VITALS: BP 149/67
[2018-03-30] MEDS: ATORVASTATIN CALCIUM 20 MG TABLET PO SCH (19:40)
[2018-03-30 23:06] VITALS: BP 119/67
[2018-03-31] MEDS: MORPHINE SULFATE 2 MG/ML VIAL. IV PRN ×3 (01:19→20:37)
[2018-03-31 03:24] VITALS: BP 154/71
[2018-03-31] MEDS: HYDROmorphone 2 MG/ML VIAL IV PRN ×3 (03:24→17:35)
[2018-03-31 07:00] VITALS: BP 141/70
[2018-03-31] MEDS: AMINO AC 3%/ELECTROLYTE/GLYCER 1,000 ML IV SCH ×2 (08:46→23:00)
[2018-03-31] MEDS: METOPROLOL TART IMMED RELEASE 25 MG TABLET. PO SCH ×2 (08:48→20:36)
[2018-03-31] MEDS: LIDOCAINE 2% VISCOUS 15 ML SOLUTION. SWSW SCH ×3 (08:48→16:30)
[2018-03-31] MEDS: LINEZOLID 600 MG TABLET PO SCH (08:48)
[2018-03-31] MEDS: AMOXICILLIN/K CLAV 875/125MG TABLET. PO SCH ×2 (08:48→20:37)
[2018-03-31] MEDS: PANTOPRAZOLE 40 MG TABLET.DR. PO SCH (08:49)
[2018-03-31] MEDS: ASPIRIN ENTERIC COATED 81 MG TABLET.DR. PO SCH (08:49)
--- NOTE | 2018-03-31 09:24 | PDOC ---
PROGRESS NOTES History of Present Illness History of Present Illness Assessment/Plan Assessment/Plan generalized weakness. 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 There is also increased bone destruction of the left zygomatic arch, left mastoid air cells, left temporal and left temporal calvarium with possible intracranial extent to the lateral aspect of the left middle cranial fossa. Progression of findings may be due to progression of neoplasm although also consideration of associated infection and osteomyelitis. chronic pain opoid dependence. HTN DNR reactive depression plan: iv zyvox, zosyn RT, onco following id FOLLOWING wound care following nutrition consult PPN , adat labs CXR pain control dvt ppx PTOT need verify home meds on palliative treatment with Opdivo PALLIATIVE CARE following for salvage determiner goals Vitals Vitals Vital Signs Date Time Temp Pulse Resp B/P (MAP) Pulse Ox O2 Delivery O2 Flow Rate FiO2 03/31/18 09:04 Room Air 03/31/18 08:48 75 141/70 03/31/18 07:00 97.5 20 97 97.5 Physical Exam Physical Exam GENERAL: Sitting on the side of the bed, tired appearance HEENT: Dressing over the left side of face. + odor Left Gao palsy changes present chronic, unable to close left eyelid completely due to same. LUNGS: Clear bilaterally. CARDIOVASCULAR: S1, S2. ABDOMEN: Soft, nontender. 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 Left arm dressing dry/intact Port - wo signs of complications General: Alert, No acute distress Heart: Regular rate, Other Lungs: Clear Abdomen: Soft, No tenderness Extremities: No clubbing, No cyanosis, Other (trace LE edema) Skin: Other (LFA and Left parotid SCC) Comment Review of Relevant I have reviewed the following items dainella (where applicable) has been applied. Labs Laboratory Tests Test 03/29/18 12:10 White Blood Count 10.6 x10^3/uL (4.0-11.0) Red Blood Count 2.57 x10^6/uL (4.30-5.70) Hemoglobin 8.9 g/dL (13.0-17.5) Hematocrit 24.8 % (39.0-53.0) Mean Corpuscular Volume 97 fL (79-100) Mean Corpuscular Hemoglobin 35 pg (25-35) Mean Corpuscular Hemoglobin Concent 36 g/dL (31-37) Red Cell Distribution Width 13.6 % (11.5-14.5) Platelet Count 240 x10^3/uL (140-400) Neutrophils (%) (Auto) 89 % (31-73) Lymphocytes (%) (Auto) 4 % (24-48) Monocytes (%) (Auto) 6 % (0-9) Eosinophils (%) (Auto) 0 % (0-3) Basophils (%) (Auto) 1 % (0-3) Neutrophils # (Auto) 9.5 x10^3uL (1.8-7.7) Lymphocytes # (Auto) 0.4 x10^3/uL (1.0-4.8) Monocytes # (Auto) 0.6 x10^3/uL (0.0-1.1) Eosinophils # (Auto) 0.0 x10^3/uL (0.0-0.7) Basophils # (Auto) 0.1 x10^3/uL (0.0-0.2) Sodium Level 134 mmol/L (136-145) Potassium Level 3.5 mmol/L (3.5-5.1) Chloride Level 95 mmol/L (98-107) Carbon Dioxide Level 33 mmol/L (21-32) Anion Gap 6 (6-14) Blood Urea Nitrogen 9 mg/dL (8-26) Creatinine 0.9 mg/dL (0.7-1.3) Estimated GFR (Cockcroft-Gault) 84.2 BUN/Creatinine Ratio 10 (6-20) Glucose Level 168 mg/dL (70-99) Calcium Level 8.6 mg/dL (8.5-10.1) Magnesium Level 1.6 mg/dL (1.8-2.4) Total Bilirubin 0.3 mg/dL (0.2-1.0) Aspartate Amino Transf (AST/SGOT) 7 U/L (15-37) Alanine Aminotransferase (ALT/SGPT) 6 U/L (16-63) Alkaline Phosphatase 48 U/L (46-116) Total Protein 5.9 g/dL (6.4-8.2) Albumin 2.1 g/dL (3.4-5.0) Albumin/Globulin Ratio 0.6 (1.0-1.7) Thyroid Stimulating Hormone (TSH) 0.286 uIU/mL (0.358-3.74) Free Thyroxine 1.36 ng/dL (0.76-1.46) Free Triiodothyronine (T3) pg/mL 1.64 pg/mL (2.18-3.98) Microbiology 03/27/18 Blood Culture - Preliminary, Resulted NO GROWTH AFTER 3 DAYS Medications Current Medications Amino Acids/ Glycerin/ Electrolytes 1,000 ml @ 80 mls/hr [id number] IV Last administered on 03/31/18at 08:46; Start 03/26/18 at 16:00 Levofloxacin/ Dextrose 150 ml @ 100 mls/hr Q24H IV Last administered on at 17:51; Start 03/26/18 at 16:00; Stop 03/27/18 at 09:01; Status DC Acetaminophen (Tylenol) 650 mg PRN Q6HRS PRN PO FEVER; Start 03/26/18 at 15:15 Ondansetron HCl (Zofran) 4 mg PRN Q6HRS PRN IV NAUSEA/VOMITING Last administered on 03/29/18at 11:01; Start 03/26/18 at 15:15 Morphine Sulfate (Morphine Sulfate) 2 mg PRN Q2HR PRN IV MODERATE TO SEVERE PAIN; Start 03/26/18 at 15:15; Stop 03/27/18 at 16:33; Status DC Tramadol HCl (Ultram) 50 mg PRN Q6HRS PRN PO MILD TO MODERATE PAIN; Start at 15:15 Docusate Sodium (Colace) 100 mg PRN DAILY PRN PO CONSTIPATION; Start 03/26/18 at 15:15 Oxycodone/ Acetaminophen (Percocet 10/325) 1 tab PRN Q6HRS PRN PO SEVERE PAIN Last administered on 03/29/18at 08:36; Start 03/26/18 at 15:15 Albuterol Sulfate (Ventolin Neb Soln) 2.5 mg PRN Q4HRS PRN NEB SHORTNESS OF BREATH; Start 03/26/18 at 15:15 Hydromorphone HCl (Dilaudid) 1 mg Q3HRS PRN IV MODERATE PAIN Last administered on 03/27/18at 01:39; Start 03/26/18 at 19:30; Stop 03/27/18 at 19:30; Status DC Hydromorphone HCl (Dilaudid) 2 mg Q3HRS PRN IV SEVERE PAIN Last administered on 03/27/18at 19:07; Start 03/26/18 at 19:30; Stop 03/27/18 at 19:33; Status DC Potassium Chloride (Klor-Con) 40 meq 1X ONCE PO Last administered on at 20:51; Start 03/26/18 at 19:30; Stop 03/26/18 at 19:35; Status DC Piperacillin Sod/ Tazobactam Sod 4.5 gm/Sodium Chloride 100 ml @ 200 mls/hr Q6HRS IV Last administered on 03/29/18at 12:06; Start 03/27/18 at 10:00; Stop 03/29/18 at 15:12; Status DC Linezolid/Dextrose 300 ml @ 300 mls/hr Q12HR IV Last administered on at 08:37; Start 03/27/18 at 10:00; Stop 03/29/18 at 15:12; Status DC Pantoprazole Sodium (PROTONIX VIAL for IV PUSH) 40 mg DAILYAC IVP Last administered on 03/29/18at 08:36; Start 03/27/18 at 11:30; Stop 03/29/18 at 18: 54; Status DC Lidocaine HCl (Viscous Lidocaine) 15 ml PRN TID PRN SWSW mouth/throat pain; Start 03/27/18 at 11:30; Stop 03/28/18 at 10:17; Status DC Lactobacillus Rhamnosus (Culturelle) 1 cap BID PO Last administered on at 21:34; Start 03/27/18 at 12:00; Stop 03/29/18 at 18:52; Status DC Morphine Sulfate (Morphine Sulfate) 4 mg PRN Q2HR PRN IV MODERATE PAIN Last administered on 03/31/18at 01:19; Start 03/27/18 at 16:45 Hydromorphone HCl (Dilaudid) 2 mg PRN Q3HRS PRN IV MODERATE PAIN Last administered on 03/30/18at 10:08; Start 03/27/18 at 19:30; Stop 03/30/18 at 12: 03; Status DC Hydromorphone HCl (Dilaudid) 2 mg PRN Q3HRS PRN IV SEVERE PAIN Last administered on 03/31/18 09:04; Start 03/27/18 at 19:45 Lidocaine HCl (Viscous Lidocaine) 15 ml TIDAC SWSW Last administered on 08:48; Start 03/28/18 at 11:30 Amoxicillin/ Clavulanate Potassium (Augmentin 875/ 125mg) 1 tab BID PO Last administered on 03/31/18 08:48; Start 03/29/18 at 21:00 Linezolid (Zyvox) 600 mg BID PO Last administered on 03/31/18 08:48; Start at 21:00 Magnesium Sulfate 50 ml @ 25 mls/hr 1X ONCE IV Last administered on 03/29/18 15:45; Start 03/29/18 at 16:00; Stop 03/29/18 at 17:59; Status DC Metoprolol Tartrate (Lopressor) 25 mg BID PO Last administered on 03/31/18 08: 48; Start 03/29/18 at 15:15 Aspirin (Ecotrin) 81 mg DAILYWBKFT PO Last administered on 03/31/18 08:49; Start 03/30/18 at 08:00 Potassium Chloride (KCl Oral Soln) 20 meq 1X ONCE PEG Last administered on 15:34; Start 03/29/18 at 16:00; Stop 03/29/18 at 16:01; Status DC Atorvastatin Calcium (Lipitor) 20 mg QHS PO Last administered on 03/30/18 19: 40; Start 03/29/18 at 21:00 Digoxin (Lanoxin) 500 mcg 1X ONCE IV Last administered on 03/29/18 15:40; Start 03/29/18 at 15:30; Stop 03/29/18 at 15:31; Status DC Pantoprazole Sodium (Protonix) 40 mg DAILYAC PO Last administered on 03/31/18 08:49; Start 03/30/18 at 07:30 Active Scripts Active Augmentin 875-125 Tablet (Amoxicillin/Potassium Clav) 1 Each Tablet 1 Tab PO BID Polyethylene Glycol 3350 17 Gm Powd.pack 17 Gm PO PRN DAILY PRN Colace (Docusate Sodium) 100 Mg Capsule 100 Mg PO BID Reported Xarelto (Rivaroxaban) 20 Mg Tablet 20 Mg PO DAILYWSUP Zofran (Ondansetron Hcl) 8 Mg Tablet 8 Mg PO BID PRN Morphine Sulfate 15 Mg Tablet 15 Mg PO BID Ambien (Zolpidem Tartrate) 5 Mg Tablet 1 Tab PO QHS PRN Potassium Chloride 20 Meq Tablet.er 20 Meq PO DAILY Metoprolol Tartrate 50 Mg Tablet 25 Mg PO HS Simvastatin 20 Mg Tablet 20 Mg PO HS Percocet 10-325 Mg Tablet (Oxycodone/Acetaminophen) 1 Each Tablet 1 Tab PO PRN Q6HRS PRN Vitals/I & O Vital Sign - Last 24 Hours 03/30/18 03/30/18 03/30/18 03/30/18 09:35 10:08 11:00 15:00 Temp 98.9 98.9 98.9 98.9 Pulse 79 73 79 Resp 18 18 B/P (MAP) 131/68 123/63 (83) 141/69 (93) Pulse Ox 92 97 97 O2 Delivery Room Air Room Air Room Air 03/30/18 03/30/18 03/30/18 03/30/18 15:40 19:37 19:40 19:44 Temp 100.9 100.9 Pulse 78 78 Resp 20 B/P (MAP) 149/67 (94) 149/67 Pulse Ox 98 O2 Delivery Room Air Room Air Room Air 03/30/18 03/30/18 03/30/18 03/31/18 20:00 22:23 23:06 01:19 Temp 100.2 100.2 Pulse 77 Resp 16 B/P (MAP) 119/67 (84) Pulse Ox 95 O2 Delivery Room Air Room Air Room Air Room Air 03/31/18 03/31/18 03/31/18 03/31/18 01:51 03:24 03:24 05:14 Temp 99.7 99.7 Pulse 78 Resp 20 B/P (MAP) 154/71 (98) Pulse Ox 98 O2 Delivery Room Air Room Air Room Air Room Air 03/31/18 03/31/18 03/31/18 07:00 08:48 09:04 Temp 97.5 97.5 Pulse 75 75 Resp 20 B/P (MAP) 141/70 (93) 141/70 Pulse Ox 97 O2 Delivery Room Air Room Air Intake and Output 03/30/18 03/30/18 03/31/18 15:00 23:00 07:00 Intake Total 0 ml 120 ml Output Total 1900 ml Balance 0 ml -1780 ml Nutrition Consultation Dietary Evaluation: Recommendations by RD: Increase Calorie Intake, Protein supplementation, PPN/ TPN Comments: continue mech soft diet, pt tolerating continue ensure tid continue PPN until po intake improves Expected Outcomes/Goals: to meet > 75% est nutr needs via po intake- not met, goal ongoing Interpretation of weight loss: >7.5% in 3 months Malnutrition Findings: Food and Nutrition Intake (Sev: <50% est energy req 5days Weight Status: Appropriate SUSAN GREENE MD Mar 31, 2018 09:24
[2018-03-31 10:15] LABS: BASO # 0.1 x10^3/uL (0.0-0.2); BASO % 1 % (0-3); EOS % 1 % (0-3); HEMATOCRIT 23.7 % (39.0-53.0); HEMOGLOBIN 8.5 g/dL (13.0-17.5); LYMPH # 0.4 x10^3/uL (1.0-4.8); LYMPH % 5 % (24-48); MEAN CORPUSCULAR HEMOGLOBIN 35 pg (25-35); MEAN CORPUSCULAR HGB CONC 36 g/dL (31-37); MEAN CORPUSCULAR VOLUME 96 fL (79-100); MONO # 0.7 x10^3/uL (0.0-1.1); MONO % 7 % (0-9); NEUT # 8.2 x10^3uL (1.8-7.7); NEUT % 87 % (31-73); PLATELET COUNT 226 x10^3/uL (140-400); RED BLOOD COUNT 2.46 x10^6/uL (4.30-5.70); RED CELL DISTRIBUTION WIDTH 13.4 % (11.5-14.5); WHITE BLOOD COUNT 9.4 x10^3/uL (4.0-11.0)
[2018-03-31 10:31] LABS: CALCIUM 8.8 mg/dL (8.5-10.1); CREATININE 0.7 mg/dL (0.7-1.3); GFR 112.5; POTASSIUM 4.2 mmol/L (3.5-5.1)
[2018-03-31 10:41] VITALS: BP 153/75
--- NOTE | 2018-03-31 10:56 | PDOC ---
PROGRESS NOTES Subjective Subjective c/o of generalized weakness Objective Objective Vital Signs Date Time Temp Pulse Resp B/P (MAP) Pulse Ox O2 Delivery O2 Flow Rate FiO2 03/31/18 10:41 97.7 81 20 153/75 (101) 96 Room Air 97.7 Intake and Output 03/31/18 07:00 Intake Total 120 ml Output Total 1900 ml Balance -1780 ml Intake Oral 120 ml Output Urine Total 1900 ml Physical Exam Abdomen: Soft, No tenderness Heart: Regular rate, Other Extremities: No clubbing, No cyanosis, Other (trace LE edema) General: Alert, No acute distress HEENT: Other (left parotid CA) Lungs: Other (diminished bases) Psych/Mental Status: Mood NL Skin: Other (LFA and Left parotid SCC) Assessment Assessment 1. 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 On chemo and RT 2. Vomiting/weakness/odynophagia: per GI 3. PAFIB with episodes of RVR: Resolved after resuming beta blockers. 2-D echo showed normal LV systolic function. Plan for resuming Xarelto possibly at the time of discharge once active issues resolve. 4. CAD: stents in the past, clinically stable 5. HTN: controlled 6. HLP: Statins 7. Anemia of chronic disease Follow-up with primary radiocommunications technician upon discharge Comment Review of Relevant I have reviewed the following items daniella (where applicable) has been applied. Labs Laboratory Tests Test 03/31/18 10:00 White Blood Count 9.4 x10^3/uL (4.0-11.0) Red Blood Count 2.46 x10^6/uL (4.30-5.70) Hemoglobin 8.5 g/dL (13.0-17.5) Hematocrit 23.7 % (39.0-53.0) Mean Corpuscular Volume 96 fL (79-100) Mean Corpuscular Hemoglobin 35 pg (25-35) Mean Corpuscular Hemoglobin Concent 36 g/dL (31-37) Red Cell Distribution Width 13.4 % (11.5-14.5) Platelet Count 226 x10^3/uL (140-400) Neutrophils (%) (Auto) 87 % (31-73) Lymphocytes (%) (Auto) 5 % (24-48) Monocytes (%) (Auto) 7 % (0-9) Eosinophils (%) (Auto) 1 % (0-3) Basophils (%) (Auto) 1 % (0-3) Neutrophils # (Auto) 8.2 x10^3uL (1.8-7.7) Lymphocytes # (Auto) 0.4 x10^3/uL (1.0-4.8) Monocytes # (Auto) 0.7 x10^3/uL (0.0-1.1) Eosinophils # (Auto) 0.0 x10^3/uL (0.0-0.7) Basophils # (Auto) 0.1 x10^3/uL (0.0-0.2) Sodium Level 132 mmol/L (136-145) Potassium Level 4.2 mmol/L (3.5-5.1) Chloride Level 95 mmol/L (98-107) Carbon Dioxide Level 34 mmol/L (21-32) Anion Gap 3 (6-14) Blood Urea Nitrogen 11 mg/dL (8-26) Creatinine 0.7 mg/dL (0.7-1.3) Estimated GFR (Cockcroft-Gault) 112.5 Glucose Level 140 mg/dL (70-99) Calcium Level 8.8 mg/dL (8.5-10.1) Microbiology 03/27/18 Blood Culture - Preliminary, Resulted NO GROWTH AFTER 3 DAYS Vitals/I & O Vital Sign - Last 24 Hours 03/30/18 03/30/18 03/30/18 03/30/18 11:00 15:00 15:40 19:37 Temp 98.9 98.9 100.9 98.9 98.9 100.9 Pulse 73 79 78 Resp 18 18 20 B/P (MAP) 123/63 (83) 141/69 (93) 149/67 (94) Pulse Ox 97 97 98 O2 Delivery Room Air Room Air Room Air Room Air 03/30/18 03/30/18 03/30/18 03/30/18 19:40 19:44 20:00 22:23 Pulse 78 B/P (MAP) 149/67 O2 Delivery Room Air Room Air Room Air 03/30/18 03/31/18 03/31/18 03/31/18 23:06 01:19 01:51 03:24 Temp 100.2 100.2 Pulse 77 Resp 16 B/P (MAP) 119/67 (84) Pulse Ox 95 O2 Delivery Room Air Room Air Room Air Room Air 03/31/18 03/31/18 03/31/18 03/31/18 03:24 07:00 08:48 09:04 Temp 99.7 97.5 99.7 97.5 Pulse 78 75 75 Resp 20 20 B/P (MAP) 154/71 (98) 141/70 (93) 141/70 Pulse Ox 98 97 O2 Delivery Room Air Room Air Room Air 03/31/18 03/31/18 09:46 10:41 Temp 97.7 97.7 Pulse 81 Resp 20 B/P (MAP) 153/75 (101) Pulse Ox 97 96 O2 Delivery Room Air Room Air Intake and Output 03/30/18 03/30/18 03/31/18 15:00 23:00 07:00 Intake Total 0 ml 120 ml Output Total 1900 ml Balance 0 ml -1780 ml JOSE E OLIVA MD Mar 31, 2018 10:56
[2018-03-31 14:44] VITALS: BP 145/72
[2018-03-31] MEDS ORDERED: guaiFENesin DM 200MG/20MG 10 ML SYRUP PO PRN (16:45)
[2018-03-31 19:44] VITALS: BP 134/68
[2018-03-31] MEDS: ATORVASTATIN CALCIUM 20 MG TABLET PO SCH (20:37)
[2018-03-31 23:09] VITALS: BP 132/67
[2018-04-01 03:35] VITALS: BP 145/74
[2018-04-01] MEDS: MORPHINE SULFATE 2 MG/ML VIAL. IV PRN ×3 (04:41→20:26)
[2018-04-01 07:00] VITALS: BP 146/73
[2018-04-01] MEDS: AMOXICILLIN/K CLAV 875/125MG TABLET. PO SCH ×2 (09:51→20:24)
[2018-04-01] MEDS: PANTOPRAZOLE 40 MG TABLET.DR. PO SCH (09:51)
[2018-04-01] MEDS: AMINO AC 3%/ELECTROLYTE/GLYCER 1,000 ML IV SCH ×2 (09:51→23:58)
[2018-04-01] MEDS: METOPROLOL TART IMMED RELEASE 25 MG TABLET. PO SCH ×2 (09:51→20:25)
[2018-04-01] MEDS: ASPIRIN ENTERIC COATED 81 MG TABLET.DR. PO SCH (09:51)
[2018-04-01] MEDS: LIDOCAINE 2% VISCOUS 15 ML SOLUTION. SWSW SCH ×3 (09:52→16:30)
--- NOTE | 2018-04-01 10:01 | PDOC ---
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, he had worsened infection on cisplatin and disease and infection have continued to progress, he's on second line immunotherapy, I really have nothing reasonable to offer him after this, he would like to give it a full 12 weeks to see how he tolerates it to see if we can get some disease response, we' ll go ahead and give one more trial of immunotherapy and reevaluate if we need to consider hospice, he does not want hospice at this time, but will continue with wound care and follow-up with ID Squamous cell carcinoma: 1 more cycle of immunotherapy to be given this week with reevaluation afterwards Left ear infection: He continues on Augmentin and follow-up with infectious diseases frequently Weakness: Recommend aggressive nutrition Disposition: Fine to leave today after radiotherapy and hopefully wound care will see him 1 time prior to discharge Thank you kindly and please do not hesitate to call with questions. OBJECTIVE Vital Signs Vital Signs Date Time Temp Pulse Resp B/P (MAP) Pulse Ox O2 Delivery O2 Flow Rate FiO2 04/01/18 07:00 98.1 83 20 146/73 (97) 96 Room Air 98.1 04/01/18 05:15 17 Room Air 04/01/18 04:41 17 Room Air 04/01/18 03:35 99.5 86 18 145/74 (97) 96 Room Air 99.5 03/31/18 23:09 99.0 75 20 132/67 (88) 98 Room Air 99.0 03/31/18 20:37 17 Room Air 03/31/18 20:36 89 134/68 03/31/18 20:00 Room Air 03/31/18 19:44 98.6 89 16 134/68 (90) 95 Room Air 98.6 03/31/18 17:35 Room Air 03/31/18 15:41 96 Room Air 03/31/18 14:44 97.5 75 20 145/72 (96) 96 Room Air 97.5 03/31/18 10:41 97.7 81 20 153/75 (101) 96 Room Air 97.7 I & O Intake and Output 04/01/18 07:00 Intake Total 1010 ml Output Total 1402 ml Balance -392 ml Intake Oral 1010 ml Output Urine Total 1400 ml Stool Total 2 ml # Voids 1 # Bowel Movements 2 COMMENT Lab Laboratory Tests Test 03/31/18 10:00 White Blood Count 9.4 x10^3/uL (4.0-11.0) Red Blood Count 2.46 x10^6/uL (4.30-5.70) Hemoglobin 8.5 g/dL (13.0-17.5) Hematocrit 23.7 % (39.0-53.0) Mean Corpuscular Volume 96 fL (79-100) Mean Corpuscular Hemoglobin 35 pg (25-35) Mean Corpuscular Hemoglobin Concent 36 g/dL (31-37) Red Cell Distribution Width 13.4 % (11.5-14.5) Platelet Count 226 x10^3/uL (140-400) Neutrophils (%) (Auto) 87 % (31-73) Lymphocytes (%) (Auto) 5 % (24-48) Monocytes (%) (Auto) 7 % (0-9) Eosinophils (%) (Auto) 1 % (0-3) Basophils (%) (Auto) 1 % (0-3) Neutrophils # (Auto) 8.2 x10^3uL (1.8-7.7) Lymphocytes # (Auto) 0.4 x10^3/uL (1.0-4.8) Monocytes # (Auto) 0.7 x10^3/uL (0.0-1.1) Eosinophils # (Auto) 0.0 x10^3/uL (0.0-0.7) Basophils # (Auto) 0.1 x10^3/uL (0.0-0.2) Sodium Level 132 mmol/L (136-145) Potassium Level 4.2 mmol/L (3.5-5.1) Chloride Level 95 mmol/L (98-107) Carbon Dioxide Level 34 mmol/L (21-32) Anion Gap 3 (6-14) Blood Urea Nitrogen 11 mg/dL (8-26) Creatinine 0.7 mg/dL (0.7-1.3) Estimated GFR (Cockcroft-Gault) 112.5 Glucose Level 140 mg/dL (70-99) Calcium Level 8.8 mg/dL (8.5-10.1) Nutrition Consultation Dietary Evaluation: Recommendations by RD: Increase Calorie Intake, Protein supplementation, PPN/ TPN Comments: continue mech soft diet, pt tolerating continue ensure tid continue PPN at this time Expected Outcomes/Goals: to meet > 75% est nutr needs via po intake- met at times, goal ongoing Interpretation of weight loss: >7.5% in 3 months Malnutrition Findings: Food and Nutrition Intake (Sev: <50% est energy req 5days Weight Status: Appropriate IGNACIO HAM MD Apr 01, 2018 10:01
[2018-04-01 11:00] VITALS: BP 138/73
[2018-04-01] MEDS: HYDROmorphone 2 MG/ML VIAL IV PRN ×2 (11:54→23:56)
--- NOTE | 2018-04-01 12:01 | PDOC ---
PROGRESS NOTES History of Present Illness History of Present Illness Assessment/Plan Assessment/Plan generalized weakness. 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 There is also increased bone destruction of the left zygomatic arch, left mastoid air cells, left temporal and left temporal calvarium with possible intracranial extent to the lateral aspect of the left middle cranial fossa. Progression of findings may be due to progression of neoplasm although also consideration of associated infection and osteomyelitis. chronic pain opoid dependence. HTN DNR reactive depression plan: iv zyvox, zosyn RT, onco following id FOLLOWING wound care following nutrition consult PPN , adat labs CXR pain control still needs iv morphine frequently dvt ppx PTOT cont home meds on palliative treatment with Opdivo PALLIATIVE CARE following for intermediate card tender goals Vitals Vitals Vital Signs Date Time Temp Pulse Resp B/P (MAP) Pulse Ox O2 Delivery O2 Flow Rate FiO2 04/01/18 11:54 95 Room Air 04/01/18 11:00 97.5 84 24 138/73 (94) 97.5 Physical Exam Physical Exam GENERAL: Sitting on the side of the bed, tired appearance HEENT: Dressing over the left side of face. + odor Left Gao palsy changes present chronic, unable to close left eyelid completely due to same. LUNGS: Clear bilaterally. CARDIOVASCULAR: S1, S2. ABDOMEN: Soft, nontender. HEALTH COMMISSIONER: Awake, slow responses SKIN: without rash. Left arm dressing dry/intact Port - wo signs of complications General: Alert, Cooperative, No acute distress, mild distress Heart: Regular rate, Normal S1, Normal S2, Other Lungs: Clear Abdomen: Soft, No tenderness Extremities: No clubbing, No cyanosis, Other (trace LE edema) Skin: Other (LFA and Left parotid SCC large defect see picture) Comment Review of Relevant I have reviewed the following items daniella (where applicable) has been applied. Labs Laboratory Tests Test 03/31/18 10:00 White Blood Count 9.4 x10^3/uL (4.0-11.0) Red Blood Count 2.46 x10^6/uL (4.30-5.70) Hemoglobin 8.5 g/dL (13.0-17.5) Hematocrit 23.7 % (39.0-53.0) Mean Corpuscular Volume 96 fL (79-100) Mean Corpuscular Hemoglobin 35 pg (25-35) Mean Corpuscular Hemoglobin Concent 36 g/dL (31-37) Red Cell Distribution Width 13.4 % (11.5-14.5) Platelet Count 226 x10^3/uL (140-400) Neutrophils (%) (Auto) 87 % (31-73) Lymphocytes (%) (Auto) 5 % (24-48) Monocytes (%) (Auto) 7 % (0-9) Eosinophils (%) (Auto) 1 % (0-3) Basophils (%) (Auto) 1 % (0-3) Neutrophils # (Auto) 8.2 x10^3uL (1.8-7.7) Lymphocytes # (Auto) 0.4 x10^3/uL (1.0-4.8) Monocytes # (Auto) 0.7 x10^3/uL (0.0-1.1) Eosinophils # (Auto) 0.0 x10^3/uL (0.0-0.7) Basophils # (Auto) 0.1 x10^3/uL (0.0-0.2) Sodium Level 132 mmol/L (136-145) Potassium Level 4.2 mmol/L (3.5-5.1) Chloride Level 95 mmol/L (98-107) Carbon Dioxide Level 34 mmol/L (21-32) Anion Gap 3 (6-14) Blood Urea Nitrogen 11 mg/dL (8-26) Creatinine 0.7 mg/dL (0.7-1.3) Estimated GFR (Cockcroft-Gault) 112.5 Glucose Level 140 mg/dL (70-99) Calcium Level 8.8 mg/dL (8.5-10.1) Microbiology 03/27/18 Blood Culture - Preliminary, Resulted NO GROWTH AFTER 4 DAYS Medications Current Medications Amino Acids/ Glycerin/ Electrolytes 1,000 ml @ 80 mls/hr [id number] IV Last administered on 04/01/18at 09:51; Start 03/26/18 at 16:00 Levofloxacin/ Dextrose 150 ml @ 100 mls/hr Q24H IV Last administered on at 17:51; Start 03/26/18 at 16:00; Stop 03/27/18 at 09:01; Status DC Acetaminophen (Tylenol) 650 mg PRN Q6HRS PRN PO FEVER; Start 03/26/18 at 15:15 Ondansetron HCl (Zofran) 4 mg PRN Q6HRS PRN IV NAUSEA/VOMITING Last administered on 03/29/18at 11:01; Start 03/26/18 at 15:15 Morphine Sulfate (Morphine Sulfate) 2 mg PRN Q2HR PRN IV MODERATE TO SEVERE PAIN; Start 03/26/18 at 15:15; Stop 03/27/18 at 16:33; Status DC Tramadol HCl (Ultram) 50 mg PRN Q6HRS PRN PO MILD TO MODERATE PAIN; Start at 15:15 Docusate Sodium (Colace) 100 mg PRN DAILY PRN PO CONSTIPATION; Start 03/26/18 at 15:15 Oxycodone/ Acetaminophen (Percocet 10/325) 1 tab PRN Q6HRS PRN PO SEVERE PAIN Last administered on 03/29/18at 08:36; Start 03/26/18 at 15:15 Albuterol Sulfate (Ventolin Neb Soln) 2.5 mg PRN Q4HRS PRN NEB SHORTNESS OF BREATH; Start 03/26/18 at 15:15 Hydromorphone HCl (Dilaudid) 1 mg Q3HRS PRN IV MODERATE PAIN Last administered on 03/27/18at 01:39; Start 03/26/18 at 19:30; Stop 03/27/18 at 19:30; Status DC Hydromorphone HCl (Dilaudid) 2 mg Q3HRS PRN IV SEVERE PAIN Last administered on 03/27/18at 19:07; Start 03/26/18 at 19:30; Stop 03/27/18 at 19:33; Status DC Potassium Chloride (Klor-Con) 40 meq 1X ONCE PO Last administered on at 20:51; Start 03/26/18 at 19:30; Stop 03/26/18 at 19:35; Status DC Piperacillin Sod/ Tazobactam Sod 4.5 gm/Sodium Chloride 100 ml @ 200 mls/hr Q6HRS IV Last administered on 03/29/18at 12:06; Start 03/27/18 at 10:00; Stop 03/29/18 at 15:12; Status DC Linezolid/Dextrose 300 ml @ 300 mls/hr Q12HR IV Last administered on at 08:37; Start 03/27/18 at 10:00; Stop 03/29/18 at 15:12; Status DC Pantoprazole Sodium (PROTONIX VIAL for IV PUSH) 40 mg DAILYAC IVP Last administered on 03/29/18at 08:36; Start 03/27/18 at 11:30; Stop 03/29/18 at 18: 54; Status DC Lidocaine HCl (Viscous Lidocaine) 15 ml PRN TID PRN SWSW mouth/throat pain; Start 03/27/18 at 11:30; Stop 03/28/18 at 10:17; Status DC Lactobacillus Rhamnosus (Culturelle) 1 cap BID PO Last administered on at 21:34; Start 03/27/18 at 12:00; Stop 03/29/18 at 18:52; Status DC Morphine Sulfate (Morphine Sulfate) 4 mg PRN Q2HR PRN IV MODERATE PAIN Last administered on 04/01/18at 10:01; Start 03/27/18 at 16:45 Hydromorphone HCl (Dilaudid) 2 mg PRN Q3HRS PRN IV MODERATE PAIN Last administered on 03/30/18at 10:08; Start 03/27/18 at 19:30; Stop 03/30/18 at 12: 03; Status DC Hydromorphone HCl (Dilaudid) 2 mg PRN Q3HRS PRN IV SEVERE PAIN Last administered on 04/01/18at 11:54; Start 03/27/18 at 19:45 Lidocaine HCl (Viscous Lidocaine) 15 ml TIDAC SWSW Last administered on at 11:30; Start 03/28/18 at 11:30 Amoxicillin/ Clavulanate Potassium (Augmentin 875/ 125mg) 1 tab BID PO Last administered on 04/01/18at 09:51; Start 03/29/18 at 21:00 Linezolid (Zyvox) 600 mg BID PO Last administered on 03/31/18at 08:48; Start at 21:00; Stop 03/31/18 at 15:34; Status DC Magnesium Sulfate 50 ml @ 25 mls/hr 1X ONCE IV Last administered on 03/29/18at 15:45; Start 03/29/18 at 16:00; Stop 03/29/18 at 17:59; Status DC Metoprolol Tartrate (Lopressor) 25 mg BID PO Last administered on 04/01/18 09: 51; Start 03/29/18 at 15:15 Aspirin (Ecotrin) 81 mg DAILYWBKFT PO Last administered on 04/01/18 09:51; Start 03/30/18 at 08:00 Potassium Chloride (KCl Oral Soln) 20 meq 1X ONCE PEG Last administered on 03/29/18at 15:34; Start 03/29/18 at 16:00; Stop 03/29/18 at 16:01; Status DC Atorvastatin Calcium (Lipitor) 20 mg QHS PO Last administered on 03/31/18at 20: 37; Start 03/29/18 at 21:00 Digoxin (Lanoxin) 500 mcg 1X ONCE IV Last administered on 03/29/18at 15:40; Start 03/29/18 at 15:30; Stop 03/29/18 at 15:31; Status DC Pantoprazole Sodium (Protonix) 40 mg DAILYAC PO Last administered on 04/01/18 09:51; Start 03/30/18 at 07:30 Guaifenesin (Robitussin Dm) 10 ml PRN Q6HRS PRN PO COUGH; Start 03/31/18 at 16: 45 Active Scripts Active Augmentin 875-125 Tablet (Amoxicillin/Potassium Clav) 1 Each Tablet 1 Tab PO BID Polyethylene Glycol 3350 17 Gm Powd.pack 17 Gm PO PRN DAILY PRN Colace (Docusate Sodium) 100 Mg Capsule 100 Mg PO BID Reported Xarelto (Rivaroxaban) 20 Mg Tablet 20 Mg PO DAILYWSUP Zofran (Ondansetron Hcl) 8 Mg Tablet 8 Mg PO BID PRN Morphine Sulfate 15 Mg Tablet 15 Mg PO BID Ambien (Zolpidem Tartrate) 5 Mg Tablet 1 Tab PO QHS PRN Potassium Chloride 20 Meq Tablet.er 20 Meq PO DAILY Metoprolol Tartrate 50 Mg Tablet 25 Mg PO HS Simvastatin 20 Mg Tablet 20 Mg PO HS Percocet 10-325 Mg Tablet (Oxycodone/Acetaminophen) 1 Each Tablet 1 Tab PO PRN Q6HRS PRN Vitals/I & O Vital Sign - Last 24 Hours 03/31/18 03/31/18 03/31/18 03/31/18 14:44 15:41 17:35 19:44 Temp 97.5 98.6 97.5 98.6 Pulse 75 89 Resp 20 16 B/P (MAP) 145/72 (96) 134/68 (90) Pulse Ox 96 96 95 O2 Delivery Room Air Room Air Room Air Room Air 03/31/18 03/31/18 03/31/18 03/31/18 20:00 20:36 20:37 23:09 Temp 99.0 99.0 Pulse 89 75 Resp 17 20 B/P (MAP) 134/68 132/67 (88) Pulse Ox 98 O2 Delivery Room Air Room Air Room Air 04/01/18 04/01/18 04/01/18 04/01/18 03:35 04:41 05:15 07:00 Temp 99.5 98.1 99.5 98.1 Pulse 86 83 Resp 18 17 17 20 B/P (MAP) 145/74 (97) 146/73 (97) Pulse Ox 96 96 O2 Delivery Room Air Room Air Room Air 04/01/18 04/01/18 04/01/18 04/01/18 09:51 10:01 11:00 11:52 Temp 97.5 97.5 Pulse 83 84 Resp 24 B/P (MAP) 146/73 138/73 (94) Pulse Ox 96 95 95 O2 Delivery Room Air Room Air Room Air 04/01/18 11:54 Pulse Ox 95 O2 Delivery Room Air Intake and Output 03/31/18 03/31/18 04/01/18 15:00 23:00 07:00 Intake Total 800 ml 210 ml Output Total 802 ml 600 ml Balance -2 ml -390 ml Nutrition Consultation Dietary Evaluation: Recommendations by RD: Increase Calorie Intake, Protein supplementation, PPN/ TPN Comments: continue mech soft diet, pt tolerating continue ensure tid continue PPN at this time Expected Outcomes/Goals: to meet > 75% est nutr needs via po intake- met at times, goal ongoing Interpretation of weight loss: >7.5% in 3 months Malnutrition Findings: Food and Nutrition Intake (Sev: <50% est energy req 5days Weight Status: Appropriate SUSAN GREENE MD Apr 01, 2018 12:01
--- NOTE | 2018-04-01 13:44 | PDOC ---
Subjective: Subjective: Wants to go home - has to pay rent tomorrow, says he has to do it. Eating and swallowing better - will tell me ate part of lunch and shared part. Lidocaine helps. No vomiting. Objective: Vital Signs: Vital Signs Date Time Temp Pulse Resp B/P (MAP) Pulse Ox O2 Delivery O2 Flow Rate FiO2 04/01/18 12:56 95 Room Air 04/01/18 11:00 97.5 84 24 138/73 (94) 97.5 PE: GEN: NAD HEENT: left facial wound LUNGS: room air HEART: RRR ABD: S/ND/NT NEURO/PSYCH: A & O 3 A/P: Left parotid SCC w/ infection, painful swallowing -- Tolerating at least some PO - he is anxious to be discharged. ZEB CAMPBELL Apr 01, 2018 13:44
[2018-04-01 15:00] VITALS: BP 140/68
[2018-04-01 19:05] VITALS: BP 141/73
[2018-04-01] MEDS: oxyCODONE/APAP 10/325 1 TAB TABLET PO PRN (20:25)
[2018-04-01] MEDS: ATORVASTATIN CALCIUM 20 MG TABLET PO SCH (20:25)
[2018-04-01 23:05] VITALS: BP 119/52
[2018-04-02 03:05] VITALS: BP 132/63
[2018-04-02] MEDS: MORPHINE SULFATE 2 MG/ML VIAL. IV PRN ×3 (06:12→15:12)
[2018-04-02 06:14] LABS: BASO # 0.1 x10^3/uL (0.0-0.2); BASO % 1 % (0-3); EOS # 0.2 x10^3/uL (0.0-0.7); EOS % 1 % (0-3); HEMATOCRIT 25.6 % (39.0-53.0); HEMOGLOBIN 9.1 g/dL (13.0-17.5); LYMPH # 0.5 x10^3/uL (1.0-4.8); LYMPH % 4 % (24-48); MEAN CORPUSCULAR HEMOGLOBIN 34 pg (25-35); MEAN CORPUSCULAR HGB CONC 36 g/dL (31-37); MEAN CORPUSCULAR VOLUME 96 fL (79-100); MONO % 8 % (0-9); NEUT # 10.6 x10^3uL (1.8-7.7); NEUT % 86 % (31-73); PLATELET COUNT 258 x10^3/uL (140-400); RED BLOOD COUNT 2.67 x10^6/uL (4.30-5.70); RED CELL DISTRIBUTION WIDTH 13.6 % (11.5-14.5); WHITE BLOOD COUNT 12.3 x10^3/uL (4.0-11.0)
[2018-04-02] MEDS: oxyCODONE/APAP 10/325 1 TAB TABLET PO PRN (06:14)
[2018-04-02 06:35] LABS: ALBUMIN 2.2 g/dL (3.4-5.0); ALBUMIN/GLOBULIN RATIO 0.5 (1.0-1.7); CREATININE 0.7 mg/dL (0.7-1.3); GFR 112.5; POTASSIUM 4.2 mmol/L (3.5-5.1); TOTAL BILIRUBIN 0.3 mg/dL (0.2-1.0); TOTAL PROTEIN 6.6 g/dL (6.4-8.2)
[2018-04-02 07:00] VITALS: BP 123/100
[2018-04-02] MEDS: LIDOCAINE 2% VISCOUS 15 ML SOLUTION. SWSW SCH ×2 (07:55→11:30)
--- NOTE | 2018-04-02 07:57 | PDOC ---
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 I let him know if he needs to spend this much time in the hospital than his performance status precludes any further tx from us at all...we'll give one more try w/ tx on sunday. Squamous cell carcinoma: 1 more cycle of immunotherapy to be given sunday with reevaluation afterwards Left ear infection: He continues on Augmentin and follow-up with infectious diseases frequently Weakness: Recommend aggressive nutrition, may need PEG tube down the road if dsyphagia from tumor progresses, has lidocaine prn Disposition: Fine to leave today after radiotherapy today Thank you kindly and please do not hesitate to call with questions. OBJECTIVE Vital Signs Vital Signs Date Time Temp Pulse Resp B/P (MAP) Pulse Ox O2 Delivery O2 Flow Rate FiO2 04/02/18 03:05 97.5 74 16 132/63 (86) 97 Room Air 97.5 04/01/18 23:05 97.7 82 18 119/52 (74) 97 Room Air 97.7 04/01/18 20:25 84 141/73 04/01/18 20:15 Room Air 04/01/18 19:05 97.7 84 18 141/73 (95) 97 Room Air 97.7 04/01/18 15:00 96.6 80 16 140/68 (92) 96 Room Air 96.6 04/01/18 12:56 95 Room Air 11/5/18 11:54 95 Room Air 04/01/18 11:52 95 Room Air 04/01/18 11:00 97.5 84 24 138/73 (94) 95 Room Air 97.5 04/01/18 10:01 96 Room Air 04/01/18 09:51 83 146/73 04/01/18 08:00 Room Air I & O Intake and Output 04/02/18 07:00 Intake Total 1345 ml Output Total 850 ml Balance 495 ml Intake Oral 1345 ml Output Urine Total 850 ml # Voids 2 COMMENT Lab Laboratory Tests Test 04/02/18 06:05 White Blood Count 12.3 x10^3/uL (4.0-11.0) Red Blood Count 2.67 x10^6/uL (4.30-5.70) Hemoglobin 9.1 g/dL (13.0-17.5) Hematocrit 25.6 % (39.0-53.0) Mean Corpuscular Volume 96 fL (79-100) Mean Corpuscular Hemoglobin 34 pg (25-35) Mean Corpuscular Hemoglobin Concent 36 g/dL (31-37) Red Cell Distribution Width 13.6 % (11.5-14.5) Platelet Count 258 x10^3/uL (140-400) Neutrophils (%) (Auto) 86 % (31-73) Lymphocytes (%) (Auto) 4 % (24-48) Monocytes (%) (Auto) 8 % (0-9) Eosinophils (%) (Auto) 1 % (0-3) Basophils (%) (Auto) 1 % (0-3) Neutrophils # (Auto) 10.6 x10^3uL (1.8-7.7) Lymphocytes # (Auto) 0.5 x10^3/uL (1.0-4.8) Monocytes # (Auto) 1.0 x10^3/uL (0.0-1.1) Eosinophils # (Auto) 0.2 x10^3/uL (0.0-0.7) Basophils # (Auto) 0.1 x10^3/uL (0.0-0.2) Sodium Level 132 mmol/L (136-145) Potassium Level 4.2 mmol/L (3.5-5.1) Chloride Level 97 mmol/L (98-107) Carbon Dioxide Level 29 mmol/L (21-32) Anion Gap 6 (6-14) Blood Urea Nitrogen 15 mg/dL (8-26) Creatinine 0.7 mg/dL (0.7-1.3) Estimated GFR (Cockcroft-Gault) 112.5 BUN/Creatinine Ratio 21 (6-20) Glucose Level 139 mg/dL (70-99) Calcium Level 9.0 mg/dL (8.5-10.1) Total Bilirubin 0.3 mg/dL (0.2-1.0) Aspartate Amino Transf (AST/SGOT) 12 U/L (15-37) Alanine Aminotransferase (ALT/SGPT) 16 U/L (16-63) Alkaline Phosphatase 64 U/L (46-116) Total Protein 6.6 g/dL (6.4-8.2) Albumin 2.2 g/dL (3.4-5.0) Albumin/Globulin Ratio 0.5 (1.0-1.7) Nutrition Consultation Dietary Evaluation: Recommendations by RD: Increase Calorie Intake, Protein supplementation, PPN/ TPN Comments: continue mech soft diet, pt tolerating continue ensure tid continue PPN at this time Expected Outcomes/Goals: to meet > 75% est nutr needs via po intake- met at times, goal ongoing Interpretation of weight loss: >7.5% in 3 months Malnutrition Findings: Food and Nutrition Intake (Sev: <50% est energy req 5days Weight Status: Appropriate IGNACIO HAM MD Apr 02, 2018 07:57
[2018-04-02] MEDS: ASPIRIN ENTERIC COATED 81 MG TABLET.DR. PO SCH (09:04)
[2018-04-02] MEDS: METOPROLOL TART IMMED RELEASE 25 MG TABLET. PO SCH (09:04)
[2018-04-02] MEDS: HYDROmorphone 2 MG/ML VIAL IV PRN (09:04)
[2018-04-02] MEDS: AMOXICILLIN/K CLAV 875/125MG TABLET. PO SCH (09:04)
[2018-04-02] MEDS: PANTOPRAZOLE 40 MG TABLET.DR. PO SCH (09:04)
--- NOTE | 2018-04-02 09:11 | PDOC ---
PROGRESS NOTES History of Present Illness History of Present Illness Assessment/Plan Assessment/Plan generalized weakness. 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 There is also increased bone destruction of the left zygomatic arch, left mastoid air cells, left temporal and left temporal calvarium with possible intracranial extent to the lateral aspect of the left middle cranial fossa. Progression of findings may be due to progression of neoplasm although also consideration of associated infection and osteomyelitis. chronic pain opoid dependence. HTN DNR reactive depression plan: d/c home today with home health iv zyvox, zosyn RT, onco following id FOLLOWING wound care following nutrition consult PPN , adat labs CXR pain control dvt ppx PTOT cont home meds on palliative treatment with Opdivo PALLIATIVE CARE following for fci goals Vitals Vitals Vital Signs Date Time Temp Pulse Resp B/P (MAP) Pulse Ox O2 Delivery O2 Flow Rate FiO2 04/02/18 09:04 78 137/70 04/02/18 09:04 97 Room Air 04/02/18 07:00 99.5 18 99.5 Physical Exam Physical Exam GENERAL: Sitting on the side of the bed, tired appearance HEENT: Dressing over the left side of face. + odor Left Gao palsy changes present chronic, unable to close left eyelid completely due to same. LUNGS: Clear bilaterally. CARDIOVASCULAR: S1, S2. ABDOMEN: Soft, nontender. 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 see picture) Labs LABS Laboratory Tests Test 04/02/18 06:05 White Blood Count 12.3 x10^3/uL (4.0-11.0) Red Blood Count 2.67 x10^6/uL (4.30-5.70) Hemoglobin 9.1 g/dL (13.0-17.5) Hematocrit 25.6 % (39.0-53.0) Mean Corpuscular Volume 96 fL (79-100) Mean Corpuscular Hemoglobin 34 pg (25-35) Mean Corpuscular Hemoglobin Concent 36 g/dL (31-37) Red Cell Distribution Width 13.6 % (11.5-14.5) Platelet Count 258 x10^3/uL (140-400) Neutrophils (%) (Auto) 86 % (31-73) Lymphocytes (%) (Auto) 4 % (24-48) Monocytes (%) (Auto) 8 % (0-9) Eosinophils (%) (Auto) 1 % (0-3) Basophils (%) (Auto) 1 % (0-3) Neutrophils # (Auto) 10.6 x10^3uL (1.8-7.7) Lymphocytes # (Auto) 0.5 x10^3/uL (1.0-4.8) Monocytes # (Auto) 1.0 x10^3/uL (0.0-1.1) Eosinophils # (Auto) 0.2 x10^3/uL (0.0-0.7) Basophils # (Auto) 0.1 x10^3/uL (0.0-0.2) Sodium Level 132 mmol/L (136-145) Potassium Level 4.2 mmol/L (3.5-5.1) Chloride Level 97 mmol/L (98-107) Carbon Dioxide Level 29 mmol/L (21-32) Anion Gap 6 (6-14) Blood Urea Nitrogen 15 mg/dL (8-26) Creatinine 0.7 mg/dL (0.7-1.3) Estimated GFR (Cockcroft-Gault) 112.5 BUN/Creatinine Ratio 21 (6-20) Glucose Level 139 mg/dL (70-99) Calcium Level 9.0 mg/dL (8.5-10.1) Total Bilirubin 0.3 mg/dL (0.2-1.0) Aspartate Amino Transf (AST/SGOT) 12 U/L (15-37) Alanine Aminotransferase (ALT/SGPT) 16 U/L (16-63) Alkaline Phosphatase 64 U/L (46-116) Total Protein 6.6 g/dL (6.4-8.2) Albumin 2.2 g/dL (3.4-5.0) Albumin/Globulin Ratio 0.5 (1.0-1.7) Comment Review of Relevant I have reviewed the following items daniella (where applicable) has been applied. Labs Laboratory Tests Test 03/31/18 10:00 04/02/18 06:05 White Blood Count 9.4 x10^3/uL (4.0-11.0) 12.3 x10^3/uL (4.0-11.0) Red Blood Count 2.46 x10^6/uL (4.30-5.70) 2.67 x10^6/uL (4.30-5.70) Hemoglobin 8.5 g/dL (13.0-17.5) 9.1 g/dL (13.0-17.5) Hematocrit 23.7 % (39.0-53.0) 25.6 % (39.0-53.0) Mean Corpuscular Volume 96 fL (79-100) 96 fL (79-100) Mean Corpuscular Hemoglobin 35 pg (25-35) 34 pg (25-35) Mean Corpuscular Hemoglobin Concent 36 g/dL (31-37) 36 g/dL (31-37) Red Cell Distribution Width 13.4 % (11.5-14.5) 13.6 % (11.5-14.5) Platelet Count 226 x10^3/uL (140-400) 258 x10^3/uL (140-400) Neutrophils (%) (Auto) 87 % (31-73) 86 % (31-73) Lymphocytes (%) (Auto) 5 % (24-48) 4 % (24-48) Monocytes (%) (Auto) 7 % (0-9) 8 % (0-9) Eosinophils (%) (Auto) 1 % (0-3) 1 % (0-3) Basophils (%) (Auto) 1 % (0-3) 1 % (0-3) Neutrophils # (Auto) 8.2 x10^3uL (1.8-7.7) 10.6 x10^3uL (1.8-7.7) Lymphocytes # (Auto) 0.4 x10^3/uL (1.0-4.8) 0.5 x10^3/uL (1.0-4.8) Monocytes # (Auto) 0.7 x10^3/uL (0.0-1.1) 1.0 x10^3/uL (0.0-1.1) Eosinophils # (Auto) 0.0 x10^3/uL (0.0-0.7) 0.2 x10^3/uL (0.0-0.7) Basophils # (Auto) 0.1 x10^3/uL (0.0-0.2) 0.1 x10^3/uL (0.0-0.2) Sodium Level 132 mmol/L (136-145) 132 mmol/L (136-145) Potassium Level 4.2 mmol/L (3.5-5.1) 4.2 mmol/L (3.5-5.1) Chloride Level 95 mmol/L (98-107) 97 mmol/L (98-107) Carbon Dioxide Level 34 mmol/L (21-32) 29 mmol/L (21-32) Anion Gap 3 (6-14) 6 (6-14) Blood Urea Nitrogen 11 mg/dL (8-26) 15 mg/dL (8-26) Creatinine 0.7 mg/dL (0.7-1.3) 0.7 mg/dL (0.7-1.3) Estimated GFR (Cockcroft-Gault) 112.5 112.5 Glucose Level 140 mg/dL (70-99) 139 mg/dL (70-99) Calcium Level 8.8 mg/dL (8.5-10.1) 9.0 mg/dL (8.5-10.1) BUN/Creatinine Ratio 21 (6-20) Total Bilirubin 0.3 mg/dL (0.2-1.0) Aspartate Amino Transf (AST/SGOT) 12 U/L (15-37) Alanine Aminotransferase (ALT/SGPT) 16 U/L (16-63) Alkaline Phosphatase 64 U/L (46-116) Total Protein 6.6 g/dL (6.4-8.2) Albumin 2.2 g/dL (3.4-5.0) Albumin/Globulin Ratio 0.5 (1.0-1.7) Laboratory Tests Test 04/02/18 06:05 White Blood Count 12.3 x10^3/uL (4.0-11.0) Red Blood Count 2.67 x10^6/uL (4.30-5.70) Hemoglobin 9.1 g/dL (13.0-17.5) Hematocrit 25.6 % (39.0-53.0) Mean Corpuscular Volume 96 fL (79-100) Mean Corpuscular Hemoglobin 34 pg (25-35) Mean Corpuscular Hemoglobin Concent 36 g/dL (31-37) Red Cell Distribution Width 13.6 % (11.5-14.5) Platelet Count 258 x10^3/uL (140-400) Neutrophils (%) (Auto) 86 % (31-73) Lymphocytes (%) (Auto) 4 % (24-48) Monocytes (%) (Auto) 8 % (0-9) Eosinophils (%) (Auto) 1 % (0-3) Basophils (%) (Auto) 1 % (0-3) Neutrophils # (Auto) 10.6 x10^3uL (1.8-7.7) Lymphocytes # (Auto) 0.5 x10^3/uL (1.0-4.8) Monocytes # (Auto) 1.0 x10^3/uL (0.0-1.1) Eosinophils # (Auto) 0.2 x10^3/uL (0.0-0.7) Basophils # (Auto) 0.1 x10^3/uL (0.0-0.2) Sodium Level 132 mmol/L (136-145) Potassium Level 4.2 mmol/L (3.5-5.1) Chloride Level 97 mmol/L (98-107) Carbon Dioxide Level 29 mmol/L (21-32) Anion Gap 6 (6-14) Blood Urea Nitrogen 15 mg/dL (8-26) Creatinine 0.7 mg/dL (0.7-1.3) Estimated GFR (Cockcroft-Gault) 112.5 BUN/Creatinine Ratio 21 (6-20) Glucose Level 139 mg/dL (70-99) Calcium Level 9.0 mg/dL (8.5-10.1) Total Bilirubin 0.3 mg/dL (0.2-1.0) Aspartate Amino Transf (AST/SGOT) 12 U/L (15-37) Alanine Aminotransferase (ALT/SGPT) 16 U/L (16-63) Alkaline Phosphatase 64 U/L (46-116) Total Protein 6.6 g/dL (6.4-8.2) Albumin 2.2 g/dL (3.4-5.0) Albumin/Globulin Ratio 0.5 (1.0-1.7) Microbiology 03/27/18 Blood Culture - Final, Complete NO GROWTH AFTER 5 DAYS Medications Current Medications Amino Acids/ Glycerin/ Electrolytes 1,000 ml @ 80 mls/hr [id number] IV Last administered on 04/01/18at 23:58; Start 03/26/18 at 16:00 Levofloxacin/ Dextrose 150 ml @ 100 mls/hr Q24H IV Last administered on at 17:51; Start 03/26/18 at 16:00; Stop 03/27/18 at 09:01; Status DC Acetaminophen (Tylenol) 650 mg PRN Q6HRS PRN PO FEVER; Start 03/26/18 at 15:15 Ondansetron HCl (Zofran) 4 mg PRN Q6HRS PRN IV NAUSEA/VOMITING Last administered on 03/29/18at 11:01; Start 03/26/18 at 15:15 Morphine Sulfate (Morphine Sulfate) 2 mg PRN Q2HR PRN IV MODERATE TO SEVERE PAIN; Start 03/26/18 at 15:15; Stop 03/27/18 at 16:33; Status DC Tramadol HCl (Ultram) 50 mg PRN Q6HRS PRN PO MILD TO MODERATE PAIN; Start at 15:15 Docusate Sodium (Colace) 100 mg PRN DAILY PRN PO CONSTIPATION; Start 03/26/18 at 15:15 Oxycodone/ Acetaminophen (Percocet 10/325) 1 tab PRN Q6HRS PRN PO SEVERE PAIN Last administered on 04/02/18at 06:14; Start 03/26/18 at 15:15 Albuterol Sulfate (Ventolin Neb Soln) 2.5 mg PRN Q4HRS PRN NEB SHORTNESS OF BREATH; Start 03/26/18 at 15:15 Hydromorphone HCl (Dilaudid) 1 mg Q3HRS PRN IV MODERATE PAIN Last administered on 03/27/18at 01:39; Start 03/26/18 at 19:30; Stop 03/27/18 at 19:30; Status DC Hydromorphone HCl (Dilaudid) 2 mg Q3HRS PRN IV SEVERE PAIN Last administered on 03/27/18at 19:07; Start 03/26/18 at 19:30; Stop 03/27/18 at 19:33; Status DC Potassium Chloride (Klor-Con) 40 meq 1X ONCE PO Last administered on at 20:51; Start 03/26/18 at 19:30; Stop 03/26/18 at 19:35; Status DC Piperacillin Sod/ Tazobactam Sod 4.5 gm/Sodium Chloride 100 ml @ 200 mls/hr Q6HRS IV Last administered on 03/29/18at 12:06; Start 03/27/18 at 10:00; Stop 03/29/18 at 15:12; Status DC Linezolid/Dextrose 300 ml @ 300 mls/hr Q12HR IV Last administered on at 08:37; Start 03/27/18 at 10:00; Stop 03/29/18 at 15:12; Status DC Pantoprazole Sodium (PROTONIX VIAL for IV PUSH) 40 mg DAILYAC IVP Last administered on 03/29/18at 08:36; Start 03/27/18 at 11:30; Stop 03/29/18 at 18: 54; Status DC Lidocaine HCl (Viscous Lidocaine) 15 ml PRN TID PRN SWSW mouth/throat pain; Start 03/27/18 at 11:30; Stop 03/28/18 at 10:17; Status DC Lactobacillus Rhamnosus (Culturelle) 1 cap BID PO Last administered on at 21:34; Start 03/27/18 at 12:00; Stop 03/29/18 at 18:52; Status DC Morphine Sulfate (Morphine Sulfate) 4 mg PRN Q2HR PRN IV MODERATE PAIN Last administered on 04/02/18at 08:06; Start 03/27/18 at 16:45 Hydromorphone HCl (Dilaudid) 2 mg PRN Q3HRS PRN IV MODERATE PAIN Last administered on 03/30/18at 10:08; Start 03/27/18 at 19:30; Stop 03/30/18 at 12: 03; Status DC Hydromorphone HCl (Dilaudid) 2 mg PRN Q3HRS PRN IV SEVERE PAIN Last administered on 04/02/18 09:04; Start 03/27/18 at 19:45 Lidocaine HCl (Viscous Lidocaine) 15 ml TIDAC SWSW Last administered on 07:55; Start 03/28/18 at 11:30 Amoxicillin/ Clavulanate Potassium (Augmentin 875/ 125mg) 1 tab BID PO Last administered on 04/02/18 09:04; Start 03/29/18 at 21:00 Linezolid (Zyvox) 600 mg BID PO Last administered on 03/31/18 08:48; Start at 21:00; Stop 03/31/18 at 15:34; Status DC Magnesium Sulfate 50 ml @ 25 mls/hr 1X ONCE IV Last administered on 03/29/18 15:45; Start 03/29/18 at 16:00; Stop 03/29/18 at 17:59; Status DC Metoprolol Tartrate (Lopressor) 25 mg BID PO Last administered on 04/02/18 09: 04; Start 03/29/18 at 15:15 Aspirin (Ecotrin) 81 mg DAILYWBKFT PO Last administered on 04/02/18 09:04; Start 03/30/18 at 08:00 Potassium Chloride (KCl Oral Soln) 20 meq 1X ONCE PEG Last administered on 15:34; Start 03/29/18 at 16:00; Stop 03/29/18 at 16:01; Status DC Atorvastatin Calcium (Lipitor) 20 mg QHS PO Last administered on 04/01/18 20: 25; Start 03/29/18 at 21:00 Digoxin (Lanoxin) 500 mcg 1X ONCE IV Last administered on 03/29/18at 15:40; Start 03/29/18 at 15:30; Stop 03/29/18 at 15:31; Status DC Pantoprazole Sodium (Protonix) 40 mg DAILYAC PO Last administered on 04/02/18 09:04; Start 03/30/18 at 07:30 Guaifenesin (Robitussin Dm) 10 ml PRN Q6HRS PRN PO COUGH; Start 03/31/18 at 16: 45 Active Scripts Active Augmentin 875-125 Tablet (Amoxicillin/Potassium Clav) 1 Each Tablet 1 Tab PO BID Polyethylene Glycol 3350 17 Gm Powd.pack 17 Gm PO PRN DAILY PRN Colace (Docusate Sodium) 100 Mg Capsule 100 Mg PO BID Reported Xarelto (Rivaroxaban) 20 Mg Tablet 20 Mg PO DAILYWSUP Zofran (Ondansetron Hcl) 8 Mg Tablet 8 Mg PO BID PRN Morphine Sulfate 15 Mg Tablet 15 Mg PO BID Ambien (Zolpidem Tartrate) 5 Mg Tablet 1 Tab PO QHS PRN Potassium Chloride 20 Meq Tablet.er 20 Meq PO DAILY Metoprolol Tartrate 50 Mg Tablet 25 Mg PO HS Simvastatin 20 Mg Tablet 20 Mg PO HS Percocet 10-325 Mg Tablet (Oxycodone/Acetaminophen) 1 Each Tablet 1 Tab PO PRN Q6HRS PRN Vitals/I & O Vital Sign - Last 24 Hours 04/01/18 04/01/18 04/01/18 04/01/18 09:51 10:01 11:00 11:54 Temp 97.5 97.5 Pulse 83 84 Resp 24 B/P (MAP) 146/73 138/73 (94) Pulse Ox 96 95 95 O2 Delivery Room Air Room Air Room Air 04/01/18 04/01/18 04/01/18 04/01/18 12:56 15:00 19:05 20:15 Temp 96.6 97.7 96.6 97.7 Pulse 80 84 Resp 16 18 B/P (MAP) 140/68 (92) 141/73 (95) Pulse Ox 95 96 97 O2 Delivery Room Air Room Air Room Air Room Air 04/01/18 04/01/18 04/02/18 04/02/18 20:25 23:05 03:05 07:00 Temp 97.7 97.5 99.5 97.7 97.5 99.5 Pulse 84 82 74 87 Resp 18 16 18 B/P (MAP) 141/73 119/52 (74) 132/63 (86) 123/100 (108) Pulse Ox 97 97 97 O2 Delivery Room Air Room Air Room Air 04/02/18 04/02/18 04/02/18 04/02/18 08:06 08:33 08:33 09:04 Pulse Ox 97 97 97 97 O2 Delivery Room Air Room Air Room Air Room Air 04/02/18 09:04 Pulse 78 B/P (MAP) 137/70 Intake and Output 1104/01/18 04/02/18 15:00 23:00 07:00 Intake Total 370 ml 375 ml 600 ml Output Total 850 ml Balance 370 ml 375 ml -250 ml Nutrition Consultation Dietary Evaluation: Recommendations by RD: Increase Calorie Intake, Protein supplementation, PPN/ TPN Comments: continue mech soft diet, pt tolerating continue ensure tid continue PPN at this time Expected Outcomes/Goals: to meet > 75% est nutr needs via po intake- met at times, goal ongoing Interpretation of weight loss: >7.5% in 3 months Malnutrition Findings: Food and Nutrition Intake (Sev: <50% est energy req 5days Weight Status: Appropriate SUSAN GREENE MD Apr 02, 2018 09:11
--- NOTE | 2018-04-02 09:53 | PDOC ---
Subjective: Subjective: says she doesn't know what the hell they're waiting on to go home. Hasn't eaten breakfast yet because it just arrived. Feels hungry. Not forthcoming. Objective: Objective: RN suggests discharge held do to continued need for IV pain meds. He asked for morphine and Dilaudid together so he can go to sleep. Reviewed chart - to have radiotherapy today. Remains on PPN. Vital Signs: Vital Signs Date Time Temp Pulse Resp B/P (MAP) Pulse Ox O2 Delivery O2 Flow Rate FiO2 04/02/18 09:04 78 137/70 04/02/18 09:04 97 Room Air 04/02/18 07:00 99.5 18 99.5 Labs: Laboratory Tests Test 04/02/18 06:05 White Blood Count 12.3 x10^3/uL Red Blood Count 2.67 x10^6/uL Hemoglobin 9.1 g/dL Hematocrit 25.6 % Mean Corpuscular Volume 96 fL Mean Corpuscular Hemoglobin 34 pg Mean Corpuscular Hemoglobin Concent 36 g/dL Red Cell Distribution Width 13.6 % Platelet Count 258 x10^3/uL Neutrophils (%) (Auto) 86 % Lymphocytes (%) (Auto) 4 % Monocytes (%) (Auto) 8 % Eosinophils (%) (Auto) 1 % Basophils (%) (Auto) 1 % Neutrophils # (Auto) 10.6 x10^3uL Lymphocytes # (Auto) 0.5 x10^3/uL Monocytes # (Auto) 1.0 x10^3/uL Eosinophils # (Auto) 0.2 x10^3/uL Basophils # (Auto) 0.1 x10^3/uL Sodium Level 132 mmol/L Potassium Level 4.2 mmol/L Chloride Level 97 mmol/L Carbon Dioxide Level 29 mmol/L Anion Gap 6 Blood Urea Nitrogen 15 mg/dL Creatinine 0.7 mg/dL Estimated GFR (Cockcroft-Gault) 112.5 BUN/Creatinine Ratio 21 Glucose Level 139 mg/dL Calcium Level 9.0 mg/dL Total Bilirubin 0.3 mg/dL Aspartate Amino Transf (AST/SGOT) 12 U/L Alanine Aminotransferase (ALT/SGPT) 16 U/L Alkaline Phosphatase 64 U/L Total Protein 6.6 g/dL Albumin 2.2 g/dL Albumin/Globulin Ratio 0.5 PE: GEN: NAD LUNGS: CTAB HEART: RRR ABD: soft NEURO/PSYCH: A & O 3, flat A/P: Parotid SCC/infection, odynophagia Left forearm SCC -- Swallowing improved, eating some. DC per primary - would send with viscous lidocaine. ZEB CAMPBELL Apr 02, 2018 09:53
[2018-04-02] MEDS: AMINO AC 3%/ELECTROLYTE/GLYCER 1,000 ML IV SCH (10:30)
[2018-04-02 11:39] VITALS: BP 114/64
--- NOTE | 2018-04-02 12:40 | PDOC3 ---
Discharge Summary Date of Admission: Mar 26, 2018 Date of Discharge: Apr 02, 2018 Follow-Up: 1-2 days Admitting Diagnosis comment: Assessment/Plan Assessment/Plan generalized weakness. 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 There is also increased bone destruction of the left zygomatic arch, left mastoid air cells, left temporal and left temporal calvarium with possible intracranial extent to the lateral aspect of the left middle cranial fossa. Progression of findings may be due to progression of neoplasm although also consideration of associated infection and osteomyelitis. chronic pain opoid dependence. HTN DNR reactive depression plan: d/c home today with home health iv zyvox, zosyn RT, onco following id FOLLOWING wound care following nutrition consult PPN , adat labs CXR pain control dvt ppx PTOT cont home meds on palliative treatment with Opdivo PALLIATIVE CARE following for detention goals Vitals Vitals Vital Signs Date Time Temp Pulse Resp B/P (MAP) Pulse Ox O2 Delivery O2 Flow Rate FiO2 04/02/18 09:04 78 137/70 04/02/18 09:04 97 Room Air 04/02/18 07:00 99.5 18 99.5 Physical Exam Physical Exam GENERAL: Sitting on the side of the bed, tired appearance HEENT: Dressing over the left side of face. + odor Left Gao palsy changes present chronic, unable to close left eyelid completely due to same. LUNGS: Clear bilaterally. CARDIOVASCULAR: S1, S2. ABDOMEN: Soft, nontender. 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 see picture) insists on discharge today Brief Hospital Course Mr. Aguilar is a 67 old [sex] who presented with [ ] CONDITION AT DISCHARGE: Comment (poor prognosis) Discharge Medications Current Medications Amino Acids/ Glycerin/ Electrolytes 1,000 ml @ 80 mls/hr [id number] IV Last administered on 04/01/18at 23:58; Start 10/30/18 at 16:00 Levofloxacin/ Dextrose 150 ml @ 100 mls/hr Q24H IV Last administered on at 17:51; Start 03/26/18 at 16:00; Stop 03/27/18 at 09:01; Status DC Acetaminophen (Tylenol) 650 mg PRN Q6HRS PRN PO FEVER; Start 03/26/18 at 15:15 Ondansetron HCl (Zofran) 4 mg PRN Q6HRS PRN IV NAUSEA/VOMITING Last administered on 03/29/18at 11:01; Start 03/26/18 at 15:15 Morphine Sulfate (Morphine Sulfate) 2 mg PRN Q2HR PRN IV MODERATE TO SEVERE PAIN; Start 03/26/18 at 15:15; Stop 03/27/18 at 16:33; Status DC Tramadol HCl (Ultram) 50 mg PRN Q6HRS PRN PO MILD TO MODERATE PAIN; Start at 15:15 Docusate Sodium (Colace) 100 mg PRN DAILY PRN PO CONSTIPATION; Start 03/26/18 at 15:15 Oxycodone/ Acetaminophen (Percocet 10/325) 1 tab PRN Q6HRS PRN PO SEVERE PAIN Last administered on 04/02/18at 06:14; Start 03/26/18 at 15:15 Albuterol Sulfate (Ventolin Neb Soln) 2.5 mg PRN Q4HRS PRN NEB SHORTNESS OF BREATH; Start 03/26/18 at 15:15 Hydromorphone HCl (Dilaudid) 1 mg Q3HRS PRN IV MODERATE PAIN Last administered on 03/27/18at 01:39; Start 03/26/18 at 19:30; Stop 03/27/18 at 19:30; Status DC Hydromorphone HCl (Dilaudid) 2 mg Q3HRS PRN IV SEVERE PAIN Last administered on 03/27/18at 19:07; Start 03/26/18 at 19:30; Stop 03/27/18 at 19:33; Status DC Potassium Chloride (Klor-Con) 40 meq 1X ONCE PO Last administered on at 20:51; Start 03/26/18 at 19:30; Stop 03/26/18 at 19:35; Status DC Piperacillin Sod/ Tazobactam Sod 4.5 gm/Sodium Chloride 100 ml @ 200 mls/hr Q6HRS IV Last administered on 03/29/18at 12:06; Start 03/27/18 at 10:00; Stop 03/29/18 at 15:12; Status DC Linezolid/Dextrose 300 ml @ 300 mls/hr Q12HR IV Last administered on at 08:37; Start 03/27/18 at 10:00; Stop 03/29/18 at 15:12; Status DC Pantoprazole Sodium (PROTONIX VIAL for IV PUSH) 40 mg DAILYAC IVP Last administered on 03/29/18at 08:36; Start 03/27/18 at 11:30; Stop 03/29/18 at 18: 54; Status DC Lidocaine HCl (Viscous Lidocaine) 15 ml PRN TID PRN SWSW mouth/throat pain; Start 03/27/18 at 11:30; Stop 03/28/18 at 10:17; Status DC Lactobacillus Rhamnosus (Culturelle) 1 cap BID PO Last administered on at 21:34; Start 03/27/18 at 12:00; Stop 03/29/18 at 18:52; Status DC Morphine Sulfate (Morphine Sulfate) 4 mg PRN Q2HR PRN IV MODERATE PAIN Last administered on 04/02/18at 08:06; Start 03/27/18 at 16:45 Hydromorphone HCl (Dilaudid) 2 mg PRN Q3HRS PRN IV MODERATE PAIN Last administered on 03/30/18at 10:08; Start 03/27/18 at 19:30; Stop 03/30/18 at 12: 03; Status DC Hydromorphone HCl (Dilaudid) 2 mg PRN Q3HRS PRN IV SEVERE PAIN Last administered on 04/02/18at 09:04; Start 03/27/18 at 19:45 Lidocaine HCl (Viscous Lidocaine) 15 ml TIDAC SWSW Last administered on at 07:55; Start 03/28/18 at 11:30 Amoxicillin/ Clavulanate Potassium (Augmentin 875/ 125mg) 1 tab BID PO Last administered on 04/02/18at 09:04; Start 03/29/18 at 21:00 Linezolid (Zyvox) 600 mg BID PO Last administered on 03/31/18at 08:48; Start at 21:00; Stop 03/31/18 at 15:34; Status DC Magnesium Sulfate 50 ml @ 25 mls/hr 1X ONCE IV Last administered on 03/29/18at 15:45; Start 03/29/18 at 16:00; Stop 03/29/18 at 17:59; Status DC Metoprolol Tartrate (Lopressor) 25 mg BID PO Last administered on 04/02/18at 09: 04; Start 03/29/18 at 15:15 Aspirin (Ecotrin) 81 mg DAILYWBKFT PO Last administered on 04/02/18at 09:04; Start 03/30/18 at 08:00 Potassium Chloride (KCl Oral Soln) 20 meq 1X ONCE PEG Last administered on 03/29/18at 15:34; Start 03/29/18 at 16:00; Stop 03/29/18 at 16:01; Status DC Atorvastatin Calcium (Lipitor) 20 mg QHS PO Last administered on 04/01/18at 20: 25; Start 03/29/18 at 21:00 Digoxin (Lanoxin) 500 mcg 1X ONCE IV Last administered on 03/29/18at 15:40; Start 03/29/18 at 15:30; Stop 03/29/18 at 15:31; Status DC Pantoprazole Sodium (Protonix) 40 mg DAILYAC PO Last administered on 04/02/18at 09:04; Start 03/30/18 at 07:30 Guaifenesin (Robitussin Dm) 10 ml PRN Q6HRS PRN PO COUGH; Start 03/31/18 at 16: 45 Active Scripts Active Augmentin 875-125 Tablet (Amoxicillin/Potassium Clav) 1 Each Tablet 1 Tab PO BID Polyethylene Glycol 3350 17 Gm Powd.pack 17 Gm PO PRN DAILY PRN Colace (Docusate Sodium) 100 Mg Capsule 100 Mg PO BID Reported Xarelto (Rivaroxaban) 20 Mg Tablet 20 Mg PO DAILYWSUP Zofran (Ondansetron Hcl) 8 Mg Tablet 8 Mg PO BID PRN Morphine Sulfate 15 Mg Tablet 15 Mg PO BID Ambien (Zolpidem Tartrate) 5 Mg Tablet 1 Tab PO QHS PRN Potassium Chloride 20 Meq Tablet.er 20 Meq PO DAILY Metoprolol Tartrate 50 Mg Tablet 25 Mg PO HS Simvastatin 20 Mg Tablet 20 Mg PO HS Percocet 10-325 Mg Tablet (Oxycodone/Acetaminophen) 1 Each Tablet 1 Tab PO PRN Q6HRS PRN Vital Signs Vital Signs Date Time Temp Pulse Resp B/P (MAP) Pulse Ox O2 Delivery O2 Flow Rate FiO2 04/02/18 11:39 97.5 82 16 114/64 (81) 96 Room Air 97.5 Labs Laboratory Tests Test 04/02/18 06:05 White Blood Count 12.3 x10^3/uL (4.0-11.0) Red Blood Count 2.67 x10^6/uL (4.30-5.70) Hemoglobin 9.1 g/dL (13.0-17.5) Hematocrit 25.6 % (39.0-53.0) Mean Corpuscular Volume 96 fL (79-100) Mean Corpuscular Hemoglobin 34 pg (25-35) Mean Corpuscular Hemoglobin Concent 36 g/dL (31-37) Red Cell Distribution Width 13.6 % (11.5-14.5) Platelet Count 258 x10^3/uL (140-400) Neutrophils (%) (Auto) 86 % (31-73) Lymphocytes (%) (Auto) 4 % (24-48) Monocytes (%) (Auto) 8 % (0-9) Eosinophils (%) (Auto) 1 % (0-3) Basophils (%) (Auto) 1 % (0-3) Neutrophils # (Auto) 10.6 x10^3uL (1.8-7.7) Lymphocytes # (Auto) 0.5 x10^3/uL (1.0-4.8) Monocytes # (Auto) 1.0 x10^3/uL (0.0-1.1) Eosinophils # (Auto) 0.2 x10^3/uL (0.0-0.7) Basophils # (Auto) 0.1 x10^3/uL (0.0-0.2) Sodium Level 132 mmol/L (136-145) Potassium Level 4.2 mmol/L (3.5-5.1) Chloride Level 97 mmol/L (98-107) Carbon Dioxide Level 29 mmol/L (21-32) Anion Gap 6 (6-14) Blood Urea Nitrogen 15 mg/dL (8-26) Creatinine 0.7 mg/dL (0.7-1.3) Estimated GFR (Cockcroft-Gault) 112.5 BUN/Creatinine Ratio 21 (6-20) Glucose Level 139 mg/dL (70-99) Calcium Level 9.0 mg/dL (8.5-10.1) Total Bilirubin 0.3 mg/dL (0.2-1.0) Aspartate Amino Transf (AST/SGOT) 12 U/L (15-37) Alanine Aminotransferase (ALT/SGPT) 16 U/L (16-63) Alkaline Phosphatase 64 U/L (46-116) Total Protein 6.6 g/dL (6.4-8.2) Albumin 2.2 g/dL (3.4-5.0) Albumin/Globulin Ratio 0.5 (1.0-1.7) Laboratory Tests Test 04/02/18 06:05 White Blood Count 12.3 x10^3/uL (4.0-11.0) Red Blood Count 2.67 x10^6/uL (4.30-5.70) Hemoglobin 9.1 g/dL (13.0-17.5) Hematocrit 25.6 % (39.0-53.0) Mean Corpuscular Volume 96 fL (79-100) Mean Corpuscular Hemoglobin 34 pg (25-35) Mean Corpuscular Hemoglobin Concent 36 g/dL (31-37) Red Cell Distribution Width 13.6 % (11.5-14.5) Platelet Count 258 x10^3/uL (140-400) Neutrophils (%) (Auto) 86 % (31-73) Lymphocytes (%) (Auto) 4 % (24-48) Monocytes (%) (Auto) 8 % (0-9) Eosinophils (%) (Auto) 1 % (0-3) Basophils (%) (Auto) 1 % (0-3) Neutrophils # (Auto) 10.6 x10^3uL (1.8-7.7) Lymphocytes # (Auto) 0.5 x10^3/uL (1.0-4.8) Monocytes # (Auto) 1.0 x10^3/uL (0.0-1.1) Eosinophils # (Auto) 0.2 x10^3/uL (0.0-0.7) Basophils # (Auto) 0.1 x10^3/uL (0.0-0.2) Sodium Level 132 mmol/L (136-145) Potassium Level 4.2 mmol/L (3.5-5.1) Chloride Level 97 mmol/L (98-107) Carbon Dioxide Level 29 mmol/L (21-32) Anion Gap 6 (6-14) Blood Urea Nitrogen 15 mg/dL (8-26) Creatinine 0.7 mg/dL (0.7-1.3) Estimated GFR (Cockcroft-Gault) 112.5 BUN/Creatinine Ratio 21 (6-20) Glucose Level 139 mg/dL (70-99) Calcium Level 9.0 mg/dL (8.5-10.1) Total Bilirubin 0.3 mg/dL (0.2-1.0) Aspartate Amino Transf (AST/SGOT) 12 U/L (15-37) Alanine Aminotransferase (ALT/SGPT) 16 U/L (16-63) Alkaline Phosphatase 64 U/L (46-116) Total Protein 6.6 g/dL (6.4-8.2) Albumin 2.2 g/dL (3.4-5.0) Albumin/Globulin Ratio 0.5 (1.0-1.7) Allergies Allergies Coded Allergies Type Severity Reaction Last Updated Verified No Known Drug Allergies 10/02/16 No Disposition/Orders: D/C to Home w/ HH SUSAN GREENE MD Apr 02, 2018 12:40
--- NOTE | 2018-04-02 12:42 | DISCH ---
DISCHARGE WITH HOME HEALTH DISCHARGE INFORMATION: Discharge Date: Apr 02, 2018 Condition on Discharge: Guarded HOME HEALTH: Face to Face: I certify this patient is under my care and that I, or a nurse practitioner or physician's asset protection assistant working with me, had a face to face encounter that meets the physician face to face encounter requirements with this patient on [04/02/18 ]. Medical Complications: Other (facial cancer) Physical Therapy For: Evalulation/Treatment Occupational Therapy For: Evaluation/Treatment Speech Language Pathology For: Evaluation/Treatment Home Health Aide For: Self-care RAIL FILLER For: Community Resources POST DISCHARGE ORDERS: Activity Instructions for Disc: Activity as tolerated Weight Bearing Status after Di: As tolerated Bathing Instructions: Shower-keep dressing dry Wound/Incision Care: Ice to area for comfort, Change dressing, Reinforce dressing PRN CHECKS AFTER DISCHARGE: Checks after discharge: Check blood press - daily, Check blood sugar, ac/hs TREATMENT/EQUIPMENT ORDERS: Adaptive Equipment Issued: None CERTIFICATION STATEMENT: Certification Statement: Certification Statement: Based on the above finding, I certify that this patient is confined to the home and needs intermittent usp care, physical therapy and/or speech therapy, or continues to need occupational therapy.~ This patient is under my care, and I have initiated the establishment of the plan of care.~ This patient will be followed by myself or a community physician who will periodically review the plan of care. Home Meds Active Scripts Amoxicillin/Potassium Clav (AUGMENTIN 875-125 TABLET) 1 Each Tablet, 1 TAB PO BID, #28 TAB Prov:ANGELICA SEAMAN MD 02/17/18 Polyethylene Glycol 3350 (POLYETHYLENE GLYCOL 3350) 17 Gm Powd.pack, 17 GM PO PRN DAILY PRN for CONSTIPATION, #30 PKT Prov:ANGELICA SEAMAN MD 02/17/18 Docusate Sodium (COLACE) 100 Mg Capsule, 100 MG PO BID, #60 CAP Prov:ANGELICA SEMAAN MD 02/17/18 Reported Medications Rivaroxaban (XARELTO) 20 Mg Tablet, 20 MG PO DAILYWSUP, TAB 02/15/18 Ondansetron Hcl (ZOFRAN) 8 Mg Tablet, 8 MG PO BID PRN for NAUSEA/VOMITING 01/29/18 Morphine Sulfate (MORPHINE SULFATE) 15 Mg Tablet, 15 MG PO BID 01/29/18 Zolpidem Tartrate (AMBIEN) 5 Mg Tablet, 1 TAB PO QHS PRN for SEE COMMENTS 12/31/17 Potassium Chloride (POTASSIUM CHLORIDE) 20 Meq Tablet.er, 20 MEQ PO DAILY 11/19/17 Metoprolol Tartrate (METOPROLOL TARTRATE) 50 Mg Tablet, 25 MG PO HS 11/19/17 Simvastatin (SIMVASTATIN) 20 Mg Tablet, 20 MG PO HS for FOR CHOLESTEROL 08/14/17 Oxycodone/Apap 10-325 (PERCOCET 10-325 MG TABLET) 1 Each Tablet, 1 TAB PO PRN Q6HRS PRN for PAIN 08/14/17 SUSAN GREENE MD Apr 02, 2018 12:42
[2018-04-02] MEDS ORDERED: GUAI5SYR PO (12:50)
[2018-04-02] MEDS ORDERED: LIDO15SO2 SWSW (12:50)
[2018-04-02] MEDS ORDERED: Pantoprazole PO (12:50)
[2018-04-02 15:13] VITALS: BP 103/49
[2018-04-02] MEDS ORDERED: HEPARIN PF 500 UNIT/5 ML DISP.SYRIN. IV ONE (15:30)
== END 2018-04-02 18:07 | disposition home health service (06) | DRG 871 ==
LOC: 6 SOUTH 13:19
PROVIDERS: ADMIT Internal Medicine; ATTEND Internal Medicine
DX: A41.9 Sepsis, unspecified organism (principal); E43 Unspecified severe protein-calorie malnutrition; C07 Malignant neoplasm of parotid gland; C44.629 Squamous cell carcinoma of skin of left upper limb, including shoulder; I10 Essential (primary) hypertension; G89.29 Other chronic pain; C44.320 Squamous cell carcinoma of skin of unspecified parts of face; R11.2 Nausea with vomiting, unspecified; Z66 Do not resuscitate; E86.0 Dehydration; E87.6 Hypokalemia; I48.91 Unspecified atrial fibrillation; D63.8 Anemia in other chronic diseases classified elsewhere; E78.5 Hyperlipidemia, unspecified; I25.10 Atherosclerotic heart disease of native coronary artery without angina pectoris; F32.9 Major depressive disorder, single episode, unspecified; H66.92 Otitis media, unspecified, left ear; E11.9 Type 2 diabetes mellitus without complications; G47.33 Obstructive sleep apnea (adult) (pediatric); K21.9 Gastro-esophageal reflux disease without esophagitis; M19.90 Unspecified osteoarthritis, unspecified site; Z82.49 Family history of ischemic heart disease and other diseases of the circulatory system; Z92.21 Personal history of antineoplastic chemotherapy; Z85.828 Personal history of other malignant neoplasm of skin; Z79.01 Long term (current) use of anticoagulants; Z80.9 Family history of malignant neoplasm, unspecified; Z82.3 Family history of stroke; Z85.818 Personal history of malignant neoplasm of other sites of lip, oral cavity, and pharynx; Z95.5 Presence of coronary angioplasty implant and graft; Z68.25 Body mass index [BMI] 25.0-25.9, adult
CPT/HCPCS: 36415; 70490; 71046; 77336; 77412; 80048; 80053; 83735; 84100; 84439; 84443; 84481; 85007; 85025; 87040; 93005; 93306; 94640; C9113; J1160; J1170; J1956; J2020; J2270; J2405; J2543; J3475; 97110; 97116; 97530; 97535

== ENCOUNTER 2018-08-19 12:07 | Inpatient (IN) | payer MEDICARE, OTHER ==
[~2018-08-19] VITALS: Ht 177.8 cm; Wt 82.1 kg
[2018-08-19] VITALS (8 sets, daily range): BP systolic 71–126; BP diastolic 48–69
[~2018-08-19 12:07] MED LIST changes: -GABA-586 PO; +GABA300C18 PO; +GUAI5SYR PO; -HYDR-2758 PO; +HYDR-2761 PO; -HYDR-2766 PO; +HYDR-2769 PO; +HYDR-3135 PO; -HYDR-963 PO; +LIDO15SO2 SWSW; -OXYC-328 PO; +OXYC1TAB22 PO; +POLY17PO28 PO; -POLY17PO3 PO; +Pantoprazole PO
[2018-08-19 13:38] LABS: BASO # 0.1 x10^3/uL (0.0-0.2); BASO % 1 % (0-3); EOS # 0.1 x10^3/uL (0.0-0.7); EOS % 1 % (0-3); HEMATOCRIT 35.4 % (39.0-53.0); HEMOGLOBIN 11.9 g/dL (13.0-17.5); LYMPH # 0.8 x10^3/uL (1.0-4.8); LYMPH % 9 % (24-48); MEAN CORPUSCULAR HEMOGLOBIN 30 pg (25-35); MEAN CORPUSCULAR HGB CONC 34 g/dL (31-37); MEAN CORPUSCULAR VOLUME 90 fL (79-100); MONO # 0.7 x10^3/uL (0.0-1.1); MONO % 7 % (0-9); NEUT # 7.3 x10^3uL (1.8-7.7); NEUT % 82 % (31-73); PLATELET COUNT 396 x10^3/uL (140-400); RED BLOOD COUNT 3.93 x10^6/uL (4.30-5.70); RED CELL DISTRIBUTION WIDTH 13.9 % (11.5-14.5); WHITE BLOOD COUNT 8.9 x10^3/uL (4.0-11.0)
[2018-08-19 13:41] LABS: BILIRUBIN,URINE SMALL (NEG); CLARITY,URINE CLEAR; COLOR,URINE AMBER; NITRITE,URINE NEGATIVE (NEG); PH,URINE 5.5; PROTEIN,URINE NEGATIVE (NEG-TRACE)
--- NOTE | 2018-08-19 13:44 | RAD ---
Chest radiograph 08/19/2018 1:29 PM INDICATION: Fall, history of parotid cancer and dizziness. COMPARISON: March 26, 2018 TECHNIQUE: Portable upright frontal view of the chest is provided. FINDINGS: The cardiomediastinal silhouette is within normal limits. Right chest wall infusion port catheter is identified with the distal tip projecting over the cavoatrial junction. There are no pleural effusions. There is no pulmonary vascular congestion. There is no pneumothorax. The lungs are clear. No significant osseous abnormality is identified. IMPRESSION: No acute cardiopulmonary process. Electronically signed by: Tiara Emanuel MD (08/19/2018 1:41 PM) [id number]
[2018-08-19 13:45] LABS: PROTHROMBIN TIME PATIENT 13.8 SEC (11.7-14.0)
[2018-08-19 13:45] LABS: BACTERIA,URINE 0 /HPF (0-FEW); RBC,URINE 0 /HPF (0-2); WBC,URINE 0 /HPF (0-4)
[2018-08-19] MEDS ORDERED: IV NORMAL SALINE 1000ML BAG 1,000 ML IV ONE (13:45)
[2018-08-19 13:46] LABS: CALCIUM 9.1 mg/dL (8.5-10.1); GFR 74.3
[2018-08-19 13:53] LABS: ALBUMIN/GLOBULIN RATIO 0.8 (1.0-1.7); MAGNESIUM 1.9 mg/dL (1.8-2.4); TOTAL BILIRUBIN 0.3 mg/dL (0.2-1.0); TOTAL PROTEIN 6.8 g/dL (6.4-8.2)
[2018-08-19 13:59] LABS: CREATINE KINASE 31 U/L (39-308)
[2018-08-19] MEDS ORDERED: dilTIAZem INJ 125 MG in IV DEXTROSE 5% 100ML 100 ML IV ONE (14:15)
--- NOTE | 2018-08-19 14:23 | RAD ---
CT HEAD WO CONTRAST Indication: fall, hx of parotid ca Exposure: One or more of the following individualized dose reduction techniques were utilized for this examination: 1. Automated exposure control 2. Adjustment of the mA and/or kV according to patient size 3. Use of iterative reconstruction technique. Comparison: February 13, 2018. More recent study not available at this time. FINDINGS: No acute intracranial hemorrhage, mass effect, midline shift or abnormal extra-axial fluid collection. Ventricles and sulci are symmetric and similar to prior. Leal-white matter distinction is maintained. The orbits are only partially seen, grossly unremarkable. No large scalp hematoma is identified. Aggressive appearing bone destruction of the left auditory canals petrous bone and mastoid region, and zygomatic arch, are again identified. Slice thickness was different on the prior exam, but a similar pattern of bone destruction was noted at that time. Previously seen soft tissue mass is no longer identified. No evidence of new depressed skull fracture. The right mastoids and partially visualized paranasal sinuses are clear. Opacification with thin the remaining left mastoid air cells is again seen. IMPRESSION: 1. No evidence of acute intracranial hemorrhage or mass effect. 2. Bone destruction in the region of the left petrous bone, mastoids, auditory canals and zygomatic arch are again identified. Possibilities include neoplastic bone destruction or osteomyelitis. Note that a similar pattern of bone destruction was seen previously. Electronically signed by: Andry Zarate MD (08/19/2018 2:20 PM) [id number]
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
[2018-08-19] MEDS ORDERED: dilTIAZem IV PUSH 25 MG/5 ML VIAL IVP ONE (15:15)
[2018-08-19] MEDS ORDERED: ONDANSETRON PF 4 MG/2 ML VIAL. IV PRN ×2 (15:15→16:45)
[2018-08-19] MEDS ORDERED: MORPHINE SULFATE 4 MG/ML VIAL. IV PRN (15:15)
--- NOTE | 2018-08-19 16:17 | EKG ---
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
[2018-08-19] MEDS ORDERED: ZOLPIDEM 5 MG TABLET. PO PRN (16:45)
[2018-08-19] MEDS ORDERED: DIGOXIN IV 500 MCG/2 ML AMPUL. IV ONE (16:45)
[2018-08-19] MEDS ORDERED: ANTI-COAG MONITOR BY PHARMACY. MC PRN (16:45)
[2018-08-19] MEDS ORDERED: TEMAZEPAM 7.5 MG CAPSULE PO PRN (16:45)
[2018-08-19] MEDS ORDERED: ONDANSETRON ODT 4 MG TAB.RAPDIS. PO PRN (16:45)
[2018-08-19] MEDS ORDERED: RIVAROXABAN 10 MG TABLET. PO SCH (17:00)
[2018-08-19] MEDS ORDERED: FLUO40CA9 PO (17:12)
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
--- NOTE | 2018-08-19 18:15 | NUR ---
The patient, ZOHAIB MENDEZ, 68 y/o, M admitted by SURAJ RIVERA MD, was given written information regarding hospital policies, unit procedures and contact persons. Valuables were checked.
[2018-08-19] MEDS ORDERED: CALCIUM ALGINATE TOP (19:14)
[2018-08-19] MEDS: METOPROLOL TART IMMED RELEASE 50 MG TABLET. PO SCH (20:28)
[2018-08-19] MEDS: MORPHINE IR 15 MG TABLET PO SCH (20:29)
[2018-08-19] MEDS: ACETAMINOPHEN 325 MG TABLET. PO PRN (20:29)
[2018-08-19] MEDS: oxyCODONE/APAP 10/325 1 TAB TABLET PO PRN (20:29)
[2018-08-19] MEDS: DOCUSATE SODIUM 100 MG CAPSULE. PO SCH (20:29)
[2018-08-19] MEDS ORDERED: dilTIAZem INJ 125 MG in IV DEXTROSE 5% 100ML 100 ML IV PRN (21:30)
[2018-08-20 01:36] VITALS: BP 102/58
--- NOTE | 2018-08-20 01:57 | NUR ---
Patient converted to SR after 3 second pause at 23:05. SBP 90s to 100s with HR in the 50s. Titrated Cardizem drip off. Patient up to bathroom. Patient reports he feels "better than he has in a long time". at bedside.
[2018-08-20 03:00] VITALS: BP 88/56
[2018-08-20] MEDS: oxyCODONE/APAP 10/325 1 TAB TABLET PO PRN (05:48)
[2018-08-20 05:51] VITALS: BP 111/65
[2018-08-20 07:00] VITALS: BP 117/56
[2018-08-20 07:01] LABS: BASO % 1 % (0-3); EOS # 0.2 x10^3/uL (0.0-0.7); EOS % 3 % (0-3); HEMATOCRIT 30.6 % (39.0-53.0); HEMOGLOBIN 10.3 g/dL (13.0-17.5); LYMPH # 1.1 x10^3/uL (1.0-4.8); LYMPH % 17 % (24-48); MEAN CORPUSCULAR HEMOGLOBIN 31 pg (25-35); MEAN CORPUSCULAR HGB CONC 34 g/dL (31-37); MEAN CORPUSCULAR VOLUME 91 fL (79-100); MONO # 0.6 x10^3/uL (0.0-1.1); MONO % 10 % (0-9); NEUT # 4.3 x10^3uL (1.8-7.7); NEUT % 69 % (31-73); PLATELET COUNT 311 x10^3/uL (140-400); RED BLOOD COUNT 3.38 x10^6/uL (4.30-5.70); RED CELL DISTRIBUTION WIDTH 14.1 % (11.5-14.5); WHITE BLOOD COUNT 6.2 x10^3/uL (4.0-11.0)
[2018-08-20 07:22] LABS: CALCIUM 8.3 mg/dL (8.5-10.1); CREATININE 0.9 mg/dL (0.7-1.3); GFR 83.9; POTASSIUM 4.1 mmol/L (3.5-5.1)
[2018-08-20] MEDS: METOPROLOL TART IMMED RELEASE 50 MG TABLET. PO SCH (08:41)
[2018-08-20] MEDS: MORPHINE IR 15 MG TABLET PO SCH (08:42)
[2018-08-20] MEDS ORDERED: POLYETHYLENE GLYCOL 3350 17 GM PACKET. PO PRN (09:00)
[2018-08-20] MEDS: DOCUSATE SODIUM 100 MG CAPSULE. PO SCH (09:00)
[2018-08-20] MEDS: ACETAMINOPHEN 325 MG TABLET. PO PRN (10:56)
[2018-08-20 11:00] VITALS: BP 100/55
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
[2018-08-20] MEDS ORDERED: DILT120C85 PO (13:50)
--- NOTE | 2018-08-20 19:21 | DS ---
DATE OF DISCHARGE: 08/20/2018 ADMISSION DIAGNOSES: Near syncope and atrial fibrillation with rapid ventricular response. DISCHARGE DIAGNOSES: Resolving atrial fibrillation with rapid ventricular response, history of parotid cancer, history of skin cancer, getting radiation therapy currently. CONSULTS: Cardiology. PROCEDURES: None. HOSPITAL COURSE: The patient is a pleasant 68-year-old male who presented with a near syncopal episode. He was admitted. He was in AFib. He is already on Xarelto. We gave him Cardizem and digoxin. He is converted back to sinus rhythm now. This morning, I saw him and examined him. His heart tones were normal. His lungs were clear. Abdomen was soft. Extremities, no edema. We plan to discharge. DISPOSITION: Home. ACTIVITY: As tolerated. DIET: Cardiac. MEDICATIONS: Please see the MRAD. TOTAL TIME: 35 minutes. LINDSEY SPRING DO DR: JAKE/edith JOB#: [id number] / [id number]
== END 2018-08-20 14:00 | disposition home or self-care (01) | DRG 309 ==
LOC: ER 12:07 → 2 SOUTH 14:37
PROVIDERS: ADMIT Internal Medicine; ATTEND Internal Medicine
DX: I48.0 Paroxysmal atrial fibrillation (principal); E44.0 Moderate protein-calorie malnutrition; C07 Malignant neoplasm of parotid gland; C44.90 Unspecified malignant neoplasm of skin, unspecified; D63.8 Anemia in other chronic diseases classified elsewhere; E11.9 Type 2 diabetes mellitus without complications; E78.00 Pure hypercholesterolemia, unspecified; E78.5 Hyperlipidemia, unspecified; G51.0 Bell's palsy; I10 Essential (primary) hypertension; M19.90 Unspecified osteoarthritis, unspecified site; I25.10 Atherosclerotic heart disease of native coronary artery without angina pectoris; Z79.01 Long term (current) use of anticoagulants; Z85.818 Personal history of malignant neoplasm of other sites of lip, oral cavity, and pharynx; Z92.21 Personal history of antineoplastic chemotherapy; Z85.828 Personal history of other malignant neoplasm of skin; Z98.61 Coronary angioplasty status
CPT/HCPCS: 36415; 70450; 71045; 77412; 80048; 80053; 81001; 82553; 83690; 83735; 83880; 84484; 85025; 85610; 93005; 96361; 96365; 96366; 96376; J1160; J3490; J7030; 99285-25

== ENCOUNTER 2019-03-26 16:38 | Inpatient (IN) | payer OTHER ==
[~2019-03-26] VITALS: Ht 177.8 cm; Wt 71.4 kg
[~2019-03-26 16:38] MED LIST changes: +CALCIUM ALGINATE TOP; +DILT120C99 PO; -MELA3TAB2 PO; +MELA3TAB56 PO; +SIMV10TA15 PO; -SIMV10TA3 PO; +SIMV20TA18 PO; -SIMV20TA3 PO
[2019-03-26 19:57] VITALS: BP 119/77
[2019-03-26] MEDS ORDERED: METHYL SALICYLATE/MENTHOL TOPICAL OINTMENT 57GM TUBE. TP PRN (20:00)
[2019-03-26] MEDS ORDERED: ONDANSETRON PF 4 MG/2 ML VIAL. IVP PRN (20:00)
[2019-03-26] MEDS ORDERED: POLYETHYLENE GLYCOL 3350 17 GM PACKET. PO PRN (20:00)
[2019-03-26 20:16] LABS: HEMATOCRIT 21.9 % (39.0-53.0); HEMOGLOBIN 7.6 g/dL (13.0-17.5)
[2019-03-26] MEDS: MORPHINE SULFATE 2 MG/ML VIAL. IV PRN ×2 (20:24→22:25)
[2019-03-26] MEDS: oxyCODONE/APAP 10/325 1 TAB TABLET PO PRN (20:45)
[2019-03-26] MEDS: DOCUSATE SODIUM 100 MG CAPSULE. PO SCH (22:25)
[2019-03-26] MEDS: METOPROLOL TART IMMED RELEASE 50 MG TABLET. PO SCH (22:26)
[2019-03-26 23:35] VITALS: BP 111/63
[2019-03-27] MEDS: MORPHINE SULFATE 4 MG/ML VIAL. IV PRN ×6 (00:05→23:17)
[2019-03-27 03:45] VITALS: BP 99/53
[2019-03-27] MEDS ORDERED: INFLUENZA VAX SCREEN BY RX. MC ONE (04:15)
[2019-03-27] MEDS ORDERED: OXYC1TAB22 PO (06:44)
[2019-03-27] MEDS ORDERED: ASPI-630 PO (06:44)
[2019-03-27] MEDS ORDERED: LISI2.5T PO (06:44)
[2019-03-27] MEDS ORDERED: SIMV20TA18 PO (06:44)
[2019-03-27] MEDS ORDERED: POLY17PO29 PO (06:44)
[2019-03-27] MEDS ORDERED: APIX5TAB PO (06:44)
[2019-03-27] MEDS ORDERED: POTA90TA2 PO (06:44)
[2019-03-27] MEDS ORDERED: PRED-220 PO (06:44)
[2019-03-27] MEDS ORDERED: FENT1PAT19 TP (06:44)
[2019-03-27] MEDS ORDERED: DOCU-109 PO (06:44)
[2019-03-27] MEDS ORDERED: PREG75CA PO (06:44)
[2019-03-27] MEDS ORDERED: DIGO125T PO (06:44)
[2019-03-27] MEDS ORDERED: METO50TA6 PO (06:44)
[2019-03-27 07:23] LABS: BASO % 1 % (0-3); EOS # 0.1 x10^3/uL (0.0-0.7); EOS % 3 % (0-3); HEMATOCRIT 21.1 % (39.0-53.0); HEMOGLOBIN 7.2 g/dL (13.0-17.5); LYMPH # 0.5 x10^3/uL (1.0-4.8); LYMPH % 12 % (24-48); MEAN CORPUSCULAR HEMOGLOBIN 32 pg (25-35); MEAN CORPUSCULAR HGB CONC 34 g/dL (31-37); MEAN CORPUSCULAR VOLUME 94 fL (79-100); MONO # 0.6 x10^3/uL (0.0-1.1); MONO % 12 % (0-9); NEUT # 3.4 x10^3/uL (1.8-7.7); NEUT % 73 % (31-73); PLATELET COUNT 248 x10^3/uL (140-400); RED BLOOD COUNT 2.24 x10^6/uL (4.30-5.70); RED CELL DISTRIBUTION WIDTH 15.5 % (11.5-14.5); WHITE BLOOD COUNT 4.6 x10^3/uL (4.0-11.0)
[2019-03-27 07:47] VITALS: BP 98/54
[2019-03-27 07:48] LABS: ALBUMIN 1.7 g/dL (3.4-5.0); ALBUMIN/GLOBULIN RATIO 0.5 (1.0-1.7); CALCIUM 7.6 mg/dL (8.5-10.1); CREATININE 0.8 mg/dL (0.7-1.3); GFR 96.1; POTASSIUM 3.9 mmol/L (3.5-5.1); TOTAL BILIRUBIN 0.2 mg/dL (0.2-1.0); TOTAL PROTEIN 4.8 g/dL (6.4-8.2)
[2019-03-27] MEDS: METOPROLOL TART IMMED RELEASE 50 MG TABLET. PO SCH ×2 (09:00→21:00)
[2019-03-27] MEDS: LISINOPRIL 5 MG TABLET. PO SCH (09:00)
[2019-03-27] MEDS: predniSONE 10 MG TABLET PO SCH (09:00)
[2019-03-27] MEDS: DOCUSATE SODIUM 100 MG CAPSULE. PO SCH ×2 (09:00→21:10)
[2019-03-27] MEDS: POLYETHYLENE GLYCOL 3350 17 GM PACKET. PO SCH (09:00)
[2019-03-27] MEDS ORDERED: FLU VAX QS 2019-20 (36MOS+)/PF 0.5 ML SYRINGE. VAX IM ONE (09:00)
[2019-03-27] MEDS ORDERED: NON FORMULARY ITEM (Potassium Gluconate 90 MG) PO SCH (09:00)
[2019-03-27] MEDS: DIGOXIN 125 MCG TABLET. PO SCH (09:00)
[2019-03-27] MEDS: fentaNYL 75MCG/HR PATCH 1 PATCH PATCH.TD72 TD SCH (09:39)
[2019-03-27] MEDS: LIDOCAINE (700MG/PATCH) PATCH. TD SCH (09:40)
--- NOTE | 2019-03-27 10:09 | NUR ---
Wound Care Wound care consult for CA lesion to LFA and Left ear. Pt left ear lesion is dry and crusty with small amount of drainage, covered with foam. Pt LFA was dressed yesterday and due to bleeding with dressing change we did not remove dressing at this time. Left Vpad with RN if surgeon removes dressing and bleeding occurs. Pt buttocks are reddened but blanchable, foam dressing left in place for padding. No other wounds noted at this time, WC will continue to follow for possible changes.
--- NOTE | 2019-03-27 11:27 | HP ---
ADMIT DATE: 03/26/2019 HISTORY OF PRESENT ILLNESS: The patient is a 68-year-old male patient who was admitted recently to [facility] with bleeding from his fungating tumor in his left forearm. The bleeding is clearly arterial and requires pressor support and patient has required about 5 units of packed RBCs. He has been in and out of the hospital on numerous occasions because of bleeding and he has been on hospice, but he revoked hospice because of active bleeding and comes to the Emergency Room and was admitted to the hospital numerous times before and therefore a decision was made to transfer him to [facility] as I have discussed with them that this tumor is actually enlarging and the bleed is difficult to control and I recommended amputation of his left forearm and therefore he was transferred to [facility] to consult the orthopedic surgeon with that in mind. The bleeds are intermittent and unpredictable and I do not whether any coiling can be also done. PAST MEDICAL HISTORY: Significant for: 1. 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 2. Extensive left forearm squamous cell carcinoma. 3. Coronary artery disease, status post percutaneous coronary intervention stent deployment. 4. Atrial fibrillation, rate controlled. He was on apixaban, it was discontinued because of recurrent episodes of bleeding. 5. Hypertension. 6. Hyperlipidemia. 7. Obstructive sleep apnea. 8. Gastroesophageal reflux disease. 9. Type 2 diabetes mellitus. 10. Severe protein-calorie malnutrition. 11. Severe constipation, likely due to opioid induced. PAST SURGICAL HISTORY: Significant for PCI with drug-eluting stent deployment, resection of the left parotid gland with resultant left facial nerve paralysis. FAMILY HISTORY: Significant for type 2 diabetes and hypertension. SOCIAL HISTORY: He is and lives with his . He does not smoke or drinks alcohol or use any recreational drugs. ALLERGIES: He has no known drug allergies. MEDICATIONS: He is currently on following medications: He was on apixaban that was discontinued and also aspirin was discontinued. He is on digoxin 125 mcg once a day and simvastatin 20 mg at bedtime, metoprolol tartrate 50 mg twice a day, lisinopril 2.5 mg daily, fentanyl patch 75 mcg per hour topically q. 72 hours, oxycodone/APAP 10/325 one tablet 4 times a day. He is also on Lyrica 75 mg twice a day, potassium gluconate 90 mg daily, Colace 100 mg twice a day with meals, polyethylene glycol 17 grams twice a day with meals and polyethylene glycol as needed, prednisone 10 mg once a day. REVIEW OF SYSTEMS: As per history of present illness. PHYSICAL EXAMINATION GENERAL: When I saw him this morning, he was pale, is cachectic, but no jaundice, cyanosis or thyromegaly. No jugular venous distention. Marked bilateral lower limb edema. VITAL SIGNS: His heart rate was 68, blood pressure was 98/54, temperature was 98.8, respiratory rate was 18 and oxygen saturation was 99% on room air. HEAD, EYES, EARS, NOSE AND THROAT: Showed normocephalic, atraumatic. NECK: Supple. HEART: Showed normal first and second heart sounds. No gallop, rub or murmur. CHEST: Clear to auscultation. No crepitation or rhonchi. ABDOMEN: Scaphoid, soft, nontender. NEUROLOGIC: He is awake, alert, responding appropriately. He has traumatic left-sided lower motor neuron facial palsy after resection of his left parotid gland; however, he is able to move all his extremities without difficulty, has used fungating mass on the dorsal aspect of the left forearm that bleeds on numerous occasions. LABORATORY DATA: This morning showed a white cell count 4600, hemoglobin 7.2, hematocrit 21, MCV 94 and platelet count of 248,000. His chemistry showed a serum sodium 142, potassium 3.9, chloride 109, bicarbonate 28, anion gap of 5, BUN of 10, creatinine 0.8. His serum sodium was 142, potassium 3.9, chloride 109, bicarbonate 28, anion gap of 5, BUN 10, creatinine 0.8, estimated GFR was 96 mL per minute, his glucose 91, calcium was 7.6. Total bilirubin, AST, ALT, alkaline phosphatase were normal. PLAN: My plan is to consult the orthopedic surgeon. I would also consult the vascular surgeon if they have any other ideas or options available and perhaps even the interventional radiologist. I am not sure whether coiling would be also helpful to prevent this recurrence of bleeding in this massive fungating squamous cell carcinoma. DEMETRIO FAULKNER MD DR: INA/edith JOB#: [id number] / [id number]
[2019-03-27 11:47] VITALS: BP 114/56
--- NOTE | 2019-03-27 13:43 | PDOC ---
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 Also he has had squamous cell carcinoma of left forearm s/p bx 11/2017. Underwent 36 Gy radiation 03/2018 (treatment incomplete due to declining perfor kierra status at that time) and second course of treatment to 45 Gy for progression of disease 08/2018. Now with ongoing disease progression in forearm with uncontrolled bleeding resulting in severe anemia. Admitted to [place] with Hb 5.8 transfused to Hb 10.1 and transferred here. Now stable and feeling somewhat better. PE Lt facial paresis and ulceration around left ear covered with bandage Lt forearm covered with compression bandage, no visible oozing or staining with blood. Impression: Recurrent squamous cell carcinoma of left forearm. Previously seen with satellite nodules and bulky local recurrence in the past and not resectable with limb sparing surgery. No normal tissue tolerance left for more useful radiation. Need to consider pall embolization vs aggressive wide local excision vs amputation. Await surgical opinion. Discussed with patient, and Dr. Vega. HELEN ROSALES MD Mar 27, 2019 13:43
--- NOTE | 2019-03-27 13:47 | CONS ---
DATE OF CONSULTATION: 03/27/2019 ATTENDING PHYSICIAN: Irma Vega MD REASON FOR CONSULTATION: The patient was seen at the request of Dr. Vega for rehab evaluation about his neck pain. 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 The patient was in and out of hospital on numerous occasions because of bleeding and he has been on hospice, but he revoked hospice because of active bleeding and he was admitted in the hospital several times before. Therefore, addition was made to transfer him to [facility] for definitive treatment of bleeding and enlarging tumor in left forearm including consideration of amputation of left forearm. The patient admits the bleeding is intermittent and unpredictable. The patient also with known coronary artery disease, status post stenting; atrial fibrillation, on apixaban but was discontinued secondary to recurrent bleeding from left forearm tumor; hypertension; hyperlipidemia; obstructive sleep apnea; gastroesophageal reflux disease; type 2 diabetes mellitus; protein-calorie malnutrition; constipation secondary to opioids. The patient had PCI with drug-eluting stent deployment, resection of left parotid gland with resultant left facial nerve paralysis. Family history of diabetes mellitus and hypertension. He lives with his in [place], [place] at home. The patient is not known allergic to any medication. He admits pain over left side of the neck and left upper back area going on for a long time. He had CT scan evidence of multilevel degenerative disk disease and degenerative joint disease of cervical vertebrae. PHYSICAL EXAMINATION: The patient on physical examination today revealed a middle-aged male. He is alert, oriented to time, place, person and circumstance and follows commands appropriately. He had stiffness of his neck. The patient had pain on range of motion of his cervical spine with moderate degree of cervical paraspinal muscle spasm and tenderness to palpation over cervical paraspinal muscles extending over to upper trapezius muscle area, left side more than right side. The patient had obvious left central facial paresis. The patient had 4+/5 grade muscle strength overall. He had some degree of hand muscle intrinsic atrophy. I have not tested his mobility skills as he is eating lunch when I examined him in bed and he had dressing to his left forearm, but as per his at bedside, he has been independent with mobility and self-care skills, not using an assistive device, though he had a cane at home, which he does not use it all the time. ASSESSMENT: Chronic neck pain with radiological evidence of degenerative disk disease and degenerative joint disease of cervical vertebrae without any clinical evidence of ongoing cervical radiculopathy. The patient is status post left parotid gland carcinoma, status post resection with resultant left facial palsy, extensive left forearm squamous cell carcinoma with intermittent bleeding, coronary artery disease, status post stenting, atrial fibrillation, hypertension, hyperlipidemia, obstructive sleep apnea, gastroesophageal reflux disease, type 2 diabetes mellitus, severe protein-calorie malnutrition. RECOMMENDATIONS: To consider trigger point injections to his cervical paraspinal muscles when he is medically stable to see if that might help ease some of the discomfort. He also needs to be considered for Botox injection to his cervical paraspinal muscles with some of the tightness and spasms to start him on muscle relaxant medication. Dr. Vega, I appreciate asking me to participate in the care of this interesting patient. I will be glad to follow him with you as needed for the rehabilitation. JOESPH JEWELL MD DR: LUZ/edith JOB#: [id number] / [id number]
[2019-03-27] MEDS: tiZANidine 4 MG TABLET. PO SCH ×2 (13:57→21:10)
[2019-03-27 15:00] VITALS: BP 100/59
--- NOTE | 2019-03-27 15:09 | NUR ---
SW following pt for dc planning. Chart reviewed and discussed with RN. Pt lives at home with sposue. Wound care following, PT/OT ordered. SW will continue to follow as needed.
[2019-03-27] MEDS: oxyCODONE/APAP 10/325 1 TAB TABLET PO PRN (17:16)
--- NOTE | 2019-03-27 17:55 | PDOC ---
Provider Note Provider Note I have reviewed this case. I recommend orthopedic oncologist opinion such as at [facility]. I have never performed or seen a forearm amputation and am reluctant to render further opinion on this complex case. LIAM HOPE MD Mar 27, 2019 17:55
[2019-03-27 19:39] VITALS: BP 86/46
[2019-03-27] MEDS: PATCH REMOVAL. MC SCH (21:00)
[2019-03-27 21:07] LABS: HEMATOCRIT 23.5 % (39.0-53.0)
[2019-03-27 23:20] VITALS: BP 82/42
[2019-03-28] VITALS (11 sets, daily range): BP systolic 81–118; BP diastolic 47–72
[2019-03-28] MEDS: oxyCODONE/APAP 10/325 1 TAB TABLET PO PRN ×2 (00:35→21:47)
[2019-03-28] MEDS: MORPHINE SULFATE 4 MG/ML VIAL. IV PRN ×6 (01:50→23:07)
[2019-03-28 05:24] LABS: RED BLOOD COUNT 2.17 x10^6/uL (4.30-5.70); RED CELL DISTRIBUTION WIDTH 15.6 % (11.5-14.5); WHITE BLOOD COUNT 4.5 x10^3/uL (4.0-11.0)
[2019-03-28 05:31] LABS: HEMATOCRIT 20.5 % (39.0-53.0)
[2019-03-28 05:41] LABS: ALBUMIN 1.7 g/dL (3.4-5.0); ALBUMIN/GLOBULIN RATIO 0.5 (1.0-1.7); CALCIUM 7.7 mg/dL (8.5-10.1); CREATININE 0.7 mg/dL (0.7-1.3); GFR 112.1; POTASSIUM 3.8 mmol/L (3.5-5.1); TOTAL BILIRUBIN 0.2 mg/dL (0.2-1.0)
[2019-03-28] MEDS: tiZANidine 4 MG TABLET. PO SCH ×3 (05:59→21:48)
[2019-03-28] MEDS: METOPROLOL TART IMMED RELEASE 50 MG TABLET. PO SCH ×2 (09:00→21:00)
[2019-03-28] MEDS: LISINOPRIL 5 MG TABLET. PO SCH (09:00)
--- NOTE | 2019-03-28 11:17 | PDOC ---
PROGRESS NOTES Subjective Subjective He still c/o neck pain and headaches and not interested in any injections to his neck at present time and he states he took medicines for migraine in the past,which helped to some extent. Objective Objective Vital Signs Date Time Temp Pulse Resp B/P (MAP) Pulse Ox O2 Delivery O2 Flow Rate FiO2 03/28/19 09:27 16 Room Air 03/28/19 09:00 65 86/47 03/28/19 07:54 98.1 95 98.1 Intake and Output 03/28/19 06:59 Intake Total 470 ml Output Total 200 ml Balance 270 ml Intake Oral 470 ml Output Urine Total 200 ml Physical Exam Physical Exam He is alert and seeems to be more comfortable this AM and he still keeps his neck stff with tenderness to palpation over cervical paraspinal muscles with painfully limited cervical spine ROM. Plan Plan of Care To try fioricet for headaches. Comment Review of Relevant I have reviewed the following items daniella (where applicable) has been applied. Labs Laboratory Tests Test 03/26/19 20:08 03/27/19 05:30 03/27/19 21:00 03/28/19 05:00 Hemoglobin 7.6 g/dL (13.0-17.5) 7.2 g/dL (13.0-17.5) 8.0 g/dL (13.0-17.5) 7.0 g/dL (13.0-17.5) Hematocrit 21.9 % (39.0-53.0) 21.1 % (39.0-53.0) 23.5 % (39.0-53.0) 20.5 % (39.0-53.0) White Blood Count 4.6 x10^3/uL (4.0-11.0) 4.5 x10^3/uL (4.0-11.0) Red Blood Count 2.24 x10^6/uL (4.30-5.70) 2.17 x10^6/uL (4.30-5.70) Mean Corpuscular Volume 94 fL (79-100) 94 fL (79-100) Mean Corpuscular Hemoglobin 32 pg (25-35) 32 pg (25-35) Mean Corpuscular Hemoglobin Concent 34 g/dL (31-37) 34 g/dL (31-37) Red Cell Distribution Width 15.5 % (11.5-14.5) 15.6 % (11.5-14.5) Platelet Count 248 x10^3/uL (140-400) 253 x10^3/uL (140-400) Neutrophils (%) (Auto) 73 % (31-73) Lymphocytes (%) (Auto) 12 % (24-48) Monocytes (%) (Auto) 12 % (0-9) Eosinophils (%) (Auto) 3 % (0-3) Basophils (%) (Auto) 1 % (0-3) Neutrophils # (Auto) 3.4 x10^3/uL (1.8-7.7) Lymphocytes # (Auto) 0.5 x10^3/uL (1.0-4.8) Monocytes # (Auto) 0.6 x10^3/uL (0.0-1.1) Eosinophils # (Auto) 0.1 x10^3/uL (0.0-0.7) Basophils # (Auto) 0.0 x10^3/uL (0.0-0.2) Sodium Level 142 mmol/L (136-145) 140 mmol/L (136-145) Potassium Level 3.9 mmol/L (3.5-5.1) 3.8 mmol/L (3.5-5.1) Chloride Level 109 mmol/L (98-107) 107 mmol/L (98-107) Carbon Dioxide Level 28 mmol/L (21-32) 30 mmol/L (21-32) Anion Gap 5 (6-14) 3 (6-14) Blood Urea Nitrogen 10 mg/dL (8-26) 13 mg/dL (8-26) Creatinine 0.8 mg/dL (0.7-1.3) 0.7 mg/dL (0.7-1.3) Estimated GFR (Cockcroft-Gault) 96.1 112.1 BUN/Creatinine Ratio 13 (6-20) 19 (6-20) Glucose Level 91 mg/dL (70-99) 100 mg/dL (70-99) Calcium Level 7.6 mg/dL (8.5-10.1) 7.7 mg/dL (8.5-10.1) Total Bilirubin 0.2 mg/dL (0.2-1.0) 0.2 mg/dL (0.2-1.0) Aspartate Amino Transf (AST/SGOT) 13 U/L (15-37) 11 U/L (15-37) Alanine Aminotransferase (ALT/SGPT) 10 U/L (16-63) 7 U/L (16-63) Alkaline Phosphatase 57 U/L (46-116) 53 U/L (46-116) Total Protein 4.8 g/dL (6.4-8.2) 5.0 g/dL (6.4-8.2) Albumin 1.7 g/dL (3.4-5.0) 1.7 g/dL (3.4-5.0) Albumin/Globulin Ratio 0.5 (1.0-1.7) 0.5 (1.0-1.7) Laboratory Tests Test 03/27/19 21:00 03/28/19 05:00 Hemoglobin 8.0 g/dL (13.0-17.5) 7.0 g/dL (13.0-17.5) Hematocrit 23.5 % (39.0-53.0) 20.5 % (39.0-53.0) White Blood Count 4.5 x10^3/uL (4.0-11.0) Red Blood Count 2.17 x10^6/uL (4.30-5.70) Mean Corpuscular Volume 94 fL (79-100) Mean Corpuscular Hemoglobin 32 pg (25-35) Mean Corpuscular Hemoglobin Concent 34 g/dL (31-37) Red Cell Distribution Width 15.6 % (11.5-14.5) Platelet Count 253 x10^3/uL (140-400) Sodium Level 140 mmol/L (136-145) Potassium Level 3.8 mmol/L (3.5-5.1) Chloride Level 107 mmol/L (98-107) Carbon Dioxide Level 30 mmol/L (21-32) Anion Gap 3 (6-14) Blood Urea Nitrogen 13 mg/dL (8-26) Creatinine 0.7 mg/dL (0.7-1.3) Estimated GFR (Cockcroft-Gault) 112.1 BUN/Creatinine Ratio 19 (6-20) Glucose Level 100 mg/dL (70-99) Calcium Level 7.7 mg/dL (8.5-10.1) Total Bilirubin 0.2 mg/dL (0.2-1.0) Aspartate Amino Transf (AST/SGOT) 11 U/L (15-37) Alanine Aminotransferase (ALT/SGPT) 7 U/L (16-63) Alkaline Phosphatase 53 U/L (46-116) Total Protein 5.0 g/dL (6.4-8.2) Albumin 1.7 g/dL (3.4-5.0) Albumin/Globulin Ratio 0.5 (1.0-1.7) Medications Current Medications Multi-Ingredient Ointment (Analgesic [place]) 1 meek PRN QID PRN TP MUSCLE PAIN; Start 03/26/19 at 20:00 Morphine Sulfate (Morphine Sulfate) 2 mg PRN Q2HR PRN IV PAIN Last administered on 03/26/19at 22:25; Start 03/26/19 at 20:00; Stop 03/26/19 at 23:06; Status DC Ondansetron HCl (Zofran) 4 mg PRN Q6HRS PRN IVP NAUSEA/VOMITING; Start 03/26/19 at 20:00 Polyethylene Glycol (miraLAX PACKET) 17 gm PRN DAILY PRN PO CONSTIPATION; Start 03/26/19 at 20:00 Digoxin (Lanoxin) 125 mcg DAILY PO ; Start 03/27/19 at 09:00 Docusate Sodium (Colace) 100 mg BID PO Last administered on 03/27/19at 21:10; Start 03/26/19 at 21:00 Fentanyl (Duragesic 75mcg/ Hr Patch) 1 patch Q3DAYS TD Last administered on 03/27/19at 09:39; Start 03/27/19 at 09:00 Lisinopril (Prinivil) 2.5 mg DAILY PO ; Start 03/27/19 at 09:00 Metoprolol Tartrate (Lopressor) 50 mg BID PO Last administered on 03/26/19at 22:26; Start 03/26/19 at 21:00 Oxycodone/ Acetaminophen (Percocet 10/325) 1 tab PRN Q6HRS PRN PO PAIN Last administered on 03/28/19at 00:35; Start 03/26/19 at 20:00 Polyethylene Glycol (miraLAX PACKET) 17 gm DAILY PO ; Start 03/27/19 at 09:00 Prednisone (Prednisone) 10 mg DAILY PO ; Start 03/27/19 at 09:00 Morphine Sulfate (Morphine Sulfate) 4 mg PRN Q2HR PRN IV PAIN Last administered on 03/28/19at 09:27; Start 03/26/19 at 23:15 Lidocaine (Lidoderm) 1 patch DAILY TD Last administered on 03/27/19at 09:40; Start 03/27/19 at 09:00 Miscellaneous (Lidoderm Patch Removal) 1 ea QHS MC Last administered on 03/27/19at 21:00; Start 03/27/19 at 21:00 Info (FLU VACCINE SCREEN per RX) 1 each 1X ONCE MC ; Start 03/27/19 at 04:15; Stop 03/27/19 at 04:16; Status UNV Influenza Virus Vaccine Quadrival (Afluria Quad 2019-20 (3yr Up) Syringe) 0.5 ml ONCE ONCE VAX IM ; Start 03/27/19 at 09:00; Stop 03/27/19 at 09:01; Status DC Non-Formulary Medication (Potassium Gluconate ) 90 mg DAILY PO ; Start 03/27/19 at 09:00; Status UNV Tizanidine HCl (Zanaflex) 4 mg Q8HRS PO Last administered on 03/28/19at 05:59; Start 03/27/19 at 14:00 Active Scripts Active Reported Prednisone (Prednisone) 10 Mg Tablet 1 Tab PO DAILY 5 Days Miralax (Polyethylene Glycol 3350) 17 Gm Powd.pack 1 Packet PO DAILY dissolve in water Colace (Docusate Sodium) 100 Mg Capsule 1 Cap PO BID 30 Days Potassium Gluconate 90 Mg Tablet 90 Mg PO DAILY Lyrica (Pregabalin) 75 Mg Capsule 1 Cap PO BID Percocet 10-325 Mg Tablet (Oxycodone/Acetaminophen) 1 Each Tablet 1 Tab PO QIDPRN PRN MDD 4 Tablet(s) 30 Days FENTANYL 75mcg/hr (Fentanyl) 1 Each Patch.td72 1 Patch TP Q3DAYS Aspirin 81 Mg Tab.chew 1 Tab PO DAILY Lisinopril 2.5 Mg Tablet 1 Tab PO DAILY Metoprolol Tartrate 50 Mg Tablet 1 Tab PO BID Eliquis (Apixaban) 5 Mg Tablet 5 Mg PO BID Simvastatin 20 Mg Tablet 1 Tab PO QHS Digoxin 125 Mcg Tablet 125 Mcg PO DAILY Zofran (Ondansetron Hcl) 8 Mg Tablet 8 Mg PO BID PRN Percocet 10-325 Mg Tablet (Oxycodone/Acetaminophen) 1 Each Tablet 1 Tab PO PRN Q6HRS PRN Vitals/I & O Vital Sign - Last 24 Hours 03/27/19 03/27/19 03/27/19 03/27/19 11:47 13:45 13:57 14:30 Temp 98.3 98.3 Pulse 71 Resp 18 17 17 17 B/P (MAP) 114/56 (75) Pulse Ox 98 O2 Delivery Room Air Room Air Room Air Room Air 03/27/19 03/27/19 03/27/19 03/27/19 15:00 16:23 17:16 19:39 Temp 98.8 97.3 98.8 97.3 Pulse 74 67 Resp 18 17 18 18 B/P (MAP) 100/59 (73) 86/46 (59) Pulse Ox 95 93 O2 Delivery Room Air Room Air Room Air 03/27/19 03/27/19 03/27/19 03/27/19 20:00 21:00 23:20 23:47 Temp 97.5 97.5 Pulse 67 61 Resp 18 B/P (MAP) 86/46 82/42 (55) Pulse Ox 95 95 O2 Delivery Room Air Room Air Room Air 03/28/19 03/28/19 03/28/19 03/28/19 00:35 01:35 01:50 02:20 Pulse Ox 95 95 95 95 O2 Delivery Room Air Room Air Room Air Room Air 03/28/19 03/28/19 03/28/19 03/28/19 03:15 04:59 05:29 07:54 Temp 97.7 98.1 97.7 98.1 Pulse 72 65 Resp 18 17 B/P (MAP) 113/54 (73) 86/47 (60) Pulse Ox 95 95 95 95 O2 Delivery Room Air Room Air Room Air Room Air 03/28/19 03/28/19 03/28/19 09:00 09:00 09:27 Pulse 65 65 Resp 16 B/P (MAP) 86/47 86/47 O2 Delivery Room Air Intake and Output 03/27/19 03/27/19 03/28/19 14:59 22:59 06:59 Intake Total 120 ml 300 ml 50 ml Output Total 200 ml Balance 120 ml 300 ml -150 ml JOESPH JEWELL MD Mar 28, 2019 11:17
[2019-03-28] MEDS: predniSONE 10 MG TABLET PO SCH (11:30)
[2019-03-28] MEDS: DOCUSATE SODIUM 100 MG CAPSULE. PO SCH ×2 (11:33→21:48)
[2019-03-28] MEDS: POLYETHYLENE GLYCOL 3350 17 GM PACKET. PO SCH (11:33)
[2019-03-28] MEDS: DIGOXIN 125 MCG TABLET. PO SCH (11:33)
[2019-03-28] MEDS: LIDOCAINE (700MG/PATCH) PATCH. TD SCH (11:34)
--- NOTE | 2019-03-28 14:06 | NUR ---
Per Physician request, [facility] phoned [facility] and made a transfer request. Spoke with Physician again- Pt is declining to be transferred and they are looking into outpatient follow up. [facility] cancelled transfer request. RN notified.
[2019-03-28] MEDS: BUTALB/APAP/CAFEIN 50/325/40MG TABLET. PO PRN (15:16)
--- NOTE | 2019-03-28 16:22 | PDOC ---
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 Also he has had squamous cell carcinoma of left forearm s/p bx 11/2017. Underwent 36 Gy radiation 03/2018 (treatment incomplete due to declining perfor kierra status at that time) and second course of treatment to 45 Gy for progression of disease 08/2018. Now with ongoing disease progression in forearm with uncontrolled bleeding resulting in severe anemia. Admitted to [place] with Hb 5.8 transfused to Hb 10.1 and transferred here. Now stable and feeling somewhat better. PE Lt facial paresis and ulceration around left ear covered with bandage Lt forearm covered with compression bandage, no visible oozing or staining with blood. Impression: Recurrent squamous cell carcinoma of left forearm. Previously seen with satellite nodules and bulky local recurrence in the past and not resectable with limb sparing surgery. No normal tissue tolerance left for more useful radiation. Dr Callahan's note appreciated. He cannot pursue amputation. Discussed with Dr. Zendejas, Embolization not likely to aid patient and would cause tissue necrosis that would be difficult to manage. Discussed with Dr. Campbell's office. They are willing to see patient. They desire MRI for evaluation. He is unsure how much intervention he is willing to do but willing to at least do MRI of left forearm. IF feasible while here, we will obtain MRI of left forearm and see patient Sunday. HELEN ROSALES MD Mar 28, 2019 16:22
[2019-03-28] MEDS: PATCH REMOVAL. MC SCH (21:00)
[2019-03-28 23:44] LABS: HEMATOCRIT 23.6 % (39.0-53.0); HEMOGLOBIN 8.2 g/dL (13.0-17.5)
[2019-03-29] MEDS: BUTALB/APAP/CAFEIN 50/325/40MG TABLET. PO PRN ×2 (01:01→21:20)
--- NOTE | 2019-03-29 03:08 | PN ---
DATE: 03/28/2019 SUBJECTIVE: The patient is resting, slightly propped up, eating his lunch comfortably, in no apparent distress. He continued to bleed and has received 1 unit of packed RBCs. In fact, he just received that now. Apparently, he was evaluated by the orthopedic surgeon and Dr. Callahan stated that he does not do this kind of surgery. In fact, he stated that he has never performed ____ and he is reluctant to render further opinion of this complex case and recommended to consult an orthopedic oncologist at [facility]. Unfortunately, the family did not want to go to [facility]. PHYSICAL EXAMINATION: GENERAL: When I examined him, he looked pale, but no jaundice, cyanosis or thyromegaly. No jugular venous distension. No limb edema. VITAL SIGNS: His heart rate was 75, blood pressure was 93/51, temperature was 97.2, respiratory rate was 16 and oxygen saturation was 96%. HEAD, EYES, EARS, NOSE AND THROAT: Normocephalic, atraumatic. NECK: Supple. HEART: Showed normal first and second heart sounds. No gallop or murmur. CHEST: Clear to auscultation. No crepitation or rhonchi. ABDOMEN: Distended, soft, nontender. NEUROLOGIC: He is awake, alert, has left-sided lower motor neuron traumatic facial paralysis. Otherwise, all other cranial nerves are intact. He moves extremities without difficulty. He was fungating squamous cell carcinoma on the dorsal aspect of left forearm that is bleeding intermittently. ASSESSMENT: The patient has been admitted on numerous occasions to [facility] Emergency Room and [facility] itself has required multiple transfusions. In fact, he received 4 units before he arrived here and he is receiving the 5th unit here. LABORATORY DATA: Lab work this morning showed that his hemoglobin was 7, hematocrit 20 with the white cell count 4500 and platelet 253,000. His chemistry showed a serum sodium 140, potassium 3.8, chloride 107, bicarbonate 30, anion gap of 3, BUN 13, creatinine 0.7, estimated GFR was 112 and glucose was 100, calcium was 7.7. ASSESSMENT AND PLAN: Recurrent episode of bleeding from a fungating mass in his left forearm requiring numerous blood transfusions. The patient has been in [facility] hospice; however, he has revoked his hospice services numerous times because of active bleeding and he comes to the Emergency Room numerous times. Look around to find any orthopedic oncologist that works outside the [facility] and we will arrange for him to be seen at least as an outpatient for evaluation and possible amputation. DEMETRIO FAULKNER MD DR: INA/edith JOB#: [id number] / [id number]
[2019-03-29] MEDS: tiZANidine 4 MG TABLET. PO SCH ×3 (06:16→21:21)
[2019-03-29] MEDS: MORPHINE SULFATE 4 MG/ML VIAL. IV PRN ×2 (06:17→21:38)
[2019-03-29 07:20] VITALS: BP 119/63
[2019-03-29] MEDS: LISINOPRIL 5 MG TABLET. PO SCH (09:00)
[2019-03-29] MEDS: POLYETHYLENE GLYCOL 3350 17 GM PACKET. PO SCH (09:52)
[2019-03-29] MEDS: DIGOXIN 125 MCG TABLET. PO SCH (09:52)
[2019-03-29] MEDS: predniSONE 10 MG TABLET PO SCH (09:53)
[2019-03-29] MEDS: METOPROLOL TART IMMED RELEASE 50 MG TABLET. PO SCH ×2 (09:53→21:21)
[2019-03-29] MEDS: LIDOCAINE (700MG/PATCH) PATCH. TD SCH (09:53)
[2019-03-29] MEDS: DOCUSATE SODIUM 100 MG CAPSULE. PO SCH ×2 (09:54→21:20)
--- NOTE | 2019-03-29 10:38 | PDOC ---
PROGRESS NOTES Subjective Subjective He admits less neck pain and headaches this AM. He is apparently taking fioricet at home. Objective Objective Vital Signs Date Time Temp Pulse Resp B/P (MAP) Pulse Ox O2 Delivery O2 Flow Rate FiO2 03/29/19 09:53 95 119/63 03/29/19 07:20 98.3 20 94 Room Air 98.3 Intake and Output 03/29/19 07:00 Intake Total 853 ml Output Total 100 ml Balance 753 ml Intake Oral 450 ml Blood Product IV Normal Saline Flush 403 ml Output Urine Total 100 ml # Voids 1 # Bowel Movements 1 Physical Exam Physical Exam He is alert,sitting in bed with head end of bed elevated. Plan Plan of Care I think ,oncology surgeon is practising at [facility]. Comment Review of Relevant I have reviewed the following items daniella (where applicable) has been applied. Labs Laboratory Tests Test 03/27/19 21:00 03/28/19 05:00 03/28/19 23:30 Hemoglobin 8.0 g/dL (13.0-17.5) 7.0 g/dL (13.0-17.5) 8.2 g/dL (13.0-17.5) Hematocrit 23.5 % (39.0-53.0) 20.5 % (39.0-53.0) 23.6 % (39.0-53.0) White Blood Count 4.5 x10^3/uL (4.0-11.0) Red Blood Count 2.17 x10^6/uL (4.30-5.70) Mean Corpuscular Volume 94 fL (79-100) Mean Corpuscular Hemoglobin 32 pg (25-35) Mean Corpuscular Hemoglobin Concent 34 g/dL (31-37) Red Cell Distribution Width 15.6 % (11.5-14.5) Platelet Count 253 x10^3/uL (140-400) Sodium Level 140 mmol/L (136-145) Potassium Level 3.8 mmol/L (3.5-5.1) Chloride Level 107 mmol/L (98-107) Carbon Dioxide Level 30 mmol/L (21-32) Anion Gap 3 (6-14) Blood Urea Nitrogen 13 mg/dL (8-26) Creatinine 0.7 mg/dL (0.7-1.3) Estimated GFR (Cockcroft-Gault) 112.1 BUN/Creatinine Ratio 19 (6-20) Glucose Level 100 mg/dL (70-99) Calcium Level 7.7 mg/dL (8.5-10.1) Total Bilirubin 0.2 mg/dL (0.2-1.0) Aspartate Amino Transf (AST/SGOT) 11 U/L (15-37) Alanine Aminotransferase (ALT/SGPT) 7 U/L (16-63) Alkaline Phosphatase 53 U/L (46-116) Total Protein 5.0 g/dL (6.4-8.2) Albumin 1.7 g/dL (3.4-5.0) Albumin/Globulin Ratio 0.5 (1.0-1.7) Laboratory Tests Test 03/28/19 23:30 Hemoglobin 8.2 g/dL (13.0-17.5) Hematocrit 23.6 % (39.0-53.0) Medications Current Medications Multi-Ingredient Ointment (Analgesic Shelly) 1 meek PRN QID PRN TP MUSCLE PAIN; S tart 03/26/19 at 20:00 Morphine Sulfate (Morphine Sulfate) 2 mg PRN Q2HR PRN IV PAIN Last administered on 03/26/19at 22:25; Start 03/26/19 at 20:00; Stop 03/26/19 at 23:06; Status DC Ondansetron HCl (Zofran) 4 mg PRN Q6HRS PRN IVP NAUSEA/VOMITING; Start 03/26/19 at 20:00 Polyethylene Glycol (miraLAX PACKET) 17 gm PRN DAILY PRN PO CONSTIPATION; Start 03/26/19 at 20:00 Digoxin (Lanoxin) 125 mcg DAILY PO Last administered on 03/29/19at 09:52; Start 03/27/19 at 09:00 Docusate Sodium (Colace) 100 mg BID PO Last administered on 03/29/19at 09:54; Start 03/26/19 at 21:00 Fentanyl (Duragesic 75mcg/ Hr Patch) 1 patch Q3DAYS TD Last administered on 03/27/19at 09:39; Start 03/27/19 at 09:00 Lisinopril (Prinivil) 2.5 mg DAILY PO Last administered on 03/29/19at 09:00; Start 03/27/19 at 09:00 Metoprolol Tartrate (Lopressor) 50 mg BID PO Last administered on 03/29/19 09:53; Start 03/26/19 at 21:00 Oxycodone/ Acetaminophen (Percocet 10/325) 1 tab PRN Q6HRS PRN PO PAIN Last administered on 03/28/19at 21:47; Start 03/26/19 at 20:00 Polyethylene Glycol (miraLAX PACKET) 17 gm DAILY PO Last administered on 03/29/19 09:52; Start 03/27/19 at 09:00 Prednisone (Prednisone) 10 mg DAILY PO Last administered on 03/29/19 09:53; Start 03/27/19 at 09:00 Morphine Sulfate (Morphine Sulfate) 4 mg PRN Q2HR PRN IV PAIN Last administered on 03/29/19 06:17; Start 03/26/19 at 23:15 Lidocaine (Lidoderm) 1 patch DAILY TD Last administered on 03/29/19 09:53; Start 03/27/19 at 09:00 Miscellaneous (Lidoderm Patch Removal) 1 ea QHS MC Last administered on 03/28/19at 21:00; Start 03/27/19 at 21:00 Info (FLU VACCINE SCREEN per RX) 1 each 1X ONCE MC ; Start 03/27/19 at 04:15; Stop 03/27/19 at 04:16; Status UNV Influenza Virus Vaccine Quadrival (Afluria Quad 2019-20 (3yr Up) Syringe) 0.5 ml ONCE ONCE VAX IM ; Start 03/27/19 at 09:00; Stop 03/27/19 at 09:01; Status DC Non-Formulary Medication (Potassium Gluconate ) 90 mg DAILY PO ; Start 03/27/19 at 09:00; Status UNV Tizanidine HCl (Zanaflex) 4 mg Q8HRS PO Last administered on 03/29/19at 06:16; Start 03/27/19 at 14:00 Acetaminophen/ Butalbital/ Caffeine (Fioricet) 2 tab PRN Q6HRS PRN PO MIGRAINE HEADACHE Last administered on 03/29/19at 01:01; Start 03/28/19 at 11:15 Active Scripts Active Reported Prednisone (Prednisone) 10 Mg Tablet 1 Tab PO DAILY 5 Days Miralax (Polyethylene Glycol 3350) 17 Gm Powd.pack 1 Packet PO DAILY dissolve in water Colace (Docusate Sodium) 100 Mg Capsule 1 Cap PO BID 30 Days Potassium Gluconate 90 Mg Tablet 90 Mg PO DAILY Lyrica (Pregabalin) 75 Mg Capsule 1 Cap PO BID Percocet 10-325 Mg Tablet (Oxycodone/Acetaminophen) 1 Each Tablet 1 Tab PO QIDPRN PRN MDD 4 Tablet(s) 30 Days FENTANYL 75mcg/hr (Fentanyl) 1 Each Patch.td72 1 Patch TP Q3DAYS Aspirin 81 Mg Tab.chew 1 Tab PO DAILY Lisinopril 2.5 Mg Tablet 1 Tab PO DAILY Metoprolol Tartrate 50 Mg Tablet 1 Tab PO BID Eliquis (Apixaban) 5 Mg Tablet 5 Mg PO BID Simvastatin 20 Mg Tablet 1 Tab PO QHS Digoxin 125 Mcg Tablet 125 Mcg PO DAILY Zofran (Ondansetron Hcl) 8 Mg Tablet 8 Mg PO BID PRN Percocet 10-325 Mg Tablet (Oxycodone/Acetaminophen) 1 Each Tablet 1 Tab PO PRN Q6HRS PRN Vitals/I & O Vital Sign - Last 24 Hours 03/28/19 03/28/19 03/28/19 03/28/19 10:45 11:00 11:00 11:15 Temp 97.2 97.2 97.2 97.3 97.2 97.2 97.2 97.3 Pulse 71 76 71 102 Resp 16 16 16 16 B/P (MAP) 93/51 102/53 93/51 (65) 102/54 Pulse Ox 96 03/28/19 03/28/19 03/28/19 03/28/19 11:30 11:33 12:30 13:30 Temp 97.2 97.2 97.3 97.2 97.2 97.3 Pulse 75 65 79 82 Resp 17 16 17 B/P (MAP) 103/54 86/47 108/55 118/72 03/28/19 03/28/19 03/28/19 03/28/19 15:00 15:17 15:50 19:53 Temp 99.2 99.2 Pulse 79 Resp 20 17 17 B/P (MAP) 117/66 (83) Pulse Ox 95 95 O2 Delivery Room Air Room Air Room Air Room Air 11/1/19 03/28/19 03/28/19 03/28/19 19:55 20:00 20:23 21:47 Temp 97.6 97.6 Pulse 89 Resp 20 B/P (MAP) 81/57 (65) Pulse Ox 95 95 95 O2 Delivery Room Air Room Air Room Air Room Air 03/28/19 03/28/19 03/28/19 03/28/19 22:47 23:07 23:30 23:37 Temp 97.4 97.4 Pulse 77 Resp 18 B/P (MAP) 100/53 (69) Pulse Ox 95 95 97 97 O2 Delivery Room Air Room Air Room Air Room Air 03/29/19 03/29/19 03/29/19 03/29/19 06:17 07:15 07:20 09:00 Temp 98.3 98.3 Pulse 95 95 Resp 20 B/P (MAP) 119/63 (81) 119/63 Pulse Ox 97 94 94 O2 Delivery Room Air Room Air Room Air 03/29/19 03/29/19 09:52 09:53 Pulse 95 95 B/P (MAP) 119/63 119/63 Intake and Output 03/28/19 03/28/19 03/29/19 15:00 23:00 07:00 Intake Total 603 ml 150 ml 100 ml Output Total 100 ml Balance 603 ml 150 ml 0 ml Nutrition Consultation Dietary Evaluation: Recommendations by RD: Dietary education by RD, Increase Calorie Intake, Protein supplementation Comments: ensure vanilla tid Expected Outcomes/Goals: to meet >75% est nutr needs Malnutrition Findings: Body Fat Depletion (Non Severe: Mod to Severe Weight Status: Underweight JOESPH JEWELL MD Mar 29, 2019 10:38
[2019-03-29 10:48] LABS: HEMATOCRIT 24.3 % (39.0-53.0); HEMOGLOBIN 8.3 g/dL (13.0-17.5); RED BLOOD COUNT 2.63 x10^6/uL (4.30-5.70); RED CELL DISTRIBUTION WIDTH 15.5 % (11.5-14.5); WHITE BLOOD COUNT 4.7 x10^3/uL (4.0-11.0)
[2019-03-29 11:03] LABS: ALBUMIN 1.8 g/dL (3.4-5.0); ALBUMIN/GLOBULIN RATIO 0.5 (1.0-1.7); CALCIUM 7.8 mg/dL (8.5-10.1); CREATININE 0.8 mg/dL (0.7-1.3); GFR 96.1; POTASSIUM 3.7 mmol/L (3.5-5.1); TOTAL BILIRUBIN 0.3 mg/dL (0.2-1.0); TOTAL PROTEIN 5.5 g/dL (6.4-8.2)
[2019-03-29 11:08] VITALS: BP 115/61
--- NOTE | 2019-03-29 13:54 | PN ---
DATE: 03/29/2019 SUBJECTIVE: The patient is sitting comfortably in his chair, eating his lunch, in no apparent distress. His H and H have stabilized. He did receive 1 unit of packed RBCs and hemoglobin went up to 8.2 and hematocrit 23.6 yesterday and this morning 8.3 and 24.3; however, the dressing on his left forearm was changed about 3 times. We did contact Dr. Campbell, the orthopedic oncologist, who was willing to see the patient and would like to have an MRI of the left forearm that was ordered, unfortunately was not done yet. PHYSICAL EXAMINATION: GENERAL: When I examined him this morning, he was resting slightly propped up in bed, in no apparent respiratory distress. No pallor, jaundice, cyanosis or thyromegaly. No jugular venous distention. No limb edema. VITAL SIGNS: His heart rate was 80, blood pressure 115/61, temperature was 98.2, respiratory rate was 18 and oxygen saturation was 98% on room air. HEAD, EYES, EARS, NOSE and THROAT: Showed normocephalic, atraumatic. NECK: Supple. HEART: Showed normal first and second heart sounds. No gallop, rub or murmur. CHEST: Clear to auscultation. No crepitation or rhonchi. ABDOMEN: Distended, soft, nontender. No guarding or rigidity. No organomegaly. All hernial orifice intact. Bowel sounds normal. NEUROLOGIC: He is awake, alert, responding appropriately. 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 Otherwise, all his cranial nerves are intact. He moves all extremities without difficulty. 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 His intake over the last 24 hours was 170, output was 200. LABORATORY DATA: His lab work this morning showed a white cell count 4700, hemoglobin 8.3, hematocrit 24.3, MCV 93, and platelet count 272,000. Serum sodium was 139, potassium 3.7, chloride 107, bicarbonate 28, anion gap of 4, BUN 13, creatinine 0.8. Estimated GFR was 96 mL per minute. Glucose 142, calcium was 7.8. Total bilirubin, AST, ALT and alkaline phosphatase were normal. Total protein was 5.5. Albumin was 1.8. ASSESSMENT: 1. Recurrent episode of bleeding from a fungating mass in his left forearm due to requiring numerous blood transfusions. 2. The patient has been on hospice; however, he has revoked his hospice services numerous times because of active bleeding. He comes to the Emergency Room numerous times. Dr. Campbell, the orthopedic oncologist at [facility], is willing to see him. Unfortunately, the patient and his do not like to go to [facility]. PLAN: My plan is to get his labs tomorrow and if he remains stable and has no further episodes of bleeding, we can discharge him home, arrange for him to be seen by Dr. Campbell as an outpatient. DEMETRIO FAULKNER MD DR: INA/edith JOB#: [id number] / [id number]
[2019-03-29] MEDS: oxyCODONE/APAP 10/325 1 TAB TABLET PO PRN (14:06)
[2019-03-29 15:21] VITALS: BP 119/51
[2019-03-29 19:45] VITALS: BP 127/59
[2019-03-29] MEDS: PATCH REMOVAL. MC SCH (21:47)
[2019-03-29 23:42] VITALS: BP 117/58
[2019-03-30] MEDS: MORPHINE SULFATE 4 MG/ML VIAL. IV PRN ×2 (00:11→03:45)
[2019-03-30] MEDS: fentaNYL 75MCG/HR PATCH 1 PATCH PATCH.TD72 TD SCH (00:12)
--- NOTE | 2019-03-30 00:35 | NUR ---
New fentanyl patch placed early d/t previous patch not on pt; see eMAR.
[2019-03-30] MEDS: BUTALB/APAP/CAFEIN 50/325/40MG TABLET. PO PRN ×2 (03:44→13:13)
[2019-03-30 03:54] VITALS: BP 144/63
[2019-03-30] MEDS: tiZANidine 4 MG TABLET. PO SCH (05:35)
[2019-03-30 06:36] LABS: HEMATOCRIT 25.2 % (39.0-53.0); HEMOGLOBIN 8.6 g/dL (13.0-17.5); RED BLOOD COUNT 2.71 x10^6/uL (4.30-5.70); RED CELL DISTRIBUTION WIDTH 15.1 % (11.5-14.5); WHITE BLOOD COUNT 5.3 x10^3/uL (4.0-11.0)
[2019-03-30 06:41] LABS: CREATININE 0.8 mg/dL (0.7-1.3); GFR 96.1
[2019-03-30 07:00] VITALS: BP 95/52
[2019-03-30 09:00] VITALS: BP 95/52
[2019-03-30] MEDS: METOPROLOL TART IMMED RELEASE 50 MG TABLET. PO SCH (09:00)
[2019-03-30] MEDS: LISINOPRIL 5 MG TABLET. PO SCH (09:00)
[2019-03-30] MEDS: DIGOXIN 125 MCG TABLET. PO SCH (09:00)
[2019-03-30] MEDS: LIDOCAINE (700MG/PATCH) PATCH. TD SCH (09:00)
[2019-03-30] MEDS: POLYETHYLENE GLYCOL 3350 17 GM PACKET. PO SCH (10:10)
[2019-03-30] MEDS: predniSONE 10 MG TABLET PO SCH (10:11)
[2019-03-30] MEDS: DOCUSATE SODIUM 100 MG CAPSULE. PO SCH (10:11)
[2019-03-30] MEDS: oxyCODONE/APAP 10/325 1 TAB TABLET PO PRN (10:11)
--- NOTE | 2019-03-30 11:42 | DS ---
DATE OF DISCHARGE: 03/30/2019 HOSPITAL COURSE: The patient is a 68-year-old male patient who was transferred from [facility] with recurrent episode of arterial bleed from his left forearm fungating squamous cell carcinoma. He has received a total of 4 units of packed RBCs there and another one here. His H and H have remained stable, and in fact, his hemoglobin today is 8.6 and hematocrit 25.2. He was seen in consultation by the orthopedic surgeon, Dr. Callahan, who basically recommended an orthopedic oncologist's opinion such as at [facility] and we did actually speak with Dr. Campbell, the orthopedic oncologist, who was willing to see the patient there, but the patient and his are refusing to go there to [facility] as he had a bad experience before. However, Dr. Campbell has a clinic at the [facility] and, therefore, I recommended that the patient can be discharged home. I will arrange for him to have an appointment to see Dr. Campbell as an outpatient and also arrange for him to have an MRI of his left forearm at [facility]. PHYSICAL EXAMINATION: GENERAL: When I examined him today, he looked well and was clearly in no apparent respiratory distress. Pale, not jaundiced, cyanosis or thyromegaly. No jugular venous distention. No limb edema. VITAL SIGNS: His heart rate was 55, blood pressure was 95/52, temperature was 97.9, respiratory rate was 16, and oxygen saturation was 97%. HEAD, EYES, EARS, NOSE, AND THROAT: Normocephalic, atraumatic. NECK: Supple. HEART: Showed normal first and second heart sounds. No gallop or murmur. CHEST: Clear to auscultation. No crepitation or rhonchi. ABDOMEN: Distended, soft, nontender. NEUROLOGIC: He has left lower motor neuron facial palsy that is traumatic in nature, but otherwise all other cranial nerves are intact. He moves extremities without difficulty. He has large fungating squamous cell carcinoma of the left forearm covered with dressing. LABORATORY DATA: His lab work this morning showed a white cell count 5300, hemoglobin 8.6, hematocrit 25.2, MCV 93, and platelet count 114,000. His chemistry showed a serum sodium 142, potassium 4, chloride 107, bicarbonate 30, anion gap of 5, BUN 13, creatinine 0.8, estimated GFR was 96 mL/minute, his glucose was 87, calcium was 8. DISCHARGE MEDICATIONS: The patient was discharged home to continue on his digoxin 125 mcg once a day, Colace 100 mg twice a day, fentanyl patch 75 mcg per hour topically q.72 hours, lisinopril 2.5 mg once a day, metoprolol tartrate 50 mg twice a day, ondansetron 8 mg twice a day, oxycodone/APAP 10/325 one tablet every 6 hours and oxycodone 10 mg 4 times a day, polyethylene glycol 17 grams daily, potassium gluconate 90 mg daily, prednisone 10 mg once a day, pregabalin 75 mg twice a day and simvastatin 20 mg once a day. I discontinued his apixaban and aspirin. FINAL DISCHARGE DIAGNOSES: 1. Recurrent episode of bleeding from a fungating mass in his left forearm requiring numerous blood transfusions. His hemoglobin and hematocrit have been stable for more than 24 hours now. 2. The patient has been on hospice; however, he has revoked the hospice several times because of active bleeding and has been seen in the Emergency Room of [facility] and was admitted to [facility] on multiple occasions. 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 3. Coronary artery disease, status post percutaneous coronary intervention with stent deployment. 4. Atrial fibrillation, rate controlled. He was on apixaban that was discontinued because of recurrent episodes of bleeding. 5. Hypertension. 6. Hyperlipidemia. 7. Obstructive sleep apnea. 8. Gastroesophageal reflux disease. 9. Type 2 diabetes mellitus. 10. Severe protein-calorie malnutrition. 11. Severe constipation, likely opioid-induced. I will arrange for him to be seen by Dr. Campbell at his [facility] tomorrow. DEMETRIO FAULKNER MD DR: INA/edith JOB#: [id number] / [id number]
[2019-03-30] MEDS ORDERED: HEPARIN PF 500 UNIT/5 ML DISP.SYRIN. IVP ONE (13:30)
--- NOTE | 2019-03-30 13:40 | NUR ---
Pt escorted out via wheelchair by Torrey CASTAÑEDA.
== END 2019-03-30 13:40 | disposition home or self-care (01) | DRG 843 ==
LOC: 6 SOUTH 19:11
PROVIDERS: ADMIT Internal Medicine; ATTEND Internal Medicine
PROC: 30233N1 Transfusion of Nonautologous Red Blood Cells into Peripheral Vein, Percutaneous Approach (ICD-10-PCS; principal; 2019-03-28)
DX: C76.42 Malignant neoplasm of left upper limb (principal); E43 Unspecified severe protein-calorie malnutrition; G51.0 Bell's palsy; C07 Malignant neoplasm of parotid gland; E11.9 Type 2 diabetes mellitus without complications; Z83.3 Family history of diabetes mellitus; E78.5 Hyperlipidemia, unspecified; G47.33 Obstructive sleep apnea (adult) (pediatric); G89.29 Other chronic pain; I10 Essential (primary) hypertension; I25.10 Atherosclerotic heart disease of native coronary artery without angina pectoris; I48.91 Unspecified atrial fibrillation; K21.9 Gastro-esophageal reflux disease without esophagitis; K59.00 Constipation, unspecified; M47.812 Spondylosis without myelopathy or radiculopathy, cervical region; T40.2X5A Adverse effect of other opioids, initial encounter; Z79.01 Long term (current) use of anticoagulants; Z82.49 Family history of ischemic heart disease and other diseases of the circulatory system; Z85.818 Personal history of malignant neoplasm of other sites of lip, oral cavity, and pharynx; Z95.5 Presence of coronary angioplasty implant and graft
CPT/HCPCS: 36415; 80048; 80053; 85014; 85018; 85025; 85027; 86850; 86900; 86901; 86920; J2270; J7512; P9016; G0378